=== PATIENT | male | born 1950 | race Caucasian/White ===

== ENCOUNTER 2022-03-25 09:24 | Outpatient (CLI) | payer BC, SELFPAY ==
[2022-03-25 09:56] LABS: Basophils Percent Auto 0.4 % (0.2-1.2); Eosinophils Absolute Auto 0.2 K/mm3 (0-0.3); Hematocrit 37.8 % (42.0-52.0); Hemoglobin 11.9 g/dL (14.0-18.0); Immature Granulocyte Absolute 0.03 K/mm3 (0.00-0.031); Immature Granulocyte Percent A 0.4 % (0-0.5); Lymphocytes Absolute Auto 0.86 K/mm3 (0.9-3.2); Lymphocytes Percent Auto 10.3 % (18.3-44.2); Mean Corpuscular HGB Conc 31.5 g/dl (32-36); Mean Corpuscular Hemoglobin 27.9 pg (26-34); Mean Corpuscular Volume 88.7 fl (80-100); Mean Platelet Volume 9.2 fl (7.4-10.4); Monocytes Percent Auto 11.4 % (2.6-8.5); Neutrophils Absolute Auto 6.3 K/mm3 (1.3-6.7); Neutrophils Percent Auto 75.5 % (45.5-73.1); Platelet Count Result 232 k/mm3 (150-375); Red Blood Count 4.26 M/mm3 (4.6-6.20); White Blood Count 8.3 K/mm3 (4.5-10.0)
[2022-03-25 10:11] LABS: Alanine Aminotransferase 17 U/L (6-50); Albumin Level 3.8 g/dL (3.5-5.1); Alkaline Phosphatase 94 U/L (38-126); Anion Gap 8 mmol/L (8-16); Aspartate Amino Transferase 25 U/L (17-59); Bilirubin,Total 0.2 mg/dL (0.2-1.3); Blood Urea Nitrogen 30 mg/dL (9-20); Calcium 8.9 mg/dL (8.4-10.2); Carbon Dioxide 29 mmol/L (22-30); Chloride 100 mmol/L (98-107); Cholesterol 134 mg/dL (0-200); Estimated Glomerular Filt Rate 40; Glucose 241 mg/dL (65-110); HDL Direct 36 mg/dL; Potassium 3.9 mmol/L (3.4-5.0); Sodium 137 mmol/L (137-145); Triglycerides 128 mg/dL (<150)
[2022-03-25 10:17] LABS: Creatinine Urine 84.3 mg/dL
[2022-03-25 10:21] LABS: LDL Cholesterol Direct 58 mg/dL
[2022-03-25 10:41] LABS: Cortisol Random 6.53 ug/dL
[2022-03-25 11:02] LABS: Free T4 Free Thyroxine 0.87 ng/mL (0.78-2.19)
[2022-03-25 11:16] LABS: Folic Acid 6.3 ng/mL (2.76->20); Hemoglobin A1C 7.9 % (<5.7)
[2022-03-25 11:25] LABS: MALB Creatinine Ratio 933.7 mg/g (0-30); Microalbumin Urine Random 787.1 mg/L (0-16.7)
[2022-03-27 22:21] LABS: C-Peptide 3.12 ng/mL (0.80-3.85)
[2022-03-29 06:11] LABS: Insulin Level Total 54.5 uIU/mL (<=19.6)
== END 2022-03-25 09:25 | disposition home or self-care (01) ==
LOC: ANHLAB 09:27
PROVIDERS: PCP Family Medicine; Visit Provider Nurse Practitioner
DX: E11.65 Type 2 diabetes mellitus with hyperglycemia (principal); E78.5 Hyperlipidemia, unspecified; R63.5 Abnormal weight gain
CPT/HCPCS: 36415; 80053; 80061; 82043; 82533; 82607; 82746; 83036; 83525; 84439; 84443; 84681; 85025

== ENCOUNTER 2022-04-29 13:54 | Outpatient (RCR) | payer BC, SELFPAY ==
[2022-04-29 14:00] VITALS: BP 170/68; PULSE 74; RESP 20; TEMP 36.8; O2SAT 98
[2022-04-29] MEDS: FAMOTIDINE 20 MG TABLET PO (14:05)
[2022-04-29] MEDS: diphenhydrAMINE HCl CAP 25 MG CAPSULE PO (14:06)
[2022-04-29] MEDS: ACETAMINOPHEN 325 MG TABLET 650 MG PO (14:06)
[2022-04-29] MEDS: BEBTELOVIMAB 175 MG/2 ML VIAL IV PUSH (14:25)
[2022-04-29 15:06] VITALS: BP 129/72; PULSE 68; O2SAT 97
== END 2022-04-29 16:29 ==
LOC: AMCINF 13:54
PROVIDERS: PCP Family Medicine; Referring Provider Family Medicine; Visit Provider Internal Medicine Hematology & Oncology
DX: U07.1 COVID-19 (principal); E11.22 Type 2 diabetes mellitus with diabetic chronic kidney disease; I12.9 Hypertensive chronic kidney disease with stage 1 through stage 4 chronic kidney disease, or unspecified chronic kidney disease; N18.9 Chronic kidney disease, unspecified
CPT/HCPCS: A9270; M0222; Q0222

== ENCOUNTER 2022-06-09 10:18 | Outpatient (CLI) | payer OTHER, SELFPAY ==
[2022-06-09 10:47] LABS: Basophils Percent Auto 0.5 % (0.2-1.2); Eosinophils Absolute Auto 0.2 K/mm3 (0-0.3); Eosinophils Percent Auto 3.5 % (0-4.4); Hematocrit 36.9 % (42.0-52.0); Hemoglobin 11.6 g/dL (14.0-18.0); Immature Granulocyte Absolute 0.03 K/mm3 (0.00-0.031); Immature Granulocyte Percent A 0.5 % (0-0.5); Lymphocytes Absolute Auto 1.25 K/mm3 (0.9-3.2); Lymphocytes Percent Auto 21.7 % (18.3-44.2); Mean Corpuscular HGB Conc 31.4 g/dl (32-36); Mean Corpuscular Hemoglobin 27.2 pg (26-34); Mean Corpuscular Volume 86.4 fl (80-100); Mean Platelet Volume 9.3 fl (7.4-10.4); Monocytes Absolute Auto 0.7 K/mm3 (0.1-0.6); Monocytes Percent Auto 12.3 % (2.6-8.5); Neutrophils Absolute Auto 3.6 K/mm3 (1.3-6.7); Neutrophils Percent Auto 61.5 % (45.5-73.1); Platelet Count Result 232 k/mm3 (150-375); Red Blood Count 4.27 M/mm3 (4.6-6.20); Red Cell Distribution Width 13.8 % (11.5-14.5); White Blood Count 5.8 K/mm3 (4.5-10.0)
[2022-06-09 10:55] LABS: Alanine Aminotransferase 12 U/L (6-50); Albumin Level 3.7 g/dL (3.5-5.1); Alkaline Phosphatase 81 U/L (38-126); Anion Gap 10 mmol/L (8-16); Aspartate Amino Transferase 19 U/L (17-59); Bilirubin,Total 0.4 mg/dL (0.2-1.3); Blood Urea Nitrogen 24 mg/dL (9-20); Calcium 8.7 mg/dL (8.4-10.2); Carbon Dioxide 27 mmol/L (22-30); Chloride 102 mmol/L (98-107); Cholesterol 124 mg/dL (0-200); Estimated Glomerular Filt Rate 40; Glucose 164 mg/dL (65-110); HDL Direct 33 mg/dL; Potassium 3.9 mmol/L (3.4-5.0); Sodium 139 mmol/L (137-145); Triglycerides 137 mg/dL (<150)
[2022-06-09 10:57] LABS: Iron 71 ug/dL (49-181)
[2022-06-09 11:06] LABS: LDL Cholesterol Direct 39 mg/dL
[2022-06-09 11:09] LABS: Creatinine Urine 59.7 mg/dL
[2022-06-09 11:09] LABS: Percent Iron Saturation 26 % (20-50)
[2022-06-09 11:14] LABS: Free T4 Free Thyroxine 0.89 ng/mL (0.78-2.19)
[2022-06-09 11:20] LABS: Hemoglobin A1C 8.2 % (<5.7)
[2022-06-09 11:27] LABS: MALB Creatinine Ratio 654.9 mg/g (0-30)
== END 2022-06-09 10:19 | disposition home or self-care (01) ==
LOC: ANHLAB 10:26
PROVIDERS: PCP Family Medicine; Visit Provider Nurse Practitioner
DX: D64.9 Anemia, unspecified (principal); E11.65 Type 2 diabetes mellitus with hyperglycemia; E78.5 Hyperlipidemia, unspecified
CPT/HCPCS: 36415; 80053; 80061; 82043; 82607; 82728; 82746; 83036; 83540; 83550; 84439; 84443; 85025

== ENCOUNTER 2022-07-07 09:58 | Outpatient (CLI) | payer OTHER, SELFPAY ==
[2022-07-07 11:33] LABS: Appearance Urine Clear (Clear); Bilirubin Urine Negative (Negative); Blood Urine 1+ (Negative); Color Urine Yellow (Yellow); Glucose Urine UA 2+ mg/dL (Negative); Ketones Urine Negative (Negative); Leukocyte Esterase Ur Negative LEU/UL (NEGATIVE); Nitrate Urine Negative (Negative); Protein Urine 1+ mg/dL (Negative); Specific Grav Ur 1.015 (1.001-1.035); Urobilinogen Urine 0.2 mg/dL (<2.0); pH Urine 5.5 (5.0-9.0)
[2022-07-07 11:42] LABS: Albumin Level 4.3 g/dL (3.5-5.1); Anion Gap 12 mmol/L (8-16); Blood Urea Nitrogen 36 mg/dL (9-20); Calcium 8.8 mg/dL (8.4-10.2); Carbon Dioxide 23 mmol/L (22-30); Chloride 101 mmol/L (98-107); Estimated Glomerular Filt Rate 37; Glucose 198 mg/dL (65-110); Phosphorus 4.4 mg/dL (2.5-4.5); Sodium 136 mmol/L (137-145)
[2022-07-07 11:43] LABS: RBC Urine 0-2 /hpf (0-2); Squamous Epithelial Cell Urine Rare /hpf (Few); WBC Urine 0-3 /hpf (0-3)
[2022-07-07 11:50] LABS: Add Urine Microscopic? YES
[2022-07-07 11:54] LABS: Parathyroid Intact 77.9 pg/mL (7.5-53.5)
[2022-07-07 12:03] LABS: Creatinine Urine 33.7 mg/dL
[2022-07-07 12:06] LABS: Vitamin D 25 Hydroxy 26.3 ng/mL
[2022-07-07 12:22] LABS: MALB Creatinine Ratio 685.8 mg/g (0-30); Microalbumin Urine Random 231.1 mg/L (0-16.7)
== END 2022-07-07 09:59 | disposition home or self-care (01) ==
PROVIDERS: PCP Family Medicine
DX: N18.30 Chronic kidney disease, stage 3 unspecified (principal)
CPT/HCPCS: 36415; 80069; 81001; 82043; 82306; 83970

== ENCOUNTER 2024-06-24 11:44 | Outpatient (CLI) | payer BC, SELFPAY ==
[2024-06-24 14:39] LABS: Alanine Aminotransferase 27 U/L (6-50); Albumin Level 4.2 g/dL (3.5-5.1); Alkaline Phosphatase 70 U/L (38-126); Anion Gap 10 mmol/L (4-12); Aspartate Amino Transferase 63 U/L (17-59); Bilirubin,Total 0.6 mg/dL (0.2-1.3); Blood Urea Nitrogen 55 mg/dL (9-20); Calcium 9.1 mg/dL (8.4-10.2); Carbon Dioxide 26 mmol/L (22-30); Chloride 100 mmol/L (98-107); Cholesterol 143 mg/dL (0-200); Estimated Glomerular Filt Rate 37; Glucose 140 mg/dL (65-110); HDL Direct 42 mg/dL; Potassium 4.9 mmol/L (3.4-5.0); Sodium 136 mmol/L (137-145); Triglycerides 126 mg/dL (<150)
[2024-06-24 14:50] LABS: LDL Cholesterol Direct 57 mg/dL
[2024-06-24 19:57] LABS: Hemoglobin A1C 8.5 % (<5.7)
== END 2024-06-24 11:45 | disposition home or self-care (01) ==
PROVIDERS: PCP Family Medicine; Visit Provider Family Medicine
DX: E11.9 Type 2 diabetes mellitus without complications (principal)
CPT/HCPCS: 36415; 80053; 80061; 83036

== ENCOUNTER 2024-07-04 15:03 | Outpatient (CLI) | payer BC, SELFPAY ==
[2024-07-04 18:27] LABS: Basophils Absolute Auto 0.1 K/mm3 (0.0-0.1); Basophils Percent Auto 0.7 % (0.2-1.2); Eosinophils Absolute Auto 0.4 K/mm3 (0-0.3); Eosinophils Percent Auto 5.1 % (0-4.4); Hemoglobin 12.9 g/dL (14.0-18.0); Immature Granulocyte Absolute 0.02 K/mm3 (0.00-0.031); Immature Granulocyte Percent A 0.3 % (0-0.5); Lymphocytes Percent Auto 19.8 % (18.3-44.2); Mean Corpuscular HGB Conc 33.1 g/dl (32-36); Mean Corpuscular Hemoglobin 29.6 pg (26-34); Mean Corpuscular Volume 89.4 fl (80-100); Mean Platelet Volume 9.6 fl (7.4-10.4); Monocytes Absolute Auto 0.9 K/mm3 (0.1-0.6); Monocytes Percent Auto 11.3 % (2.6-8.5); Neutrophils Absolute Auto 4.8 K/mm3 (1.3-6.7); Neutrophils Percent Auto 62.8 % (45.5-73.1); Platelet Count Result 185 k/mm3 (150-375); Red Blood Count 4.36 M/mm3 (4.6-6.20); White Blood Count 7.6 K/mm3 (4.5-10.0)
[2024-07-04 18:52] LABS: Alanine Aminotransferase 30 U/L (6-50); Alkaline Phosphatase 71 U/L (38-126); Anion Gap 11 mmol/L (4-12); Aspartate Amino Transferase 46 U/L (17-59); Bilirubin,Total 0.3 mg/dL (0.2-1.3); Blood Urea Nitrogen 57 mg/dL (9-20); Calcium 9.1 mg/dL (8.4-10.2); Carbon Dioxide 24 mmol/L (22-30); Chloride 99 mmol/L (98-107); Estimated Glomerular Filt Rate 33; Glucose 237 mg/dL (65-110); Potassium 4.7 mmol/L (3.4-5.0); Sodium 134 mmol/L (137-145)
[2024-07-04 19:01] LABS: Hemoglobin A1C 8.5 % (<5.7)
== END 2024-07-04 15:04 | disposition home or self-care (01) ==
PROVIDERS: PCP Family Medicine; Visit Provider Family Medicine
DX: D50.0 Iron deficiency anemia secondary to blood loss (chronic) (principal); E11.65 Type 2 diabetes mellitus with hyperglycemia; E78.5 Hyperlipidemia, unspecified; L97.512 Non-pressure chronic ulcer of other part of right foot with fat layer exposed
CPT/HCPCS: 36415; 80053; 83036; 85025

== ENCOUNTER 2024-10-05 11:01 | Outpatient (CLI) | payer BC, SELFPAY ==
[2024-10-05 14:38] LABS: Creatinine Urine 48.4 mg/dL
[2024-10-05 14:42] LABS: MALB Creatinine Ratio 168.2 mg/g (0-30); Microalbumin Urine Random 81.4 mg/L (0-16.7)
[2024-10-05 15:49] LABS: Alanine Aminotransferase 30 U/L (6-50); Alkaline Phosphatase 78 U/L (38-126); Anion Gap 4 mmol/L (4-12); Aspartate Amino Transferase 73 U/L (17-59); Bilirubin,Total 0.5 mg/dL (0.2-1.3); Blood Urea Nitrogen 55 mg/dL (9-20); Calcium 8.7 mg/dL (8.4-10.2); Carbon Dioxide 27 mmol/L (22-30); Chloride 107 mmol/L (98-107); Cholesterol 134 mg/dL (0-200); Estimated Glomerular Filt Rate 37; Glucose 148 mg/dL (65-110); HDL Direct 43 mg/dL; Sodium 138 mmol/L (137-145); Triglycerides 105 mg/dL (<150)
[2024-10-05 16:28] LABS: LDL Cholesterol Direct 48 mg/dL
[2024-10-05 21:05] LABS: Hemoglobin A1C 7.8 % (<5.7)
== END 2024-10-05 11:02 | disposition home or self-care (01) ==
LOC: ANHGOSHLAB 11:02
PROVIDERS: PCP Family Medicine; Visit Provider Family Medicine
DX: E11.9 Type 2 diabetes mellitus without complications (principal); I25.10 Atherosclerotic heart disease of native coronary artery without angina pectoris; N18.30 Chronic kidney disease, stage 3 unspecified
CPT/HCPCS: 36415; 80053; 80061; 82043; 83036

== ENCOUNTER 2024-12-20 07:48 | Outpatient (CLI) | payer BC, SELFPAY ==
--- OUTSIDE RECORDS SUMMARY | 2024-12-20 07:51 | XMS_ITS ---
Author Organization [facility] Address Unknown Problems Problem Status Start Date End Date MUSCLE WASTING AND ATROPHY, NOT ELSEWHERE CLASSIFIED, MULTIPLE SITES (Primary) (M62.59 - ICD-10-CM) ACTIVE 06/05/2023 OTHER INJURY OF UNSPECIFIED BODY REGION, SUBSEQUENT ENCOUNTER (T14.8XXD - ICD-10-CM) ACTIVE 06/05/2023 CHRONIC KIDNEY DISEASE, STAG E 3 UNSPECIFIED (N18.30 - ICD-10-CM) ACTIVE 06/05/2023 MUSCLE WEAKNESS (GENERALIZED) (M62.81 - ICD-10-CM) ACT JULIA 06/05/2023 UNSPECIFIED ABNORMALITIES OF GAIT AND MOBILITY (R26.9 - ICD-10-CM) ACTIVE 06/05/2023 COGNITIVE COMMUNICATION DEFICIT (R41.841 - ICD-10-CM) ACTIVE 06/05/2023 TYPE 2 DIABETES MELLITUS WIT HOUT COMPLICATIONS (E11.9 - ICD-10-CM) ACTIVE 06/05/2023 HYPERLIPIDEMIA, UNSPECIFIED (E78.5 - ICD-10-CM) ACTIVE 06/05/2023 HEART FAILURE, UNSPECIFIED (I50.9 - ICD-10-CM) ACTIVE 06/05/2023 OBSTRUCTIVE SLEEP APNEA (JUAN CARLOS LT) (PEDIATRIC) (G47.33 - ICD-10-CM) ACTIVE 06/05/2023 ATHEROSCLEROTIC HEART DISEAS E OF [place] 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) ACTIVE 06/05/2023 PRESENCE OF CARDIAC PACEMAKER (Z95.0 - ICD-10-CM) ACTI VE 06/05/2023 VENOUS INSUFFICIENCY (CHRONI C) (PERIPHERAL) (I87.2 - ICD-10-CM) ACTIVE 06/05/2023 HYPOVOLEMIA (E86.1 - ICD-10-CM) ACTIVE ACUTE POSTHEMORRHAGIC ANEMIA (D62 - ICD-10-CM) ACTIVE 06/05/2023 DIFFICULTY IN WALKING, NOT E LSEWHERE CLASSIFIED (R26.2 - ICD-10-CM) ACTIVE 06/05/2023 UNSPECIFIED FALL, SUBSEQUENT ENCOUNTER (W19.XXXD - ICD-10-CM) ACTIVE 06/05/2023 Results * CBC (INCLUDES DIFF/PLT) Performed by: [employer], [facility] Joint [facility] [address] [phone] Fede Hill MD Component Value Range Date PLATELET COUNT 358 Thousand/uL 140-400 06/13/2023 01:34 am EDT * Individual Tests: CBC (INCLUDES DIFF/PLT) / Enhanced PDF Report [id number] Performed by: [employer] [employer] [address] [address] Fede Hill MD Component Value Range Date Enhanced PDF Report [id number] See Attachment 06/13/2023 01:34 am EDT * CBC (INCLUDES DIFF/PLT) Performed by: [employer], [facility] [employer] [address] [address] Fede Hill MD Component Value Range Date HEMATOCRIT 29.9 % 38.5-50.0 06/13/2023 01:3 4 am EDT MCH 25.3 pg 27.0-33.0 06/13/2023 01:3 4 am EDT WHITE BLOOD CELL COUNT 7.0 Thousand/uL 3.8-10.8 01:34 am EDT RED BLOOD CELL COUNT 3.67 Million/uL 4.20-5.80 05/17 01:34 am EDT HEMOGLOBIN 9.3 g/dL 13.2-17.1 06/13/2023 01:3 4 am EDT MCHC 31.1 g/dL 32.0-36.0 06/13/2023 01:3 4 am EDT ABSOLUTE NEUTROPHILS 5159 cells/uL 1968-8656 2022 01:34 am EDT ABSOLUTE LYMPHOCYTES 980 cells/uL 850-3900 023 01:34 am EDT ABSOLUTE MONOCYTES 630 cells/uL 200-950 01:34 am EDT ABSOLUTE EOSINOPHILS 189 cells/uL 15-500 023 01:34 am EDT ABSOLUTE BASOPHILS 42 cells/uL 0-200 01:34 am EDT MPV 9.2 fL 7.5-12.5 06/13/2023 01:3 4 am EDT MCV 81.5 fL 80.0-100.0 06/13/2023 01:3 4 am EDT RDW 16.2 % 11.0-15.0 06/13/2023 01:3 4 am EDT NEUTROPHILS 73.7 % 06/13/2023 01:3 4 am EDT LYMPHOCYTES 14.0 % 06/13/2023 01:3 4 am EDT MONOCYTES 9.0 % 06/13/2023 01:3 4 am EDT EOSINOPHILS 2.7 % 06/13/2023 01:3 4 am EDT BASOPHILS 0.6 % 06/13/2023 01:3 4 am EDT * CBC (INCLUDES DIFF/PLT) [facility]formed [facility]: [facility] [address] [address] Fede Hill MD Component Value Range Date NEUTROPHILS 63.3 % 06/08/2023 03:3 6 pm EDT LYMPHOCYTES 16.9 % 06/08/2023 03:3 6 pm EDT MONOCYTES 14.8 % 06/08/2023 03:3 6 pm EDT EOSINOPHILS 4.7 % 06/08/2023 03:3 6 pm EDT BASOPHILS 0.3 % 06/08/2023 03:3 6 pm EDT HEMATOCRIT 27.5 % 38.5-50.0 06/08/2023 03:3 6 pm EDT RDW 16.5 % 11.0-15.0 06/08/2023 03:3 6 pm EDT * BASIC METABOLIC PANEL [facility]: [facility] [address] [place] [address] Fede Hill MD Component Value Range Date BUN/CREATININE RATIO 22 (calc) 6-22 023 03:36 pm EDT * CBC (INCLUDES DIFF/PLT) [facility]: [facility] [address] [phone] Fede Hill MD Component Value Range Date ABSOLUTE NEUTROPHILS 3988 cells/uL 1170-4831 2022 03:36 pm EDT ABSOLUTE LYMPHOCYTES 1065 cells/uL 850-3900 2022 03:36 pm EDT ABSOLUTE MONOCYTES 932 cells/uL 200-950 03:36 pm EDT ABSOLUTE EOSINOPHILS 296 cells/uL 15-500 023 03:36 pm EDT ABSOLUTE BASOPHILS 19 cells/uL 0-200 3 03:36 pm EDT MPV 9.3 fL 7.5-12.5 06/08/2023 03:3 6 pm EDT MCV 80.6 fL 80.0-100.0 06/08/2023 03:3 6 pm EDT HEMOGLOBIN 8.7 g/dL 13.2-17.1 06/08/2023 03:3 6 pm EDT MCHC 31.6 g/dL 32.0-36.0 06/08/2023 03:3 6 pm EDT * BASIC METABOLIC PANEL Performed by: [facility] [address] [address] Fede Hill MD Component Value Range Date CALCIUM 8.3 mg/dL 8.6-10.3 06/08/2023 03:3 6 pm EDT GLUCOSE 157 mg/dL 65-99 06/08/2023 03:3 6 pm EDT UREA NITROGEN (BUN) 35 mg/dL 7-25 06/08/20 03:36 pm EDT CREATININE 1.60 mg/dL 0.70-1.28 06/08/2023 03:3 6 pm EDT * CBC (INCLUDES DIFF/PLT) [facility]: [facility] [address] [address] Fede Hill MD Component Value Range Date RED BLOOD CELL COUNT 3.41 Million/uL 4.20-5.80 05/17 03:36 pm EDT * BASIC METABOLIC PANEL Performed by: [facility] [address] [phone] Fede Hill MD Component Value Range Date EGFR 45 mL/min/1.73m2 > OR = 60 06/08/2023 03:36 pm EDT SODIUM 138 mmol/L 135-146 06/08/2023 03:3 6 pm EDT POTASSIUM 4.4 mmol/L 3.5-5.3 06/08/2023 03:3 6 pm EDT CHLORIDE 103 mmol/L 98-110 06/08/2023 03:3 6 pm EDT CARBON DIOXIDE 27 mmol/L 20-32 06/08/2023 03 :36 pm EDT * CBC (INCLUDES DIFF/PLT) Performed by: [employer], [facility] [employer] [address] [address] Fede Hill MD Component Value Range Date MCH 25.5 pg 27.0-33.0 06/08/2023 03:3 6 pm EDT * Individual Tests: BASIC METABOLIC PANEL / CBC (INCLUDES DIFF/PLT) / Enhanced PDF Report [id number] Performed by: [employer], [facility] [employer] [address] [facility] [address] Fede Hill MD Component Value Range Date Enhanced PDF Report [id number] See Attachment 06/08/2023 03:36 pm EDT * CBC (INCLUDES DIFF/PLT) Performed by: [employer], [facility] [employer] [address] [address] Fede Hill MD Component Value Range Date PLATELET COUNT 281 Thousand/uL 140-400 06/08/2023 03:36 pm EDT WHITE BLOOD CELL COUNT 6.3 Thousand/uL 3.8-10.8 03:36 pm EDT Encounters Encounter Performer Performer Role Encounter Diagnoses Location Date Discharge - Discharged to home or self care - Home - Private home/apt. with no home health services [facility] 06/05/2023 02:30 pm EDT - 06/15/2023 03:41 pm EDT Immunizations Vaccine Date SARS-COV-2 (COVID-19) 01/10/2021 12:00 a m EST SARS-COV-2 (COVID-19) 12/10/2020 12:00 a m EST Social History
--- OUTSIDE RECORDS SUMMARY | 2024-12-20 07:51 | XMS_ITS | Encounter Summary ---
Author Organization [facility] Address [address] [place] [address] Phone Care Team Providers Care Political Advisor Name Role Phone María Ochoa APRN, AMA Unavailable [phone] Nicho Posada MD Primary Care Provider [phone] Gregorio Garza DPM Unavailable Unavailable Encounter Details Date Type Department Care Team (Late st Contact Info) Description 10/30/2022 Lab Requisition [facility] Laboratory Services [address] [place] [address] Raghavendra Kimble MD [address] [place] [address] Syncope and collapse Social History Tobacco Use Types Packs/Day Years Used Date Smoking Tobacco: Never Smokeless Tobacco: Never Alcohol Use Standard Drinks/Week Comments Yes 1 (1 standard drink = 0.6 oz pure alcohol) 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 No / Unsure 10/29/2022 10:33 AM INSURANCE COMPLIANCE ANALYST documented as of this encounter Plan of Treatment Not on file documented as of this encounter Procedures Procedure Name Priority Date/Time Associated Diagnosis Comments CBC WITH AUTO DIFFERENTIAL Routine 10/30/2022 8:15 AM INSURANCE COMPLIANCE ANALYST Syncope and collapse COMPLETE BLOOD COUNT (CBC) WITH DIFF Routine 10/30/2022 8:15 AM INSURANCE COMPLIANCE ANALYST Syncope and collapse BASIC METABOLIC PANEL W/ CALCIUM TOTAL Routine 10/30/2022 8:15 AM INSURANCE COMPLIANCE ANALYST Syncope and collapse ALBUMIN Routine 10/30/2022 8:15 AM INSURANCE COMPLIANCE ANALYST Syncope and collapse ADJUSTED CALCIUM*[facility] Routine 10/30/2022 8:15 AM INSURANCE COMPLIANCE ANALYST Syncope and collapse documented in this encounter Results * (ABNORMAL) ALBUMIN (10/30/2022 8:15 AM INSURANCE COMPLIANCE ANALYST) ALBUMIN 2.5(L) 3.4 - 4.8 g/dL 10/30/2022 12:02 PM INSURANCE COMPLIANCE ANALYST [facility] Blood Venipuncture / Unknown 10/30/2022 8:15 AM INSURANCE COMPLIANCE ANALYST 10/30/2022 10:36 AM INSURANCE COMPLIANCE ANALYST us Raghavendra Kimble MD CHEMISTRY ORDERABLES Final Resul t Performing Organization Address City/State/[facility] Co de Phone Number [facility] [address] [place] [address] * ADJUSTED CALCIUM*[facility] (10/30/2022 8:15 AM INSURANCE COMPLIANCE ANALYST) ADJUSTED CALCIUM 9.9 8.8 - 10.0 mg/dL 10/30/2022 12:03 PM INSURANCE COMPLIANCE ANALYST [facility] Blood Venipuncture / Unknown 10/30/2022 8:15 AM INSURANCE COMPLIANCE ANALYST 10/30/2022 10:36 AM INSURANCE COMPLIANCE ANALYST us Raghavendra Kibmle MD CHEMISTRY ORDERABLES Final Resul t [facility] [address] [place] [address] * (ABNORMAL) CBC WITH AUTO DIFFERENTIAL (10/30/2022 8:15 AM [facility]) WBC 9.16 3.90 - 11.00 10(3)/mcL 10/30/2022 11:41 AM [facility] RBC 4.06(L) 4.20 - 5.80 10(6)/mcL 10/30/2022 11:41 AM [facility] HEMOGLOBIN (HGB) 11.3(L) 12.6 - 17.4 g/dL 10/30/2022 11:41 AM [facility] HEMATOCRIT (HCT) 35.3(L) 39.8 - 52.2 % 10/30/2022 11:41 AM [facility] MCV 86.9 80.0 - 100.0 fL 10/30/2022 11:41 AM [facility] MCH 27.8 26.5 - 33.9 pg 10/30/2022 11:41 AM [facility] MCHC 32.0 31.5 - 36.0 g/dL 10/30/2022 11:41 AM [facility] PLATELET COUNT 345 140 - 445 10(3)/mcL 10/30/2022 11:41 AM [facility] MPV 9.2 >=0.0 fL 10/30/2022 11:41 AM [facility] RDW 14.0 12.0 - 15.0 % 10/30/2022 11:41 AM [facility] NEUTROPHILS 72.2 % 10/30/2022 11:41 AM [facility] LYMPHOCYTES 11.7 % 10/30/2022 11:41 AM [facility] MONOCYTES 11.1 % 10/30/2022 11:41 AM [facility] EOSINOPHILS 3.7 % 10/30/2022 11:41 AM [facility] IMMATURE GRANULOCYTE % 0.9 % 10/30/2022 11:41 AM [facility] BASOPHILS 0.4 % 10/30/2022 11:41 AM [facility] ABSOLUTE NEUTROPHILS 6.61 1.40 - 7.30 10(3)/[facility] 10/30/2022 11:41 AM [facility] ABSOLUTE LYMPHOCYTES 1.07(L) 1.30 - 2.90 10(3)/mcL 10/30/2022 11:41 AM [facility] ABSOLUTE MONOCYTES 1.02(H) 0.10 - 0.80 10(3)/mcL 10/30/2022 11:41 AM [facility] ABSOLUTE EOSINOPHIL 0.34(H) 0.00 - 0.30 10(3)/[facility] 10/30/2022 11:41 AM [facility] ABSOLUTE BASOPHILS 0.04 0.00 - 0.10 10(3)/[facility] 10/30/2022 11:41 AM [facility] ABSOLUTE IMMATURE GRANULOCYTE 0.08 0.00 - 0.10 10 (3) mcL. 10/30/2022 11:41 AM [facility] NRBC PER 100 WBC 0.0 0.0 - 0.0 % 10/30/2022 11:41 AM [facility] ABSOLUTE NRBC 0.00 10 (3) mcL. 10/30/2022 11:41 AM [facility] Blood Venipuncture / Unknown 10/30/2022 8:15 AM [facility] 10/30/2022 10:36 AM [facility] us Raghavendra Shyanne VILLARREAL HEMATOLOGY ORDERABLES Final Resu lt [facility] [address] [place] [address] * (ABNORMAL) BASIC METABOLIC PANEL W/ CALCIUM TOTAL (10/30/2022 8:15 AM [facility]) SODIUM 138 133 - 145 mmol/L 10/30/2022 11:55 AM [facility] POTASSIUM 4.3 3.5 - 5.1 mmol/L 10/30/2022 11:55 AM [facility] CHLORIDE 108 96 - 108 mmol/L 10/30/2022 11:55 AM [facility] CO2, VENOUS 24 21 - 32 mmol/L 10/30/2022 11:55 AM [facility] ANION GAP 10.3 10.0 - 20.0 mmol/L 10/30/2022 11:55 AM [facility] GLUCOSE 243(H) 83 - 110 mg/dL 10/30/2022 11:55 AM [facility] BUN 23(H) 6 - 19 mg/dL 10/30/2022 11:55 AM [facility] CREATININE, BLOOD 1.40(H) 0.50 - 1.30 mg/dL 10/30/2022 11:55 AM [facility] BUN/CREATININE RATIO 16 12 - 20 ratio 10/30/2022 11:55 AM [facility] CALCIUM 8.7(L) 8.8 - 10.0 mg/dL 10/30/2022 11:55 AM [facility] Comment:Calcium low. Correct ed calcium to follow. GFR, ESTIMATED 53 10/30/2022 11:55 AM [facility] Comment: This eGFR is calculated using 2020 CKD-EPI Creatinine equation without race modifier based on the NKF-ASN task force recommendations. -In most healthy people, the normal GFR is 90 mL/min/1.73 m2 or higher. -A result of 60-89 mL/min/1.73 m2 without kidney damage may be normal in some people (such as the elderly, infants) -A result of 60-89 mL/min/1.73 m2 for three months or more, along with kidney damage (such as persistent protein in the urine), means the person has early kidney disease. -When GFR is <60 for three months or more, chronic kidney disease (CKD) is present Blood Venipuncture / Unknown 10/30/2022 8:15 AM INSURANCE COMPLIANCE ANALYST 10/30/2022 10:36 AM [facility] us Raghavendra Kimble MD CHEMISTRY ORDERABLES Final Resul t [facility] [address] [place] [address] documented in this encounter Visit Diagnoses Diagnosis Syncope and collapse documented in this encounter Additional Health Concerns Assessment Noted Time PHQ-9 Depression Total Score: 0 08/05/20 3:00 PM CDT documented as of this encounter Care Teams Political Advisor Relationship Specialty Start Date End Date Nicho Posada MD [facility] [employer] [address] [place] [address] PCP - General Family Medicine 01/08/22 María Ochoa APRN, SLEEP TECH [address] [place] [address] Referring Provider Advanced Practice Nurse 05/01/21 Gregorio Garza DPM [address] [employer] [address] [place] [address] Consulting Physician Podiatry 07/03/22 documented as of this encounter
--- OUTSIDE RECORDS SUMMARY | 2024-12-20 07:52 | XMS_ITS | Encounter Summary ---
Author Organization [facility] Address [address] [place] [address] Phone Care Team Providers Care Ammonia Worker Name Role Phone María Ochoa APRN, PERLITE GRINDER Unavailable [phone] Nicho Posada MD Primary Care Provider [phone] Gregorio Garza DPM Unavailable Unavailable Encounter Details Date Type Department Care Team (Latest Contact Info) Description 10/31/[address] 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 No / Unsure 10/29/2022 10:33 AM MANAGER OF QUALITY documented as of this encounter Plan of Treatment Scheduled Orders Name Type Priority Associated Diagnoses Orde r Schedule BASIC METABOLIC PANEL W/ CALCIUM TOTAL Lab Routine Hypertension, unspecified type Expected: 10/31/2022 (Approximate), Expires: 10/31/2023 documented as of this encounter Visit Diagnoses Diagnosis Hypertension, unspecified type- Primary documented in this encounter Additional Health Concerns Assessment Noted Time PHQ-9 Depression Total Score: 0 08/05/20 21 3:00 PM CDT documented as of this encounter Care Teams Ammonia Worker Relationship Specialty Start Date End Date Nicho Posada MD [address] [place] [address] PCP - General Family Medicine 01/08/22 María Ochoa APRN, PERLITE GRINDER [address] [place] [address] Referring Provider Advanced Practice Nurse 05/01/21 Gregorio Garza DPM [address] [place] [address] Consulting Physician Podiatry 07/03/22 documented as of this encounter
--- OUTSIDE RECORDS SUMMARY | 2024-12-20 07:52 | XMS_ITS | Encounter Summary ---
Author Organization [facility] Address [address] [place] [address] Phone Care Team Providers Care Division Director Name Role Phone María Ochoa APRN, WOOD ROUTER Unavailable [phone] Nicho Posada MD Primary Care Provider [phone]- [phone] Gregorio Garza DPM Unavailable Unavailable Encounter Details Date Type Department Care Team (Late st Contact Info) Description 12/01/2022 Lab Requisition [facility] Laboratory Services [address] [place] [address] Brian Madsen MD [address] [place] [address] Chronic kidney disease, unspecified Social History Tobacco Use Types Packs/Day Years Used Date Smoking Tobacco: Never Smokeless Tobacco: Never Alcohol Use Standard Drinks/Week Comments Yes 1 (1 standard drink = 0.6 oz pure alcohol) 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 No / Unsure 11/20/2022 2:29 PM STONE DRILLER HELPER documented as of this encounter Plan of Treatment Not on file documented as of this encounter Procedures Procedure Name Priority Date/Time Associated Diagnosis Comments RENAL FUNCTION PANEL (RFP) Routine 12/01/2022 9:25 AM STONE DRILLER HELPER Chronic kidney disease, unspecified ADJUSTED CALCIUM*[facility] Routine 12/01/2022 9:25 AM STONE DRILLER HELPER Chronic kidney disease, unspecified documented in this encounter Results * ADJUSTED CALCIUM*[facility] (12/01/2022 9:25 AM STONE DRILLER HELPER) ADJUSTED CALCIUM 9.6 8.8 - 10.0 mg/dL 12/01/2022 1:00 PM [facility] Blood Venipuncture / Unknown 12/01/2022 9:25 AM STONE DRILLER HELPER 12/01/2022 10:22 AM STONE DRILLER HELPER us Brian Madsen MD CHEMISTRY ORDERABLES Final Result [address] [address] * (ABNORMAL) RENAL FUNCTION PANEL (RFP) (12/01/2022 9:25 AM STONE DRILLER HELPER) SODIUM 140 133 - 145 mmol/L 12/01/2022 12:34 PM [facility] POTASSIUM 4.3 3.5 - 5.1 mmol/L 12/01/2022 12:34 PM [facility] CHLORIDE 107 96 - 108 mmol/L 12/01/2022 12:34 PM [facility] CO2, VENOUS 29 21 - 32 mmol/L 12/01/2022 12:34 PM [facility] ANION GAP 8.3(L) 10.0 - 20.0 mmol/L 12/01/2022 12:34 PM [facility] GLUCOSE 226(H) 83 - 110 mg/dL 12/01/2022 12:34 PM [facility] Comment: Venipuncture should occur prior to administration of sulfasalazine and/or sulfapyridine. Glucose can be falsely depressed after administration of sulfasalazine, and falsely elevated with administration of sulfapyridine. BUN 21(H) 6 - 19 mg/dL 12/01/2022 12:34 PM [facility] CREATININE, BLOOD 1.20 0.50 - 1.30 mg/dL 12/01/2022 12:34 PM [facility] BUN/CREATININE RATIO 18 12 - 20 ratio 12/01/2022 12:34 PM [facility] ALBUMIN 2.9(L) 3.4 - 4.8 g/dL 12/01/2022 12:34 PM [facility] CALCIUM 8.7(L) 8.8 - 10.0 mg/dL 12/01/2022 12:34 PM [facility] Comment:Calcium low. Correct ed calcium to follow. PHOSPHORUS 3.7 2.6 - 4.5 mg/dL 12/01/2022 12:34 PM [facility] GFR, ESTIMATED 64 12/01/2022 12:34 PM [facility] Comment: This eGFR is calculated using [...] (CKD) is present Blood Venipuncture / Unknown 12/01/2022 9:25 AM STONE DRILLER HELPER 12/01/2022 10:22 AM STONE DRILLER HELPER us Brian Madsen MD CHEMISTRY ORDERABLES Final Result [facility] [address] [place] [address] documented in this encounter Visit Diagnoses Diagnosis Chronic kidney disease, unspecified documented in this encounter Additional Health Concerns Assessment Noted Time PHQ-9 Depression Total Score: 0 08/05/20 21 3:00 PM CDT documented as of this encounter Care Teams Division Director Relationship Specialty Start Date End Date Nicho Posada MD [address] [employer] [address] [place] [address] PCP - General Family Medicine 01/08/22 María Ochoa APRN, WOOD ROUTER [address] [place] [address] Referring Provider Advanced Practice Nurse 05/01/21 Gregorio Garza DPM [address] [place] [address] Consulting Physician Podiatry 07/03/22 documented as of this encounter
--- OUTSIDE RECORDS SUMMARY | 2024-12-20 07:52 | XMS_ITS | Encounter Summary ---
Author Organization [facility] Address [facility] [place] [address] [place] [address] Care Team Providers Care Chain Forming Machine Operator Name Role Phone Puma Coronado MD Unavailable Edu Savaedra MD Unavailable Unavailab Alexis Deras MD Unavailable [phone] Familia Ford APRN Unavailable [phone] Nicho Posada MD Primary Care Provider [phone]- [phone] Dhaval Dyer MD Unavailable Encounter Details Date Type Department Care Team (Late st Contact Info) Description 05/04/2023 Hospital Orders Only [place] [address] [place] [address] Dhaval Dyer MD [address] [place] [address] Social History Tobacco Use Types Packs/Day Years Used Date Smoking Tobacco: Never Smokeless Tobacco: Never Alcohol Use Standard Drinks/Week Comments No 0 (1 standard drink = 0.6 oz pur e alcohol) Sex and Gender Information Value Date Recorded Sex Assigned at Male 12/16/2024 1:31 PM PRACTICE PERFORMANCE MANAGER Legal Sex Male 9:51 PM CDT Gender Identity Male 02/24/2022 7:56 AM CDT Sexual Orientation Not on file COVID-19 Exposure Response Date Recorded In the last 10 days, have yo u been in contact with someone who was confirmed or suspected to have Coronavirus/COVID-19? No / Unsure 04/24/2023 10:21 AM CDT documented as of this encounter Functional Status * RETIRED Are you deaf or do you have serious difficulty hearing Answer Date of Assessment Author Status No 10/17/2022 12:00 AM PRACTICE PERFORMANCE MANAGER Acti ve * RETIRED Are you blind or do you have serious difficulty seeing, even when wearing glasses? Answer Date of Assessment Author Status No 10/17/2022 12:00 AM PRACTICE PERFORMANCE MANAGER Acti ve * Do you have serious difficulty walking or climbing stairs? Answer Date of Assessment Author Status Yes 10/17/2022 12:00 AM Mariaa Beaver RN Active * Do you have difficulty dressing or bathing? Answer Date of Assessment Author Status No 10/17/2022 12:00 AM Mariaa Beaver RN Active * Because of a physical, mental, or emotional condition, do you have difficulty doing errands alone such as visiting a doctor's office or shopping? Answer Date of Assessment Author Status No 10/17/2022 12:00 AM Mariaa Beaver RN Active documented as of this encounter Mental Status * Because of a physical, mental, or emotional condition, do you have serious difficulty concentrating, remembering, or making decisions? Answer Entry Date Author Status No 10/17/2022 12:00 AM Mariaa Beaver RN Active documented in this encounter Plan of Treatment Upcoming Encounters Date Type Department Care Team (Late st Contact Info) Description 02/02/2025 3:30 AM CDT Allied Health/Nurse Visit [facility] [address] [place] [address] Dhaval Dyer MD [address] [place] [address] 02/10/2025 11:15 AM CDT Office Visit [facility] [address] [place] [address] Servando Kumar, DPJohn [address] [place] [phone] documented as of this encounter Visit Diagnoses Not on filedocumented in this encounter Care Teams Chain Forming Machine Operator Relationship Specialty Start Date End Date Nicho Posada MD [address] [address] PCP - General FAMILY PRACTICE 02/21/22 Puma Coronado MD [address] [facility] [place] [place] [address] Mikael Production Support Consultant CARDIOVASCULAR DISEASE 01/28/18 Edu Saavedra MD [address] [facility] [place] [place] [address] Consulting Physician SURGERY 01/28/18 Alexis Bush MD [address] [place] [address] Consulting Physician INTERVENTIONAL CARDIOLOGY 01/09/21 Familia Ford APRN [address] [place] [address] Nurse Practitioner NURSE PRACTITIONER 01/09/21 Dhaval Dyer MD [address] [place] [phone] Consulting Physician CLINICAL CARDIAC ELECTROPHYSIOLOGY 05/08/23 documented as of this encounter
--- OUTSIDE RECORDS SUMMARY | 2024-12-20 07:52 | XMS_ITS | Encounter Summary ---
Author Organization [facility] Address [address] [place] [address] Phone Care Team Providers Care Advanced Practice Nurse Psychotherapist Name Role Phone María Ochoa APRN, CORE ASSEMBLY SUPERVISOR Unavailable [phone] Nicho Posada MD Primary Care Provider [phone] Gregorio Garza DPM Unavailable Unavailable Reason for Visit * Reason Comments Medication Refill Encounter Details Date Type Department Care Team (Late st Contact Info) Description 08/18/2022 Refill [facility] [address] [place] [address] Brian Madsen MD [address] [place] [address] Medication Refill Social History Tobacco Use Types Packs/Day Years Used Date Smoking Tobacco: Never Smokeless Tobacco: Never Alcohol Use Standard Drinks/Week Comments Yes 1 (1 standard drink = 0.6 oz pur e alcohol) Metal Trimmer PHQ-2 Answer Date Recorded Total Score - [...] suspected to have Coronavirus/COVID-19? No / Unsure 07/31/2022 4:15 PM CDT documented as of this encounter Miscellaneous Notes * Telephone Encounter - Kaylah Phillips RN - 08/18/2022 1:42 PM CDT Requested Prescriptions Pending Prescriptions Disp Refills ??? amLODIPine (NORVASC) 5 MG Tablet [Pharmacy Med Name: AMLODIPINE BESYLATE 5MG TABLETS] 90 Tablet0 Sig: TAKE 1 TABLET BY MOUTH DAILY documented in this encounter Plan of Treatment Not on file documented as of this encounter Visit Diagnoses Not on filedocumented in this encounter Additional Health Concerns Assessment Noted Time PHQ-9 Depression Total Score: 0 08/05/20 3:00 PM CDT documented as of this encounter Care Teams Advanced Practice Nurse Psychotherapist Relationship Specialty Start Date End Date Nicho Posada MD [address] [place] [address] [employer] [address] [place] [address] PCP - General Family Medicine 01/08/22 María Ochoa APRN, CORE ASSEMBLY SUPERVISOR [address] [place] [address] Referring Provider Advanced Practice Nurse 05/01/21 Gregorio Garza DPM [address] [place] [address] [email or web address] [address] [place] [address] Consulting Physician Podiatry 07/03/22 documented as of this encounter
--- OUTSIDE RECORDS SUMMARY | 2024-12-20 07:52 | XMS_ITS | Encounter Summary ---
Author Organization [facility] Address [address] [place] [address] Phone Care Team Providers Care Salesperson Men'S Hats Name Role Phone María Ochoa APRN, SUPERVISOR DUMPING Unavailable [phone] Nicho Posada MD Primary Care Provider [phone] Gregorio Garza DPM Unavailable Unavailable Encounter Details Date Type Department Care Team (Late st Contact Info) Description 10/31/2022 Lab Requisition [facility] Laboratory Services [address] [place] [address] Brian Madsen MD [address] [place] [address] Chronic kidney disease, stage 3 unspecified (HCC) Social History Tobacco Use Types Packs/Day Years Used Date Smoking Tobacco: Never Smokeless Tobacco: Never Alcohol Use Standard Drinks/Week Comments Yes 1 (1 standard drink = 0.6 oz pure alcohol) 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 No / Unsure 10/29/2022 10:33 AM CLINICAL PROGRAM MANAGER documented as of this encounter Plan of Treatment Not on file documented as of this encounter Procedures Procedure Name Priority Date/Time Associated Diagnosis Comments RENAL FUNCTION PANEL (RFP) Routine 10/31/2022 8:25 AM CLINICAL PROGRAM MANAGER Chronic kidney disease, stage 3 unspecified (HCC) [facility] Routine 10/31/2022 8:25 AM CLINICAL PROGRAM MANAGER Chronic kidney disease, stage 3 unspecified (HCC) documented in this encounter Results * ADJUSTED CALCIUM*[facility] (10/31/2022 8:25 AM CLINICAL PROGRAM MANAGER) ADJUSTED CALCIUM 10.0 8.8 - 10.0 mg/dL 10/31/2022 11:32 AM [facility] Blood Venipuncture / Unknown 10/31/2022 8:25 AM CLINICAL PROGRAM MANAGER 10/31/2022 9:54 AM CLINICAL PROGRAM MANAGER us Brian Madsen MD CHEMISTRY ORDERABLES Final Result [place] [id number] [place] [address] * (ABNORMAL) RENAL FUNCTION PANEL (RFP) (10/31/2022 8:25 AM CLINICAL PROGRAM MANAGER) SODIUM 136 133 - 145 mmol/L 10/31/2022 11:31 AM [facility] POTASSIUM 4.7 3.5 - 5.1 mmol/L 10/31/2022 11:31 AM [facility] CHLORIDE 106 96 - 108 mmol/L 10/31/2022 11:31 AM [facility] CO2, VENOUS 24 21 - 32 mmol/L 10/31/2022 11:31 AM [facility] ANION GAP 10.7 10.0 - 20.0 mmol/L 10/31/2022 11:31 AM [facility] GLUCOSE 275(H) 83 - 110 mg/dL 10/31/2022 11:31 AM [facility] Comment: Venipuncture should occur prior to administration of sulfasalazine and/or sulfapyridine. Glucose can be falsely depressed after administration of sulfasalazine, and falsely elevated with administration of sulfapyridine. BUN 23(H) 6 - 19 mg/dL 10/31/2022 11:31 AM [facility] CREATININE, BLOOD 1.40(H) 0.50 - 1.30 mg/dL 10/31/2022 11:31 AM [facility] BUN/CREATININE RATIO 16 12 - 20 ratio 10/31/2022 11:31 AM [facility] ALBUMIN 2.4(L) 3.4 - 4.8 g/dL 10/31/2022 11:31 AM [facility] CALCIUM 8.7(L) 8.8 - 10.0 mg/dL 10/31/2022 11:31 AM [facility] Comment:Calcium low. Correct ed calcium to follow. PHOSPHORUS 3.5 2.6 - 4.5 mg/dL 10/31/2022 11:31 AM [facility] GFR, ESTIMATED 53 10/31/2022 11:31 AM [facility] Comment: This eGFR is calculated using [...] (CKD) is present Blood Venipuncture / Unknown 10/31/2022 8:25 AM CLINICAL PROGRAM MANAGER 10/31/2022 9:54 AM CLINICAL PROGRAM MANAGER us Brian Madsen MD CHEMISTRY ORDERABLES Final Result [facility] [address] [place] [address] documented in this encounter Visit Diagnoses Diagnosis Chronic kidney disease, stage 3 unspecified (HCC) documented in this encounter Additional Health Concerns Assessment Noted Time PHQ-9 Depression Total Score: 0 08/05/20 21 3:00 PM CDT documented as of this encounter Care Teams Salesperson Men'S Hats Relationship Specialty Start Date End Date Nicho Posada MD [facility] [employer] [address] [place] [address] PCP - General Family Medicine 01/08/22 María Ochoa APRN, SUPERVISOR DUMPING [address] [place] [address] Referring Provider Advanced Practice Nurse 05/01/21 Gregorio Garza DPM [address] [facility] [employer] [address] [place] [address] Consulting Physician Podiatry 07/03/22 documented as of this encounter
--- OUTSIDE RECORDS SUMMARY | 2024-12-20 07:52 | XMS_ITS | Encounter Summary ---
Author Organization [facility] Address [address] [place] [address] Phone Care Team Providers Care Tech Intern Name Role Phone Mraía Ochoa APRN, CHILDCARE ATTENDANT Unavailable [phone] Nicho Posada MD Primary Care Provider [phone] Gregorio Garza DPM Unavailable Unavailable Reason for Visit * Reason Comments Medication Refill Encounter Details Date Type Department Care Team (Late st Contact Info) Description 11/07/2022 Refill [facility] [address] [place] [address] Brian Madsen MD [address] [place] [address] Medication Refill Social History Tobacco Use Types Packs/Day Years Used Date Smoking Tobacco: Never Smokeless Tobacco: Never Alcohol Use Standard Drinks/Week Comments Yes 1 (1 standard drink = 0.6 oz pure alcohol) 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 No / Unsure 10/29/2022 10:33 AM PHOTO FINISH PHOTOGRAPHER documented as of this encounter Miscellaneous Notes * Telephone Encounter - Suly Leong RN - 11/11/2022 4:03 PM CST PT CUR[place]HAS APPT 11/13 O FINISH PHOTOGRAPHER documented in this encounter Plan of Treatment Not on file documented as of this encounter Visit Diagnoses Not on filedocumented in this encounter Additional Health Concerns Assessment Noted Time PHQ-9 Depression Total Score: 0 08/05/20 21 3:00 PM CDT documented as of this encounter Care Teams Tech Intern Relationship Specialty Start Date End Date Nicho Posada MD [address] [place] [address] [employer] [address] [place] [address] PCP - General Family Medicine 01/08/22 María Ochoa, SPECIAL DELIVERY WORKER, CHILDCARE ATTENDANT [address] [place] [address] Referring Provider Advanced Practice Nurse 05/01/21 Gregorio Garza DPM [address] [place] [address] [employer] [address] [place] [address] Consulting Physician Podiatry 07/03/22 documented as of this encounter
--- OUTSIDE RECORDS SUMMARY | 2024-12-20 07:52 | XMS_ITS | Encounter Summary ---
Author Organization [facility] Address [address] [place] [address] Phone Care Team Providers Care Tube Draw Helper Name Role Phone María Ochoa APRN, EDUCATIONAL INTERPRETER Unavailable [phone] Nicho Posada MD Primary Care Provider [phone] Gregorio Garza DPM Unavailable Unavailable Encounter Details Date Type Department Care Team (Late st Contact Info) Description 10/31/2022 Lab Requisition [facility] Laboratory Services [address] [place] [address] Brian Madsen MD [address] [place] [address] Chronic kidney disease, stage 3 unspecified (HCC) Social History Tobacco Use Types Packs/Day Years Used Date Smoking Tobacco: Never Smokeless Tobacco: Never Alcohol Use Standard Drinks/Week Comments Yes 1 (1 standard drink = 0.6 oz pure alcohol) 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 No / Unsure 10/29/2022 10:33 AM DRY HEAT ROOM ATTENDANT documented as of this encounter Plan of Treatment Scheduled Orders Name Type Priority Associated Diagnoses Orde r Schedule URINALYSIS MICROSCOPIC IF INDICATED Lab Routine Chronic kidney disease, stage 3 unspecified (HCC) Ordered: 10/31/2022 UR CREATININE RANDOM Lab Routine Chronic kidney disease, stage 3 unspecified (HCC) Ordered: 10/31/2022 documented as of this encounter Visit Diagnoses Diagnosis Chronic kidney disease, stage 3 unspecified (HCC) documented in this encounter Additional Health Concerns Assessment Noted Time PHQ-9 Depression Total Score: 0 08/05/20 21 3:00 PM CDT documented as of this encounter Care Teams Tube Draw Helper Relationship Specialty Start Date End Date Nicho Posada MD [facility] [employer] [address] [place] [address] PCP - General Family Medicine 01/08/22 María Ochoa APRN, EDUCATIONAL INTERPRETER [address] [place] [address] Referring Provider Advanced Practice Nurse 05/01/21 Gregorio Garza DPM [facility] [employer] [address] [place] [address] Consulting Physician Podiatry 07/03/22 documented as of this encounter
--- OUTSIDE RECORDS SUMMARY | 2024-12-20 07:52 | XMS_ITS | Encounter Summary ---
Author Organization [facility] Address [address] [place] [address] Phone Care Team Providers Care Care Analyst Name Role Phone María Ochoa APRN, ADMEASURER Unavailable [phone] Nicho Posada MD Primary Care Provider [phone] Gregorio Garza DPM Unavailable Unavailable Encounter Details Date Type Department Care Team (Late st Contact Info) Description 10/31/2022 Lab Requisition [facility] Laboratory Services [address] [place] [address] Brian Madsen MD [address] [place] [address] Chronic kidney disease, stage 3 unspecified (HCC) Social History Tobacco Use Types Packs/Day Years Used Date Smoking Tobacco: Never Smokeless Tobacco: Never Alcohol Use Standard Drinks/Week Comments Yes 1 (1 standard drink = 0.6 oz pure alcohol) 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 No / Unsure 10/29/2022 10:33 AM DRAW FURNACE TENDER documented as of this encounter Plan of Treatment Not on file documented as of this encounter Procedures Procedure Name Priority Date/Time Associated Diagnosis Comments URINALYSIS MICROSCOPIC IF INDICATED Routine 10/31/2022 9:00 PM DRAW FURNACE TENDER UR PROTEIN/CREATININE RATIO Routine 10/31/2022 9:00 PM DRAW FURNACE TENDER UR MICROALBUMIN/CREATIN INE RATIO RANDOM Routine 10/31/2022 9:00 PM DRAW FURNACE TENDER documented in this encounter Results * (ABNORMAL) URINALYSIS MICROSCOPIC IF INDICATED (10/31/2022 9:00 PM DRAW FURNACE TENDER) SPECIFIC GRAVITY 1.016 1.003 - 1.035 11/01/2022 7:47 AM [facility] URINE PH 5.5 5.0 - 8.0 11/01/2022 7:47 AM [facility] WBC ESTERASE Negative Negative 11/01/2022 7:47 AM [facility] NITRITE Negative Negative 11/01/2022 7:47 AM [facility] PROTEIN, RANDOM URINE 1+(A) Negative 11/01/2022 7:47 AM [facility] URINE GLUCOSE, QUAL 3+(A) Negative 11/01/2022 7:47 AM [facility] URINE KETONES Negative Negative 11/01/2022 7:47 AM [facility] UROBILINOGEN <2.0 <2.0 mg/dL 11/01/2022 7:47 AM [facility] URINE BILIRUBIN Negative Negative 7:47 AM [facility] URINE BLOOD Negative Negative jamie/ul 11/01/2022 7:47 AM [facility] URINALYSIS COLOR Yellow Yellow 11/01/20 7:47 AM [facility] URINALYSIS CLARITY Clear Clear 11/01/2022 7:47 AM [facility] WBC (Urine) 0-5 0-5, Negative /hpf 11/01/2022 7:47 AM [facility] URINE RBC'S 0-5 0-5, Negative, None /hpf 11/01/2022 7:47 AM [facility] URINE MUCOUS Rare None, Rare, Few 11/01/2022 7:47 AM [facility] DMH RENAL EPI CELLS 11/01/2022 7:47 AM [facility] URINE SPERM 11/01/2022 7:47 AM [facility] URINE TRICHOMONAS 11/01/2022 7:47 AM [facility] URINE YEAST 11/01/2022 7:47 AM [facility] Urine Non-Phlebotomy Collection / Unknown 10/31/2022 9:00 PM DRAW FURNACE TENDER 10/31/2022 11:40 PM DRAW FURNACE TENDER us Brian Madsen MD URINE ORDERABLES Edited Re sult - Final [facility] [address] [place] [address] * (ABNORMAL) UR MICROALBUMIN/CREATININE RATIO RANDOM (10/31/2022 9:00 PM DRAW FURNACE TENDER) CREATININE URINE 119.0 >=0.0 mg/dL 11/01/2022 12:15 AM [facility] ALB/CREAT RATIO 256(H) 0 - 29 mg/g CRE 11/01/2022 12:15 AM [facility] Comment: Per ADA recommendations: Microalbumin/Creatinine Ratio <30 = normal, 30-300 = microalbuminuria, ? >300 = clinical albuminuria. ? Classification is based ??on at least 2 of 3 abnormal results within 3-6 months. [facility] MALB RANDOM UR 305.0 mg/L 11/01/2022 12:15 AM [facility] Urine Non-Phlebotomy Collection / Unknown 10/31/2022 9:00 PM DRAW FURNACE TENDER 10/31/2022 11:39 PM DRAW FURNACE TENDER us Brian Madsen MD URINE ORDERABLES Final Res ult Performing Organization Address City/[facility]/ZIP Co de Phone Number [address] [address] * (ABNORMAL) UR PROTEIN/CREATININE RATIO (10/31/2022 9:00 PM DRAW FURNACE TENDER) UR PROTEIN RAND, QT 88.1(H) 0.0 - 14.0 mg/dL 11/01/2022 12:51 AM DRAW FURNACE TENDER [facility] URINE CREATININE 119.0 mg/dL 11/01/2022 12:51 AM [facility] URINE PROTEIN/CREATIN INE RATIO 0.74 11/01/2022 12:51 AM [facility] Comment: Ratio calculation: Protein(mg/dl)/Creatinine(mg/dl). No reference range available. Urine Non-Phlebotomy Collection / Unknown 10/31/2022 9:00 PM DRAW FURNACE TENDER 10/31/2022 11:39 PM DRAW FURNACE TENDER us Brian Madsen MD URINE ORDERABLES Final Res ult Performing Organization Address [facility]/ZIP Co de Phone Number [address] [address] documented in this encounter Visit Diagnoses Diagnosis Chronic kidney disease, stage 3 unspecified (HCC) documented in this encounter Additional Health Concerns Assessment Noted Time PHQ-9 Depression Total Score: 0 08/05/20 21 3:00 PM CDT documented as of this encounter Care Teams Care Analyst Relationship Specialty Start Date End Date Nicho Posada MD [address] [place] [address] [address] [place] [address] PCP - General Family Medicine 01/08/22 María Ochoa APRN, ADMEASURER [address] [place] [address] Referring Provider Advanced Practice Nurse 05/01/21 Gregorio Garza DPM [address] [place] [address] [address] [place] [address] Consulting Physician Podiatry 07/03/22 documented as of this encounter
--- OUTSIDE RECORDS SUMMARY | 2024-12-20 07:52 | XMS_ITS | Encounter Summary ---
Author Organization [facility] Address [address] [place] [address] Phone Care Team Providers Care Conche Loader And Unloader Name Role Phone María Ochoa APRN, DISPLAY DEPARTMENT MANAGER Unavailable [phone] Nicho Posada MD Primary Care Provider [phone] Gregorio Garza DPM Unavailable Unavailable Reason for Visit * Reason Comments Medication Refill Encounter Details Date Type Department Care Team (Late st Contact Info) Description 10/17/2022 Refill [facility] [address] [place] [address] Brian Madsen MD [address] [place] [address] Medication Refill Social History Tobacco Use Types Packs/Day Years Used Date Smoking Tobacco: Never Smokeless Tobacco: Never Alcohol Use Standard Drinks/Week Comments Yes 1 (1 standard drink = 0.6 oz pure alcohol) 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 No / Unsure 10/13/2022 1:07 PM X RAY OPERATOR documented as of this encounter Plan of Treatment Not on file documented as of this encounter Visit Diagnoses Not on filedocumented in this encounter Additional Health Concerns Assessment Noted Time PHQ-9 Depression Total Score: 0 08/05/20 21 3:00 PM CDT documented as of this encounter Care Teams Conche Loader And Unloader Relationship Specialty Start Date End Date Nicho Posada MD [facility] [employer] [address] [place] [address] PCP - General Family Medicine 01/08/22 María Ochoa APRN, DISPLAY DEPARTMENT MANAGER [address] [place] [address] Referring Provider Advanced Practice Nurse 05/01/21 Gregorio Garza DPM [facility]7 [employer] [address] [place] [address] Consulting Physician Podiatry 07/03/22 documented as of this encounter
--- OUTSIDE RECORDS SUMMARY | 2024-12-20 07:52 | XMS_ITS | Encounter Summary ---
Author Organization [facility] Address [address] [place] [address] Phone Care Team Providers Care Safety Aide Name Role Phone María Ochoa APRN, REGIONAL SALES LEADER Unavailable [phone] Nicho Posada MD Primary Care Provider [phone] Gregorio Garza DPM Unavailable Unavailable Reason for Visit * Reason Comments Medication Refill Encounter Details Date Type Department Care Team (Late st Contact Info) Description 11/16/2022 Refill [facility] [address] [place] [address] Brian Madsen MD [address] [place] [address] Medication Refill Social History Tobacco Use Types Packs/Day Years Used Date Smoking Tobacco: Never Smokeless Tobacco: Never Alcohol Use Standard Drinks/Week Comments Yes 1 (1 standard drink = 0.6 oz pure alcohol) 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 No / Unsure 11/19/2022 9:28 AM HEAD OF OPERATION AND LOGISTICS documented as of this encounter Functional Status * Question Answer Date of Assessment Author Little interest or pleasure in doing things Not at all 11/19/2022 10:00 AM HEAD OF OPERATION AND LOGISTICS Suly Leong RN Feeling down, depressed, or hopeless Not at all 11/19/2022 10:00 AM HEAD OF OPERATION AND LOGISTICS Suly Leong RN * Over the past 2 weeks, how often have you been bothered by any of the following problems? 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 documented in this encounter Plan of Treatment Not on file documented as of this encounter Visit Diagnoses Not on filedocumented in this encounter Additional Health Concerns Assessment Noted Time PHQ-9 Depression Total Score: 0 08/05/20 21 3:00 PM CDT documented as of this encounter Care Teams Safety Aide Relationship Specialty Start Date End Date Nicho Posada MD [address] [place] [address] [employer] [address] [place] [address] PCP - General Family Medicine 01/08/22 María Ochoa APRN, REGIONAL SALES LEADER [address] [place] [address] Referring Provider Advanced Practice Nurse 05/01/21 Gregorio Garza DPM [address] [place] [address] [employer] [address] [place] [address] Consulting Physician Podiatry 07/03/22 documented as of this encounter
--- OUTSIDE RECORDS SUMMARY | 2024-12-20 07:53 | XMS_ITS | Encounter Summary ---
Author Organization [facility] Address [address] [place] [address] Phone Care Team Providers Care Anode Machine Operator Name Role Phone Vladimir Luis MD Primary Care Provider [phone] Mark Mai DPM Unavailable Unavailab María Haile CLINICAL DOCUMENTATION SPEC, ALTERATIONS EXPERT Unavailable [phone] Nicho Posada MD Primary Care Provider [phone] Gregorio Garza DPM Unavailable Unavailable Reason for Visit * Reason Comments Medication Refill Encounter Details Date Type Department Care Team (Late st Contact Info) Description 12/23/2021 Refill [facility] [address] [place] [address] Brian Madsen MD [facility] [place] [address] Medication Refill Social History Tobacco Use Types Packs/Day Years Used Date Smoking Tobacco: Never Smokeless Tobacco: Never Alcohol Use Standard Drinks/Week Comments Yes 1 (1 standard drink = 0.6 oz pur e alcohol) Residential Plumber PHQ-2 Answer Date Recorded Total Score - Questions 1-9 0 11/16 Sexually Active Control Partners Comments Never Sex and Gender Information Value Date Recorded Sex Assigned at Not on file Legal Sex Male 10:55 AM CDT Gender Identity Not on file Sexual Orientation Not on file COVID-19 Exposure Response Date Recorded In the last month, have you been in contact with someone who was confirmed or suspected to have Coronavirus / COVID-19? No / Unsure 12/02/2021 4:[address] documented as of this encounter Plan of Treatment Not on file documented as of this encounter Visit Diagnoses Not on filedocumented in this encounter Additional Health Concerns Assessment Noted Time PHQ-9 Depression Total Score: 0 08/05/20 21 3:00 PM CDT documented as of this encounter Care Teams Anode Machine Operator Relationship Specialty Start Date End Date Vladimir Luis MD [address] [place] [address] PCP - General Family Medicine 07/25/16 01/07/22 Nicho Posada MD [address] [place] [address] [address] [place] [address] PCP - General Family Medicine 01/08/22 Mark Mai DPM [address] [place] [address] Consulting Physician Podiatry 07/25/16 07/31/22 María Ochoa APRN, ALTERATIONS EXPERT [address] [place] [address] Referring Provider Advanced Practice Nurse 05/01/21 Gregorio Garza DPM [address] [place] [address] [email or web address] [address] [place] [address] Consulting Physician Podiatry 07/03/22 documented as of this encounter
--- OUTSIDE RECORDS SUMMARY | 2024-12-20 07:53 | XMS_ITS | Encounter Summary ---
Author Organization [facility] Address [address] [place] [address] Phone Care Team Providers Care Software Quality Test Engineer Name Role Phone María Ochoa APRN, VEST TAILOR Unavailable [phone] Nicho Posada MD Primary Care Provider [phone] Gregorio Garza DPM Unavailable Unavailable Encounter Details Date Type Department Care Team (Late st Contact Info) Description 11/05/2022 Lab Requisition [facility] Laboratory Services [address] [place] [address] Brian Madsen MD [address] [place] [address] Chronic kidney disease, stage 3 unspecified (HCC) Social History Tobacco Use Types Packs/Day Years Used Date Smoking Tobacco: Never Smokeless Tobacco: Never Alcohol Use Standard Drinks/Week Comments Yes 1 (1 standard drink = 0.6 oz pure alcohol) wine , 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 No / Unsure 10/29/2022 10:33 AM ARCH PAD CEMENTER documented as of this encounter Plan of Treatment Not on file documented as of this encounter Procedures Procedure Name Priority Date/Time Associated Diagnosis Comments BASIC METABOLIC PANEL W/ CALCIUM TOTAL Routine 11/05/2022 7:45 AM ARCH PAD CEMENTER Chronic kidney disease, stage 3 unspecified (HCC) documented in this encounter Results * (ABNORMAL) BASIC METABOLIC PANEL W/ CALCIUM TOTAL (11/05/2022 7:45 AM ARCH PAD CEMENTER) SODIUM 136 133 - 145 mmol/L 11/05/2022 10:40 AM [facility] POTASSIUM 4.7 3.5 - 5.1 mmol/L 11/05/2022 10:40 AM [facility] CHLORIDE 103 96 - 108 mmol/L 11/05/2022 10:40 AM [facility] CO2, VENOUS 27 21 - 32 mmol/L 11/05/2022 10:40 AM [facility] ANION GAP 10.7 10.0 - 20.0 mmol/L 11/05/2022 10:40 AM [facility] GLUCOSE 225(H) 83 - 110 mg/dL 11/05/2022 10:40 AM [facility] BUN 31(H) 6 - 19 mg/dL 11/05/2022 10:40 AM [facility] CREATININE, BLOOD 1.40(H) 0.50 - 1.30 mg/dL 11/05/2022 10:40 AM [facility] BUN/CREATININE RATIO 22(H) 12 - 20 ratio 11/05/2022 10:40 AM [facility] CALCIUM 8.9 8.8 - 10.0 mg/dL 11/05/2022 10:40 AM [facility] GFR, ESTIMATED 53 11/05/2022 10:40 AM [facility] Comment: This eGFR is calculated using [...] (CKD) is present Blood Venipuncture / Unknown 11/05/2022 7:45 AM ARCH PAD CEMENTER 11/05/2022 9:34 AM ARCH PAD CEMENTER us Brian Madsen MD CHEMISTRY ORDERABLES Final Result Performing Organization Address City/State/[facility] Co de Phone Number [facility] [address] [place] [address] documented in this encounter Visit Diagnoses Diagnosis Chronic kidney disease, stage 3 unspecified (HCC) documented in this encounter Additional Health Concerns Assessment Noted Time PHQ-9 Depression Total Score: 0 08/05/20 21 3:00 PM CDT documented as of this encounter Care Teams Software Quality Test Engineer Relationship Specialty Start Date End Date Nicho Posada MD [facility] [address] [address] [place] [address] PCP - General Family Medicine 01/08/22 María Ochoa APRN, VEST TAILOR [address] [place] [address] Referring Provider Advanced Practice Nurse 05/01/21 Gregorio Garza DPM [address] [place] [address] Consulting Physician Podiatry 07/03/22 documented as of this encounter
--- OUTSIDE RECORDS SUMMARY | 2024-12-20 07:53 | XMS_ITS | Clinical Summary ---
Author Organization [facility] Address [address] [facility] [address] [place] [address] Phone Care Team Providers Care Laboratory Technical Specialist Name Role Phone María Ochoa APRN, AMA Unavailable [phone] Nicho Posada MD Primary Care Provider [phone] Gregorio Garza DPM Unavailable Unavailable Allergies No known active allergies Medications Aspirin 81 MG Tablet Take 81 mg by mouth daily. Active atorvastatin (LIPITOR) 20 MG Tablet Take 1 Tab by mouth daily. 8 Active nitroGLYCERIN (NITROSTAT) 0.4 MG SL Tablet Use as directed 2 Active acetaminophen (TYLENOL) 325 MG Tablet Take 650 mg by mouth every 6 hours as needed. Active ascorbic acid 500 MG Tablet Take 500 mg by mouth daily. Active insulin lispro (HumaLOG) 100 UNIT/ML Solution by Subcutaneous route 3 times daily (after meals). SLIDING SCALE Use as directed Active insulin glargine (LANTUS) 100 UNIT/ML Solution 15 Units by Subcutaneous route every evening. Active Multiple Vitamin (MULTIVITAMINS PO) Take 1 Tablet by mouth daily. Active losartan (COZAAR) 25 MG Tablet Take 1 Tablet by mouth daily. 3 Active metoprolol Succinate (TOPROL-XL) 50 MG TABLET SR 24 HR Take 1 Tablet by mouth daily. 3 Active omeprazole (PriLOSEC) 40 MG CAPSULE DELAYED RELEASE Take 40 mg by mouth daily. Active Semaglutide,0.2 5 or 0.5MG/DOS, (Ozempic, 0.25 or 0.5 MG/DOSE,) 2 MG/1.5ML Solution Pen-injector Use as directed 1 Active furosemide (LASIX) 40 MG Tablet Take 1 Tablet by mouth daily. 3 Active Farxiga 10 MG Tablet Take 1 Tablet by mouth daily. 3 Active Continuous Blood Gluc Transmit (Dexcom G6 Transmitter) Misc Use as directed 3 Active Eliquis 5 MG Tablet Take 1 Tablet by mouth 2 times daily. 3 Active amLODIPine (NORVASC) 10 MG Tablet Take 1 Tablet by mouth daily. 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 05/28/2021 Bilateral leg edema 05/28/2021 Toenail avulsion, subsequent encounter 1 Onychocryptosis 08/16/2020 manager long term care (current) use of insulin 07/11/2019 Chest pain 07/11/2019 CKD (chronic kidney disease) stage 3, GFR 30-59 ml/min 07/11/2019 Nuclear sclerotic cataract of left eye 8 Overview (07/27/2018): RIGHT CATARACT SURGERY [facility] DIABETIC Diabetic polyneuropathy asso ciated with type 2 diabetes mellitus 02/25/2018 Paronychia of great toe, right 10/15/2017 Skin ulceration 04/30/2017 Onychogryposis 08/21/2016 Type II diabetes mellitus with peripheral angiop athy [place] or callus Family History Medical History Relation Name Comments Heart Disease Father Ovarian Cancer Mother Relation Name Status Comments Father Mother Social History Tobacco Use Types Packs/Day Years Used Date Smoking Tobacco: Never Smokeless Tobacco: Never Tobacco Cessation:Counseling Given: Not Answered Alcohol Use Standard Drinks/Week Comments Yes 1 (1 standard drink = 0.6 oz pure alcohol) 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 , 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 PHQ-2 Answer Date Recorded Total Score - Questions 1-9 0 09/1 03/2022 Sexually Active Control Partners Comments Never Sex and Gender Information Value Date Recorded Sex Assigned at Not on file Legal Sex Male 10:55 AM CDT Gender Identity Not on file Sexual Orientation Not on file Last Filed Vital Signs Vital Sign Reading Time Taken Comments Blood Pressure 142/84 01/01/2023 10:58 AM SPIRAL SPRING WINDER Pulse 85 01/01/2023 10:58 AM SPIRAL SPRING WINDER Temperature 37 ??C (98.6 ??F) 10/13/2022 1:21 PM SPIRAL SPRING WINDER Respiratory Rate 16 10/01/2022 9:32 AM SPIRAL SPRING WINDER Oxygen Saturation 96% 10/01/2022 9:32 AM SPIRAL SPRING WINDER Inhaled Oxygen Concentration - - Weight 122.5 kg (270 lb) 01/01/2023 10:58 AM SPIRAL SPRING W[facility]ER Height 182.9 cm (6') 01/01/2023 10:58 AM SPIRAL SPRING WINDER Body Mass Index 36.62 01/01/2023 10:58 AM SPIRAL SPRING W[facility]ER Plan of Treatment Health Maintenance Due Date Last Done Comments Diabetes: Eye Exam 1950 Diabetes: Foot Exam 1950 Hepatitis C Virus (HCV) Screening 1950 Colonoscopy 1995 Colorectal Cancer Screening 1995 Cologuard 2000 Immunochemical Fecal Occult Blood 2000 Zoster Immunization (1 of 2) 2000 Respiratory Syncytial Virus (RSV) Immunization (Adult) (1 - Risk 60-74 years 1-dose series) 2010 Diabetes: Hemoglobin A1c 04/08/2022 10/09/2021 Diabetes: Nephropathy Screening 10/31/2023 10/31/2022, 07/23/2022, 10/09/2021, Additional history exists Influenza Immunization (#1) 07/17/202408/16, 08/30/2021, 08/09/2020, Additional history exists SARS-COV-2 Immunization ( season) 2024 09/03/2022, 10/22/2021, 01/10/2021, Additional history exists Pneumococcal Immunization (50+ years) Completed 09/18/2017, 05/07/2015 Pneumococcal Immunization Combined Discontinued 09/18/2017, 05/07/2015 DTaP/Tdap/Td Immunization Discontinued 02/04/2019 TdaP Immunization Completed 02/04/2019 Hepatitis B Immunization Aged Out No longer eligible based on patient's age to complete this topic Meningococcal Immunization (ACWY) Aged Out No longer eligible based on patient's age to complete this topic Rotavirus Immunization Aged Out No lo nger eligible based on patient's age to complete this topic Medical Devices Implanted Type Area Farm Equipment Mechanic Device Identifier Shelf Expiration Date Model / Serial / Lot Iol Toric Sn6at - [id number] Implanted:Qty: 1 on 08/16/2018 by Gregory Jordan MD at [facility] IMPLANT Right: Eye [employer] 01/14/2019 [id number] / [id number] / UNKNOWN Procedures Procedure Name Priority Date/Time Associated Diagnosis Comments UR MICROALBUMIN/CREATI NINE RATIO RANDOM Routine 10/31/2022 9:00 PM SPIRAL [employer]ING W[facility]ER HEMOGLOBIN A1C W/ ESTIMATED GLUCOSE Routine 10/09/2021 11:03 AM SPIRAL [employer]ING W[employer]ER Type 2 diabetes with nephropathy (HCC) from Last 3 Months or Most Recently Relevant to Health Maintenance Results * (ABNORMAL) UR MICROALBUMIN/CREATININE RATIO RANDOM (10/31/2022 9:00 PM SPIRAL SPRING WINDER) CREATININE URINE 119.0 >=0.0 mg/dL 11/01/2022 12:15 AM [facility] ALB/CREAT RATIO 256(H) 0 - 29 mg/g CRE 11/01/2022 12:15 AM [facility] Comment: Per ADA recommendations: Microalbumin/Creatinine Ratio <30 = normal, 30-300 = microalbuminuria, ? >300 = clinical albuminuria. ? Classification is based ??on at least 2 of 3 abnormal results within 3-6 months. DMH MALB RANDOM UR 305.0 mg/L 11/01/2022 12:15 AM [facility] Urine Non-Phlebotomy Collection / Unknown 10/31/2022 9:00 PM SPIRAL SPRING W[facility]ER 10/31/2022 11:39 PM SPIRAL [employer]ING [facility]ER us Brian Madsen MD URINE ORDERABLES Final Res ult [facility] [address] [place] [address] * (ABNORMAL) HEMOGLOBIN A1C W/ ESTIMATED GLUCOSE (10/09/2021 11:03 AM SPIRAL SPRING WINDER) HGB-A1C 8.0(H) 4.0 - 6.0 % 10/09/2021 2:06 PM SP[facility] [employer] Est Average Glucose 182.9 mg/dL 10/09/2021 2:06 PM SPIRAL [employer] Blood Venipuncture / Unknown 10/09/2021 11:03 AM SPIRAL [facility]ING [facility]ER 10/09/2021 1:52 PM SPIRAL [employer]ING [facility]ER Narrative [facility] - 10/09/2021 2:06 PM SPIRAL [employer] HEMOGLOBIN A1C: DIABETIC PATIENTS: WELL-CONTROLLED: ?? 6.2 - 7.0 INTERMEDIATE WELL-CONTROLLED: ??7.0 - 9.0 POORLY-CONTROLLED: ??>9.0 Vladimir Luis MD CHEMISTRY ORDERABLES Catia l Result Performing Organization Address City/[facility] Co de Phone Number [facility] [place] [address] from Last 3 Months or Most Recently Relevant to Health Maintenance Insurance [employer] MEDICARE [employer] Advance Directives * Full Code (Latest Code Status on File) Date Activated Date Inactivated Comments 07/11/2019 6:52 PM 07/13/2019 6:23 PM CPR-Full Jacek atment: FULL ARREST: Attempt Resuscitation/CPR wit intubation and mechanical ventilation. PRE-ARREST: Use entire range of life support measures to stabilize the patient. Care Teams Laboratory Technical Specialist Relationship Specialty Start Date End Date Nicho Posada MD [address] [place] [address] [address] [place] [address] PCP - General Family Medicine 01/08/22 María Ochoa APRN, PLASTICATOR [address] [place] [address] Referring Provider Advanced Practice Nurse 05/01/21 Gregorio Garza DPM [address] [place] [address] [address] [place] [address] Consulting Physician Podiatry 07/03/22
--- OUTSIDE RECORDS SUMMARY | 2024-12-20 07:53 | XMS_ITS | Encounter Summary ---
Author Organization [facility] Address [address] [place] [address]. [place] [address] [place] [address] Care Team Providers Care Casing Sewer Name Role Phone Puma Coronado MD Unavailable Edu Saavedra MD Unavailable Unavailab Alexis Deras MD Unavailable [phone] Familia Ford APRN Unavailable [phone] Nicho Posada MD Primary Care Provider + [phone] Raghavendra Kimble MD Unavailable [phone] Dhaval Dyer MD Unavailable Encounter Details Date Type Department Care Team (Late Contact Info) Description 01/30/2018 Abstract [facility] CONVERSION [address] [place], [place] [address] , Generic Conversion, Social History Tobacco Use Types Packs/Day Years Used Date Smoking Tobacco: Never Alcohol Use Standard Drinks/Week Comments No 0 (1 standard drink = 0.6 oz pur e alcohol) Sex and Gender Information Value Date Recorded Sex Assigned at Male 12/16/2024 1:31 PM NETWORK PROGRAMMER Legal Sex Male 9:51 PM CDT Gender Identity Male 02/24/2022 7:56 AM CDT Sexual Orientation Not on file documented as of this encounter Plan of Treatment Upcoming Encounters Date Type Department Care Team (Late Contact Info) Description 02/02/2025 3:30 AM CDT Allied Health/Nurse Visit [facility] [address] [place] [address] Dhaval Dyer MD [address] [place] [address] 02/10/2025 11:15 AM CDT Office Visit [facility] [address] [place] [address] Servando Kumar, DPM [address] [place] [address] documented as of this encounter Visit Diagnoses Not on filedocumented in this encounter Additional Health Concerns Infection Onset Date Last Indicated Resolved Time COVID-19 Rule Out 10/23/2022 10/23/2022 10/23/2022 1:33 PM NETWORK PROGRAMMER documented as of this encounter Care Teams Casing Sewer Relationship Specialty Start Date End Date Nicho Posada MD [address] [place] [address] PCP - General FAMILY PRACTICE 02/21/22 Puma Coronado MD [address] [facility] [place] [place] [address] Mikael Trip Follower CARDIOVASCULAR DISEASE 01/28/18 Edu Saavedra MD [address] [facility] [place] [address] Consulting Physician SURGERY 01/28/18 Alexis Bush MD [address] [place] [address] Consulting Physician INTERVENTIONAL CARDIOLOGY 01/09/21 Familia Ford APRN [address] [address] Nurse Practitioner NURSE PRACTITIONER 01/09/21 Raghavendra Kimble MD [address] [place] [address] HOSPITALIST 10/24/22 01/13/23 Dhaval Dyer MD [address] [place] [address] Consulting Physician CLINICAL CARDIAC ELECTROPHYSIOLOGY 05/08/23 documented as of this encounter
--- OUTSIDE RECORDS SUMMARY | 2024-12-20 07:53 | XMS_ITS | Encounter Summary ---
Author Organization [facility] Address [address] [place] [address] Phone Care Team Providers Care Deputy Controller Name Role Phone Vladimir Luis MD Primary Care Provider [phone] Mark Mai DPM Unavailable Unavailab María Haile TERMINAL BLOCK ASSEMBLER, PHOTOGRAPH TINTER Unavailable [phone] Nicho Posada MD Primary Care Provider [phone] Gregorio Garza DPM Unavailable Unavailable Reason for Visit * Reason Comments Medication Refill Encounter Details Date Type Department Care Team (Late st Contact Info) Description 11/11/2021 Refill [facility] [address] [place] [address] Brian Madsen MD [facility] [place] [address] Medication Refill Social History Tobacco Use Types Packs/Day Years Used Date Smoking Tobacco: Never Smokeless Tobacco: Never Alcohol Use Standard Drinks/Week Comments Yes 1 (1 standard drink = 0.6 oz pur e alcohol) Teacher Early Childhood Development PHQ-2 Answer Date Recorded Total Score - Questions 1-9 0 10/16 Sexually Active Control Partners Comments Never Sex [...] have Coronavirus / COVID-19? No / Unsure 10/31/2021 2:34 PM SEED PELLETER documented as of this encounter Plan of Treatment Not on file documented as of this encounter Visit Diagnoses Not on filedocumented in this encounter Additional Health Concerns Assessment Noted Time PHQ-9 Depression Total Score: 0 08/05/20 21 3:00 PM CDT documented as of this encounter Care Teams Deputy Controller Relationship Specialty Start Date End Date Vladimir Luis MD [address] [place] [address] PCP - General Family Medicine 07/25/16 01/07/22 Nicho Posada MD [address] [place] [address] [address] [place] [address] PCP - General Family Medicine 01/08/22 Mark Mai DPM [address] [place] [address] Consulting Physician Podiatry 07/25/16 07/31/22 María Ochoa APRN, PHOTOGRAPH TINTER [address] [place] [address] Referring Provider Advanced Practice Nurse 05/01/21 Gregorio Garza DPM [address] [place] [address] [employer] [address] [place] [address] Consulting Physician Podiatry 07/03/22 documented as of this encounter
--- OUTSIDE RECORDS SUMMARY | 2024-12-20 07:53 | XMS_ITS | Encounter Summary ---
Author Organization [facility] Address [address] [place] [address] Phone Care Team Providers Care Playground Official Name Role Phone María Ochoa APRN, RECYCLING SORTER Unavailable [phone] Nicho Posada MD Primary Care Provider [phone] Gregorio Garza DPM Unavailable Unavailable Encounter Details Date Type Department Care Team (Late st Contact Info) Description 12/15/2022 Lab Requisition [facility] Laboratory Services [address] [place] [address] Raghavendra Kimble MD [address] [place] [address] Chronic kidney disease, unspecified Social History Tobacco Use Types Packs/Day Years Used Date Smoking Tobacco: Never Smokeless Tobacco: Never Alcohol Use Standard Drinks/Week Comments Yes 1 (1 standard drink = 0.6 oz pure alcohol) 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 No / Unsure 12/11/2022 11:16 AM PROSTHETIC DENTIST documented as of this encounter Plan of Treatment Not on file documented as of this encounter Procedures Procedure Name Priority Date/Time Associated Diagnosis Comments BASIC METABOLIC PANEL W/ CALCIUM TOTAL Routine 12/15/2022 10:35 AM PROSTHETIC DENTIST Chronic kidney disease, unspecified ALBUMIN Routine 12/15/2022 10:35 AM PROSTHETIC DENTIST Chronic kidney disease, unspecified ADJUSTED CALCIUM*[facility]C Routine 12/15/2022 10:35 AM PROSTHETIC DENTIST Chronic kidney disease, unspecified documented in this encounter Results * (ABNORMAL) ALBUMIN (12/15/2022 10:35 AM PROSTHETIC DENTIST) ALBUMIN 2.6(L) 3.4 - 4.8 g/dL 12/15/2022 1:58 PM PROSTHETIC DENTIST [facility] Blood Venipuncture / Unknown 12/15/2022 10:35 AM PROSTHETIC DENTIST 12/15/2022 12:10 PM PROSTHETIC DENTIST us Raghavendra Kimble MD CHEMISTRY ORDERABLES Final Resul t Performing Organization Address [facility] Co de Phone Number [address] [address] * ADJUSTED CALCIUM*[facility] (12/15/2022 10:35 AM PROSTHETIC DENTIST) ADJUSTED CALCIUM 9.5 8.8 - 10.0 mg/dL 12/15/2022 2:07 PM PROSTHETIC DENTIST [facility] Blood Venipuncture / Unknown 12/15/2022 10:35 AM PROSTHETIC DENTIST 12/15/2022 12:10 PM PROSTHETIC DENTIST us Raghavendra Kimble MD CHEMISTRY ORDERABLES Final Resul t Performing Organization Address City/[facility] Co de Phone Number [address] [address] * (ABNORMAL) BASIC METABOLIC PANEL W/ CALCIUM TOTAL (12/15/2022 10:35 AM PROSTHETIC DENTIST) SODIUM 136 133 - 145 mmol/L 12/15/2022 1:51 PM [facility] POTASSIUM 3.9 3.5 - 5.1 mmol/L 12/15/2022 1:51 PM [facility] CHLORIDE 104 96 - 108 mmol/L 12/15/2022 1:51 PM [facility] CO2, VENOUS 26 21 - 32 mmol/L 12/15/2022 1:51 PM [facility] ANION GAP 9.9(L) 10.0 - 20.0 mmol/L 12/15/2022 1:51 PM [facility] GLUCOSE 307(H) 83 - 110 mg/dL 12/15/2022 1:51 PM [facility] BUN 23(H) 6 - 19 mg/dL 12/15/2022 1:51 PM [facility] CREATININE, BLOOD 1.50(H) 0.50 - 1.30 mg/dL 12/15/2022 1:51 PM [facility] BUN/CREATININE RATIO 15 12 - 20 ratio 12/15/2022 1:51 PM [facility] CALCIUM 8.4(L) 8.8 - 10.0 mg/dL 12/15/2022 1:51 PM [facility] Comment:Calcium low. Correct ed calcium to follow. GFR, ESTIMATED 49 12/15/2022 1:51 PM [facility] Comment: This eGFR is calculated using [...] (CKD) is present Blood Venipuncture / Unknown 12/15/2022 10:35 AM PROSTHETIC DENTIST 12/15/2022 12:10 PM PROSTHETIC DENTIST us Raghavendra Kimble MD CHEMISTRY ORDERABLES Final Resul t [facility] [address] [place] [address] documented in this encounter Visit Diagnoses Diagnosis Chronic kidney disease, unspecified documented in this encounter Additional Health Concerns Assessment Noted Time PHQ-9 Depression Total Score: 0 08/05/20 21 3:00 PM CDT documented as of this encounter Care Teams Playground Official Relationship Specialty Start Date End Date Nicho Posada MD [id number] [place] [address] PCP - General Family Medicine 01/08/22 María Ochoa APRN, RECYCLING SORTER [address] [place] [address] Referring Provider Advanced Practice Nurse 05/01/21 Gregorio Garza DPM [id number] [place] [address] Consulting Physician Podiatry 07/03/22 documented as of this encounter
--- OUTSIDE RECORDS SUMMARY | 2024-12-20 07:53 | XMS_ITS | Encounter Summary ---
Author Organization [facility] Address [address] [place] [address] Phone Care Team Providers Care Resource Efficiency Manager Name Role Phone Mark Mai DPM Unavailable Unavailab María Haile RN ED, PLATFORM STAPLER Unavailable [phone] Nicho Posada MD Primary Care Provider [phone] Gregorio Garza DPM Unavailable Unavailable Reason for Visit * Reason Comments Medication Refill Encounter Details Date Type Department Care Team (Late st Contact Info) Description 02/21/2022 Refill [facility] [address] [place] [address] Brian Madsen MD [facility] [place] [address] Medication Refill Social History Tobacco Use Types Packs/Day Years Used Date Smoking Tobacco: Never Smokeless Tobacco: Never Alcohol Use Standard Drinks/Week Comments Yes 1 (1 standard drink = 0.6 oz pur e alcohol) Senior Information Security Consultant PHQ-2 Answer Date Recorded Total Score - Questions 1-9 0 01/14 Sexually Active Control Partners Comments Never Sex [...] suspected to have Coronavirus/COVID-19? No / Unsure 01/30/2022 4:06 PM CDT documented as of this encounter Plan of Treatment Not on file documented as of this encounter Visit Diagnoses Not on filedocumented in this encounter Additional Health Concerns Assessment Noted Time PHQ-9 Depression Total Score: 0 08/05/20 3:00 PM CDT documented as of this encounter Care Teams Resource Efficiency Manager Relationship Specialty Start Date End Date Nicho Posada MD [facility] [place] [address] PCP - General Family Medicine 01/08/22 Mark Mai DPM Consulting Physician Podiatry 07/25/16 07/31/22 María Ochoa, TYRA, PLATFORM STAPLER [address] [place] [address] Referring Provider Advanced Practice Nurse 05/01/21 Gregorio Garza DPM [facility] [place] [address] Consulting Physician Podiatry 07/03/22 documented as of this encounter
--- OUTSIDE RECORDS SUMMARY | 2024-12-20 07:53 | XMS_ITS | Encounter Summary ---
Author Organization [facility] Address [address] [place] [address] Phone Care Team Providers Care Bunch Trimmer Mold Name Role Phone María Ochoa APRN, CHAIRPERSON ANESTHESIOLOGY Unavailable [phone] Nicho Posada MD Primary Care Provider [phone] Gregorio Garza DPM Unavailable Unavailable Encounter Details Date Type Department Care Team (Late st Contact Info) Description 12/23/2022 Lab Requisition [facility] Laboratory Services [address] [place] [address] Raghavendra Kimble MD [address] [place] [address] Chronic kidney disease, unspecified Social History Tobacco Use Types Packs/Day Years Used Date Smoking Tobacco: Never Smokeless Tobacco: Never Alcohol Use Standard Drinks/Week Comments Yes 1 (1 standard drink = 0.6 oz pure alcohol) wine , 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 No / Unsure 12/11/2022 11:16 AM ARTIFICIAL BREEDING DISTRIBUTOR documented as of this encounter Plan of Treatment Not on file documented as of this encounter Procedures Procedure Name Priority Date/Time Associated Diagnosis Comments BASIC METABOLIC PANEL W/ CALCIUM TOTAL Routine 12/23/2022 7:25 AM ARTIFICIAL BREEDING DISTRIBUTOR Chronic kidney disease, unspecified documented in this encounter Results * (ABNORMAL) BASIC METABOLIC PANEL W/ CALCIUM TOTAL (12/23/2022 7:25 AM ARTIFICIAL BREEDING DISTRIBUTOR) SODIUM 139 133 - 145 mmol/L 12/23/2022 11:03 AM [facility] POTASSIUM 3.9 3.5 - 5.1 mmol/L 12/23/2022 11:03 AM [facility] CHLORIDE 103 96 - 108 mmol/L 12/23/2022 11:03 AM [facility] CO2, VENOUS 28 21 - 32 mmol/L 12/23/2022 11:03 AM [facility] ANION GAP 11.9 10.0 - 20.0 mmol/L 12/23/2022 11:03 AM [facility] GLUCOSE 188(H) 83 - 110 mg/dL 12/23/2022 11:03 AM [facility] BUN 23(H) 6 - 19 mg/dL 12/23/2022 11:03 AM [facility] CREATININE, BLOOD 1.50(H) 0.50 - 1.30 mg/dL 12/23/2022 11:03 AM [facility] BUN/CREATININE RATIO 15 12 - 20 ratio 12/23/2022 11:03 AM [facility] CALCIUM 8.8 8.8 - 10.0 mg/dL 12/23/2022 11:03 AM [facility] GFR, ESTIMATED 49 12/23/2022 11:03 AM [facility] Comment: This eGFR is calculated using 2020 [...] (CKD) is present Blood Venipuncture / Unknown 12/23/2022 7:25 AM ARTIFICIAL BREEDING DISTRIBUTOR 12/23/2022 8:21 AM ARTIFICIAL BREEDING DISTRIBUTOR us Raghavendra Kimble MD CHEMISTRY ORDERABLES Final Resul t [facility] [address] [place] [address] documented in this encounter Visit Diagnoses Diagnosis Chronic kidney disease, unspecified documented in this encounter Additional Health Concerns Assessment Noted Time PHQ-9 Depression Total Score: 0 08/05/20 3:00 PM CDT documented as of this encounter Care Teams Bunch Trimmer Mold Relationship Specialty Start Date End Date Nicho Posada MD [address] [place] [address] [address] [place] [address] PCP - General Family Medicine 01/08/22 María Ochoa APRN, CHAIRPERSON ANESTHESIOLOGY [address] [place] [address] Referring Provider Advanced Practice Nurse 05/01/21 Gregorio Garza DPM [address] [place] [address] [address] [place] [address] Consulting Physician Podiatry 07/03/22 documented as of this encounter
--- OUTSIDE RECORDS SUMMARY | 2024-12-20 07:53 | XMS_ITS | Clinical Summary ---
Author Organization [facility] Address [facility] [facility] [place] [address] [place] [address] Care Team Providers Care Corporate Associate Attorney Name Role Phone Puma Coronado MD Unavailable Edu Saavedra MD Unavailable Unavailab Alexis Deras MD Unavailable [phone] Familia Ford APRN Unavailable [phone] Nicho Posada MD Primary Care Provider [phone] Dhaval Dyer MD Unavailable Allergies No known active allergies Medications aspirin EC 81 MG EC tablet Take 1 tablet (81 mg total) by mouth daily. Active atorvastatin 20 MG tablet Take 1 tablet (20 mg total) by mouth daily. 1 12/14/19 18 Active nitroglycerin (NITROSTAT) 0.[address] 1 tablet (0.4 mg total) under the tongue every 5 (five) minutes as needed for Chest Pain. Active omeprazole (PRILOSEC) 40 MG capsule Take 1 capsule (40 mg total) by mouth daily. Active acetaminophen (TYLENOL) 325 MG tablet Take 2 tablets (650 mg total) by mouth every 6 (six) hours as needed for Pain. 60 tablet 10/23/20 22 Active Multiple Vitamins-Mine rals (MULTIVITAMIN ADULT EXTRA C OR) Take 1 tablet by mouth daily. Active dapagliflozin (FARXIGA) 10 MG Tab Take 10 mg by mouth daily. 30 tablet 11 11/24/19 23 Active amLODIPine (NORVASC) 5 MG tablet Take 1 tablet (5 mg total) by mouth daily. Active Continuous Blood Gluc Sensor (DEXCOM G6 SENSOR) Misc CHANGE SENSOR EVERY 10 DAYS 04/12/20 Active Continuous Blood Gluc Transmit (DEXCOM G6 TRANSMITTER) Misc CHANGE TRANSMITTER EVERY 3 MONTHS 03/02/20 Active B-D UF III MINI PEN NEEDLES 31G X 5 MM Misc 06/21/20 Active insulin degludec (TRESIBA FLEXTOUCH) 200 UNIT/ML injection (PEN) Inject 18 Units into the skin daily. 04/04/20 Active losartan (COZAAR) 100 MG tablet Take 1 tablet (100 mg total) by mouth daily. 08/27/20 Active LORazepam (ATIVAN) 2 MG tabletIndicat ions:Anxiety due to invasive procedure Take 1 tablet (2 mg total) by mouth once as needed for Other (take 15 minutes before MRI). 1 tablet 06/13/20 24 Active furosemide (LASIX) 40 MG tablet Take 0.5 tablets (20 mg total) by mouth daily. 12/16/19 25 Active vitamin C (ASCORBIC ACID) 500 MG Chew Tab chewable tablet Chew 1 tablet (500 mg total) by mouth daily. 025 Discontinued(Th erapy completed) FIASP FLEXTOUCH 100 UNIT/ML injection (PEN) ADMINISTER 40 UNITS UNDER THE SKIN TWICE DAILY 01/27/20 025 Discontinued( erapy completed) BD INSULIN SYRINGE U/F 31G X 5/16 1 ML Misc 2 (two) times daily. 01/29/20 025 Discontinued(Th erapy completed) furosemide (LASIX) 40 MG tablet Take 1 tablet by mouth daily. 12/08/19 23 025 Discontinued Insulin Aspart, w/Niacinamide , (FIASP FLEXTOUCH SC) Inject 15 Units into the skin 3 (three) times daily. 025 Discontinued( erapy completed) Active Problems Problem Noted Date Diagnosed Date AV block 12/07/2023 Pacemaker 10/27/2023 Sinus node dysfunction (CMS/HCC HHS/HCC) 023 Ankle fracture, right, closed, initial encounter 12/26/2022 Muscle weakness (generalized) 12/26/2022 Unsteadiness on feet 12/26/2022 Other fracture of right lowe r leg, subsequent encounter for closed fracture with routine healing 10/29/2022 Occlusion and stenosis of unspecified carotid ar lisa 10/29/2022 Hypertensive heart and chron ic kidney disease with heart failure and stage 1 through stage 4 chronic kidney disease, or chronic kidney disease ([facility]) 10/29/2022 Chronic diastolic congestive heart failure ([facility]) 10/29/2022 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 10/29/2022 Chronic venous hypertension (idiopathic) with ulcer of right lower extremity ([facility]) 10/29/2022 Syncope 10/16/2022 Carotid stenosis 04/24/2022 Vitamin D deficiency 07/16/2021 Microalbuminuria 07/16/2021 Diabetic nephropathy associa vinay with type 2 diabetes mellitus ([facility]) 05/28/2021 Bilateral leg edema 05/28/2021 PVC (premature ventricular contraction) 02/28/20 21 Syncope, unspecified syncope type 02/27/2021 Systolic murmur 01/17/2021 PVC (pulmonary venous congestion) 01/17/2021 Onychocryptosis 08/16/2020 Chest pain 07/11/2019 CKD (chronic kidney disease) stage 3, GFR 30-59 ml/min ([facility]) 07/11/2019 [place] or callus 10/14/2018 Type 2 diabetes mellitus wit h peripheral angiopathy ([facility]) 10/14/2018 Nuclear sclerotic cataract of left eye 8 Overview (10/25/2018): Overview: RIGHT CATARACT SURGERY NKDA DIABETIC Everett's esophagus without dysplasia 03/01/2018 Overview (10/14/2018): Description: 02/19/2018, Dr. Saavedra. Diabetic polyneuropathy asso ciated with type 2 diabetes mellitus ([facility]) 02/25/2018 Occult blood in stools 02/19/2018 Unintentional weight loss 02/19/2018 Family history of esophageal cancer 02/19/2018 Paronychia of great toe, right 10/15/2017 Skin ulceration ([facility]) 04/30/2017 Onychogryposis 08/21/2016 Stroke (CMS/HCC HHS/HCC) Pneumonia Obesity Iron deficiency anemia Hypertension Dyslipidemia Diabetes ([facility]/HCC HHS/HCC) Coronary artery disease Resolved Problems Problem Noted Date Diagnosed Date Resolved Date Hospital discharge follow-up 11/24/2022 12/01/2022 Encounter for screening colonoscopy 02/19/2018 07/27/2020 Encounter for preventive health examination 12/30/2017 07/27/2020 Right carotid bruit 10/27/20 23 Encounters Date Type Department Care Team Description 12/16/2024 2:00 PM MINE CAR DISPATCHER Office Visit [facility] [address] [place] [phone] Familia Ford, [employer] Follow Up (CAD, CS, SND (PPM), HTN, DLD) 12/16/2024 12:57 PM MINE CAR DISPATCHER - 12/16/2024 11:59 PM MINE CAR DISPATCHER Hospital Encounter [facility] [address] [place] [address] Familia Ford, [employer] Discharge Disposition: Home or Self Care (Routine Discharge) 12/16/2024 Travel 11/25/2024 1:30 PM MINE CAR DISPATCHER [facility] [address] [place] [address] Servando Kumar, DPM [place]/ Callous Removal; Hammer Toe 10/21/2024 10:45 AM MINE CAR DISPATCHER [facility] [address] [place] [address] Servando Kumar, DPM Hammer Toe; Foot Ulcer 10/19/2024 8:00 AM MINE CAR DISPATCHER Allied Health/Nurse Visit [facility] [address] [place] [phone] Dhaval Dyer MD 09/30/2024 1:30 PM MINE CAR DISPATCHER [facility] [address] [place] [address] Servando Kumar, DPM Foot Ulcer 09/30/2024 Telephone [facility] [address] [place] [phone] Familia Ford, [employer] Reschedule from Last 3 Months Immunizations Name Administration Dates Next Due Fluarix 09/11/2016 Influenza Adult (Generic) 08/09/2020,08/19/2019 MODERNA COVID-19 (12+) MRNA, LNP-S, PF, 100 MCG/ 0.5 ML DOSE 01/10/2021,12/10/2020 Pneumococcal (Pneumovax 23) 09/18/2017 Pneumococcal (Prevnar 13) 05/07/2015 Tdap (Adacel) 02/04/2019 Family History Medical History Relation Comments Cancer Brother Early Father Heart Attack Father Heart Disease Father Hypertension Father Cancer Mother ovarian Hypertension Mother Diabetes Paternal Grandmother Relation Status Comments Brother Father (Age 45) Mother (Age 92) Paternal Grandmother Social History Tobacco Use Types Packs/Day Years Used Date Smoking Tobacco: Never Smokeless Tobacco: Never Tobacco Cessation:Counseling Given: Not Answered Alcohol Use Standard Drinks/Week Comments No 0 (1 standard drink = 0.6 oz pur e alcohol) Sex and Gender Information Value Date Recorded Sex Assigned at Male 12/16/2024 1:31 PM MINE CAR DISPATCHER Legal Sex Male 9:51 PM CDT Gender Identity Male 02/24/2022 7:56 AM CDT Sexual Orientation Not on file Last Filed Vital Signs Vital Sign Reading Time Taken Comments Blood Pressure 132/84 12/16/2024 1:39 PM MINE CAR DISPATCHER Pulse 97 12/16/2024 1:39 PM MINE CAR DISPATCHER Temperature 36.4 ??C (97.5 ??F) 05/08/2023 6:12 AM CD T Respiratory Rate 16 12/16/2024 1:39 PM MINE CAR DISPATCHER Oxygen Saturation 95% 12/16/2024 1:39 PM MINE CAR DISPATCHER Inhaled Oxygen Concentration - - Weight 105.9 kg (233 lb 6.4 oz) 12/16/2024 1:39 PM MINE CAR DISPATCHER Height 181.6 cm (5' 11.5 ) 12/16/2024 1:39 PM CS T Body Mass Index 32.1 12/16/2024 1:39 PM MINE CAR DISPATCHER Plan of Treatment Upcoming Encounters Date Type Department Care Team (Late st Contact Info) Description 02/02/2025 3:30 AM CDT Allied Health/Nurse Visit [facility] [address] [place] [address] Dhaval Dyer MD [address] [place] [phone] 02/10/2025 11:15 AM CDT Office Visit [facility] [address] [place], [place] [address] Servando Kumar, DPM [address] [place] [address] Health Maintenance Due Date Last Done Comments ASCVD LDL 1950 ASCVD Statin 1950 EGD-Everett's Surveillance 1950 Kidney Health Evaluation 1950 Lipid Panel 1950 Diabetes: Retinopathy Eye Exam 1968 Hepatitis C 1968 Zoster Vaccines (1 of 2) 2000 RSV Immunization or 60+ Years (1 - Risk 60-74 years 1-dose series) 2010 Hemoglobin A1C 04/08/2022 10/09/2021 COVID-19 Vaccine ( season) 2024 09/03/2022, 10/22/2021, 01/10/2021, Additional history exists Influenza Adult (#1) 2024 08/09/2020, 08/19/2019, 09/11/2016 PHQ-2 (Physician Umbarger) 11/16/2024 Colorectal Cancer Screening Colonoscopy (10 Years) 02/20/2028 02/19/2018 DTaP, Tdap and Td Vaccines (2 - Td or Tdap) 02/04/2029 02/04/2019 Pneumococcal Vaccine: 65+ Years Completed 09/18/2017, 05/07/2015 Meningococcal B Vaccine Aged Out No l onger eligible based on patient's age to complete this topic Meningococcal Vaccine Aged Out No gisele kinza eligible based on patient's age to complete this topic RSV Immunizations Under 20 Months Aged Out No longer eligible based on patient's age to complete this topic Medical Devices Implanted Type Area Insurance Agent Device Identifier Shelf Expiration Date Model / Serial / Lot Medtronic His/Lbb- 023 Implanted:04/17 by Dhaval Dyer MD (Quantity not on file) Lead Implant [employer] 03/05/2025 [id number] / [id number] / Medtronic Ra-05/08/2023 Implanted:04/17 by Dhaval Dyer MD (Quantity not on file) Lead Implant [employer] 02/03/2025 [id number] / [id number] / Medtronic [address]-05/08/2023 Implanted:04/17 by Dhaval Dyer MD (Quantity not on file) Pacemaker [employer] 10/13/2024 [id number] / [id number] / Description:DX:SND Procedures Procedure Name Priority Date/Time Associated Diagnosis Comments USV CAROTID DUPLEX VEE Routine 12/16/2024 1:27 PM MINE CAR DISPATCHER Bilateral carotid artery stenosis COLONOSCOPY Routine 02/19/2018 12:00 AM CDT from Last 3 Months or Most Recently Relevant to Health Maintenance Results * USV CAROTID DUPLEX VEE (12/16/2024 1:27 PM MINE CAR DISPATCHER) Anatomical Region Laterality Modality Neck Ultrasound 12/16/2024 1:01 PM MINE CAR DISPATCHER Narrative 12/16/2024 2:29 PM MINE CAR DISPATCHER ?SJS ?Vascular Report Pat.Name: ??ANCA HUGHES ? Pat.ID: ?[id number] ? St.Date: ?? 12/16/2024 ? Refer.: ??FAMILIA FORD ? Exam Time: 1:01:00 PM ? Study Type:PVI CAROTID SCAN - BILATERAL Height: ?72 in ?Age: ??1950,74Y ? Sex: ? M ? Sonogrphr: Tanvir Krishnan, RVS ? Pat. Stat.:Outpatient ? ICD - 9: ?? I65.23 Carotid occlusion/Stenosis bilateral CPT - 4: ?30801 Carotid Duplex ?? Reason for Study:Carotid Stenosis ?? Race: ?W ? ++++++++++++++++++++++++++++++++++++ FINDINGS: ++++++++++++++++++++++++++++++++++++ Rt Innom: The innominate artery is patent. Rt Subcl: The proximal subclavian artery is patent. Rt ICA: ?? 40-59% stenosis noted in the internal carotid artery. ?Mild/moderate heterogeneous plaque noted. Rt ECA: ?? Patent with antegrade flow noted in the external carotid ?artery. Rt Vert: ??Normal antegrade vertebral flow. Lt Subcl: The proximal subclavian artery is patent. Lt ICA: ?? 0-39% stenosis with plaque noted in the internal carotid ?artery. Mild heterogeneous plaque noted. Lt ECA: ?? Patent with antegrade flow noted in the external carotid ?artery. Lt Vert: ??Normal antegrade vertebral flow. Carotid Findings: ?Right ?Left ? Verteb.Flw ? Antegrade ?Antegrade ? ++++++++++++++++++++++++++++++++++++ MEASUREMENTS: ++++++++++++++++++++++++++++++++++++ ?DOPPLER Right CCA Prox ?? Prox CCA PSV ?79.4 cm/s ?Prox CCA EDV ?29.4 cm/s Right Innominate ?? Innominate PSV ?? 151 cm/s ?Innominate EDV ??25.2 cm/s Right CCA Mid ?? Mid CCA PSV ? 71.5 cm/s ?Mid CCA EDV ? 22.5 cm/s Right CCA Dist ?? Dist CCA PSV ?65.6 cm/s ?Dist CCA EDV ?24.5 cm/s Right ICA Prox ?? Prox ICA PSV ? 110 cm/s ?Prox ICA EDV ?48.2 cm/s Right ICA Mid ?? Mid ICA PSV ? 95.5 cm/s ?Mid ICA EDV ? 38.9 cm/s Right ICA Dist ?? Dist ICA PSV ?75.3 cm/s ?Dist ICA EDV ?30.2 cm/s Right ECA Prox ?? Prox ECA PSV ?98.2 cm/s ?Prox ECA EDV ?22.5 cm/s Right Vertebral ?? Vertebral PSV ?? 45.7 cm/s ?Vertebral EDV ? 19 cm/s Right Prox SCA ?? Prox SCA PSV ? 210 cm/s ?Prox SCA PSV ? 210 cm/s Prox SCA EDV ?33.2 cm/s ?Prox SCA EDV ?33.2 cm/s Right ICA/CCA RATIO ?? ICA/CCA RATIO P ??1.68 ? Left CCA Prox ?? Prox CCA PSV ?98.9 cm/s ?Prox CCA EDV ?21.1 cm/s Left CCA Mid ?? Mid CCA PSV ? 74.7 cm/s ?Mid CCA EDV ? 15.4 cm/s Left CCA Dist ?? Dist CCA PSV ?55.2 cm/s ?Dist CCA EDV ?13.6 cm/s Left ICA Prox ?? Prox ICA PSV ?33.4 cm/s ?Prox ICA EDV ?14.4 cm/s Left ICA Mid ?? Mid ICA PSV ? 34.7 cm/s ?Mid ICA EDV ? 14.8 cm/s Left ICA Dist ?? Dist ICA PSV ?34.7 cm/s ?Dist ICA EDV ?14.8 cm/s Left ECA Prox ?? Prox ECA PSV ? 129 cm/s ?Prox ECA EDV ?22.7 cm/s Left Vertebral ?? Vertebral PSV ?? 57.5 cm/s ?Vertebral EDV ?? 23.7 cm/s Left Prox SCA ?? Prox SCA PSV ? 124 cm/s ?Prox SCA PSV ? 124 cm/s Left ICA/CCA RATIO ?? ICA/CCA RATIO P 0.629 ? <Electronic Signature> 12/16/2024 02:29 PM Maxwell Lezama M.D. Procedure Note Maxwell Lezama MD - 12/16/2024 S Vascular Report Pat.Name: ANCA HUGHES Pat.ID: [id number] .Date: 12/16/2024 Refer.MD: FAMILIA FORD Exam Time: 1:01:00 PM Study Type:PVI CAROTID SCAN - BILATERAL Height: 72 in Age: 4 1950,74Y Sex: M Sonogrphr: SUKHWINDER Wade Pat. Stat.:Outpatient ICD - 9: I65.23 Carotid occlusion/Stenosis bilateral CPT - 4: 03016 Carotid Duplex Reason for Study:Carotid Stenosis Race: W ++++++++++++++++++++++++++++++++++++ FINDINGS: ++++++++++++++++++++++++++++++++++++ Rt Innom: The innominate artery is patent. Rt Subcl: The proximal subclavian artery is patent. Rt ICA: 40-59% stenosis noted in the internal carotid artery. Mild/moderate heterogeneous plaque noted. Rt ECA: Patent with antegrade flow noted in the external carotid artery. Rt Vert: Normal antegrade vertebral flow. Lt Subcl: The proximal subclavian artery is patent. Lt ICA: 0-39% stenosis with plaque noted in the internal carotid artery. Mild heterogeneous plaque noted. Lt ECA: Patent with antegrade flow noted in the external carotid artery. Lt Vert: Normal antegrade vertebral flow. Carotid Findings: Right Left Verteb.Flw Antegrade Antegrade ++++++++++++++++++++++++++++++++++++ MEASUREMENTS: ++++++++++++++++++++++++++++++++++++ DOPPLER Right CCA Prox Prox CCA PSV 79.4 cm/s Prox CCA EDV 29.4 cm/s Right Innominate Innominate PSV 151 cm/s Innominate EDV 25.2 cm/s Right CCA Mid Mid CCA PSV 71.5 cm/s Mid CCA EDV 22.5 cm/s Right CCA Dist Dist CCA PSV 65.6 cm/s Dist CCA EDV 24.5 cm/s Right ICA Prox Prox ICA PSV 110 cm/s Prox ICA EDV 48.2 cm/s Right ICA Mid Mid ICA PSV 95.5 cm/s Mid ICA EDV 38.9 cm/s Right ICA Dist Dist ICA PSV 75.3 cm/s Dist ICA EDV 30.2 cm/s Right ECA Prox Prox ECA PSV 98.2 cm/s Prox ECA EDV 22.5 cm/s Right Vertebral Vertebral PSV 45.7 cm/s Vertebral EDV 19 cm/s Right Prox SCA Prox SCA PSV 210 cm/s Prox SCA PSV 210 cm/s Prox SCA EDV 33.2 cm/s Prox SCA EDV 33.2 cm/s Right ICA/CCA RATIO ICA/CCA RATIO P 1.68 Left CCA Prox Prox CCA PSV 98.9 cm/s Prox CCA EDV 21.1 cm/s Left CCA Mid Mid CCA PSV 74.7 cm/s Mid CCA EDV 15.4 cm/s Left CCA Dist Dist CCA PSV 55.2 cm/s Dist CCA EDV 13.6 cm/s Left ICA Prox Prox ICA PSV 33.4 cm/s Prox ICA EDV 14.4 cm/s Left ICA Mid Mid ICA PSV 34.7 cm/s Mid ICA EDV 14.8 cm/s Left ICA Dist Dist ICA PSV 34.7 cm/s Dist ICA EDV 14.8 cm/s Left ECA Prox Prox ECA PSV 129 cm/s Prox ECA EDV 22.7 cm/s Left Vertebral Vertebral PSV 57.5 cm/s Vertebral EDV 23.7 cm/s Left Prox SCA Prox SCA PSV 124 cm/s Prox SCA PSV 124 cm/s Left ICA/CCA RATIO ICA/CCA RATIO P 0.629 <Electronic Signature> 12/16/2024 02:29 PM Maxwell Lezama M.D. us Familia N Liliana [employer] US VASC Final R esult * Colonoscopy (02/19/2018 12:00 AM CDT) 02/19/2018 02/19/2018 Narrative [facility] TO EPIC CONVERSION - 02/19/2018 12:00 AM CDT Documented hx of procedure Procedure Note , Generic Conversion, - 09/19/2018 Documented hx of procedure us Generic Conversion Md [facility] GI PROCEDURE ORDERABLES Final Result [facility] TO EPIC CONVERSION from Last 3 Months or Most Recently Relevant to Health Maintenance Insurance Advance Directives Documents on File Type Date Recorded Patient Staff Physical Therapist Expl anation Advance Directive (Activated) 12/09/2022 3:17 PM POLST Advance Directives and Livin g Will 11/13/2022 12:18 PM POLST Advance Directive (Activated) 10/28/2022 9:57 AM POLST * Full Code (Latest Code Status on File) Date Activated Date Inactivated Comments 10/29/2022 10:23 AM 05/08/2023 5:34 AM * Full Code Date Activated Date Inactivated Comments 10/16/2022 4:00 PM 10/24/2022 12:19 AM Care Teams Corporate Associate Attorney Relationship Specialty Start Date End Date Nicho Posada MD [address] [place] [address] PCP - General FAMILY PRACTICE 02/21/22 Puma Coronado MD [address] [place] [address] Mikael Accounting Professional CARDIOVASCULAR DISEASE 01/28/18 Edu Saavedra MD [address] [place] [address] Consulting Physician SURGERY 01/28/18 Alexis Bush MD [address] [place] [id number] Consulting Physician INTERVENTIONAL CARDIOLOGY 01/09/21 Familia Ford APRN [address] [facility] [address] [place] [phone] Nurse Practitioner NURSE PRACTITIONER 01/09/21 Dhaval Dyer MD [address] [place] [phone] Consulting Physician CLINICAL CARDIAC ELECTROPHYSIOLOGY 05/08/23
--- NOTE | 2025-01-16 09:01 | WPDSLEEPSTUD ---
Sleep Study Date of Study: 12/20/24 Ordering Provider: Nicho Posada MD Interpreting Physician: Yun Brito DO Sleep Study Type: Split Polysomnogram Height: 1.83 m Weight: 102.058 kg Body Mass Index: 30.5 Neck Circumference (inches): 17 [place]: 3 Reason for Sleep Study Current CPAP machine needs to be replaced due to age. Needs a new study to qualify for new equipment. Sleep History The patient is a 74-year-old male that had a sleep study ordered by his primary care physician to requalify for new equipment. The patient rarely awakens from sleep short of breath. He denies awakening at night with heartburn, belching or cough. He occasionally snores and is frequently loud enough that others complain. He occasionally has trouble sleeping when he has a cold. He frequently wakes up gasping for air throughout the night. He frequently has breathing problems at night observed by himself or others. He occasionally sweats excessively at night. He occasionally has heart palpitations or irregular heartbeats during the night. He frequently falls asleep during the day and occasionally falls asleep while driving. He denies cataplexy. He occasionally has trouble at school or work due to sleepiness. He rarely feels unable to move while waking up or falling asleep. He occasionally experiences vivid dreamlike scenes upon awakening or falling asleep. He denies feeling afraid of going to sleep. He denies having nightmares. He rarely remembers his dreams. He occasionally has thoughts racing through his mind. He denies feeling sad or depressed. He rarely has anxiety. He rarely has muscular tension. He rarely notices parts of his body jerk. He rarely kicks during the night. He rarely has crawling and aching feelings in his legs but occasionally has leg pain during the night. He occasionally grinds his teeth during sleep but never awakens with morning jaw pain. He is rarely bothered by pain during the day and rarely awakened by pain during the night. He rarely wakes up feeling stiff in the morning. He rarely wakes up with sore or achy muscles. He rarely wakes up with pain in the neck, spine or other joints. He goes to bed at 11:00 p.m. on weekdays and at 10:00 p.m. on the weekends. It takes him 1 hour to fall asleep. He wakes up twice throughout the night to urinate is able to fall back asleep within 20-30 minutes. He wakes up at 7:00 a.m. on weekdays and at 6:00 a.m. on the weekends. He typically gets 7 8 hours of sleep per night. He will stay in bed for 20 minutes after waking up in the morning. He currently lives alone. He denies consuming any caffeinated beverages within 2 hours of bedtime. He denies engaging in physical exercise before bedtime. He denies reading and watching television before falling asleep. He denies taking naps in the afternoon or the evening. He will occasionally have a caffeinated iced tea during the day. He will occasionally have an alcoholic beverage but not on a daily basis. He denies tobacco and recreational drug use. FORMERLY [facility], [facility] Past Medical History Medical History Atrial fibrillation Fracture, ankle Syncope and collapse Diabetes mellitus type 2, uncontrolled Diabetic neuropathy Hx of essential hypertension Hx of gastroesophageal reflux (GERD) Hx of diabetes mellitus History of anemia Family History Family History Father Heart problem Grandparent Diabetes mellitus Grandparent Diabetes mellitus Social History Social History Social History: Caffeine-occasionally Smoking status: Never smoker Alcohol intake: current Alcohol use details: SIP OF WINE AT MASS DAILY Substance use: never Lack of Transportation: No Lack of Food: Never True Current Housing: I Have Housing Concerned About Future Housing: No Difficulty Paying Gas/Electric Bills: No Difficulty Paying for Meds: No Currently Unemployed: No Education: Master's Degree or Higher Difficulty w/ Childcare or Family Care: No Living arrangements: alone Occupation/Education: occupation Additional occupation/education comments: [employer] Gender identity (if verbalized by the patient): Male Medications Home Medications ?Medication ?Instructions ?Recorded ?Confirmed ?Type aspirin 81 mg tablet,delayed 81 mg PO DAILY 12/26/21 10/10/24 History release blood-glucose meter,continuous 12/26/21 10/10/24 History (Dexcom G6 [employer] Brm Developer) insulin syringe-needle U-100 1 mL 12/26/21 10/10/24 History 29 gauge x 1/2 (BD Insulin Syringe) insulin syringe-needle U-100 1 mL #500 ea 05/08/23 10/10/24 Rx 31 gauge x 5/16 (BD Insulin Syringe Ultra-Fine) semaglutide 2 mg/dose (8 mg/3 mL) See Rx Instructions .Route 08/11/23 10/10/24 Rx subcutaneous pen injector (Ozempic) .COMPLEX #3 mL semaglutide 1 mg/dose (4 mg/3 mL) 2 mg (1.5 mL) subcut WEEKLY #18 mL 11/13/23 10/10/24 Rx subcutaneous pen injector (Ozempic) blood-glucose transmitter (Dexcom #1 ea 01/22/24 10/10/24 Rx G6 Transmitter device) pen needle, diabetic 31 gauge x #1,600 ea 02/11/24 10/10/24 Rx 5/16 (BD Ultra-Fine Short Pen Needle) nitroglycerin 0.4 mg sublingual 0.4 mg sublingual Q5M PRN chest 07/04/24 10/10/24 Rx tablet pain #25 tabs insulin lispro 200 unit/mL (3 mL) 40 unit (0.2 mL) subcut BID #18 mL 10/06/24 10/10/24 Rx subcutaneous pen (Humalog KwikPen U-200 Insulin) furosemide 20 mg tablet mg PO 10/10/24 10/10/24 History insulin degludec 200 unit/mL (3 30 unit (0.15 mL) subcut QHS #27 mL 10/10/24 10/10/24 Rx mL) subcutaneous pen (Tresiba FlexTouch U-200 insulin) losartan 100 mg tablet mg PO 10/10/24 10/10/24 History atorvastatin 20 mg tablet See Rx Instructions .Route 12/26/24 Rx .COMPLEX #90 tabs blood-glucose sensor (Dexcom G6 #9 ea 12/26/24 Rx Sensor device) dapagliflozin propanediol 10 mg See Rx Instructions .Route 12/26/24 Rx tablet (Farxiga) .COMPLEX #90 tabs omeprazole 40 mg capsule,delayed See Rx Instructions .Route 12/26/24 Rx release .COMPLEX #90 caps Sleep Procedure A full night split study using the Comeet SleepSoftLayer multi-channel system recorded the standard physiologic parameters including EEG, EOG, submentalis EMG, anterior tibialis EMG, EKG, body position, nasal and oral airflow using nasal pressure sensor and thermistor.? Respiratory parameters of chest and abdominal movements were recorded with Respiratory Inductance Plethysmography belts. Oxygen saturation was recorded by pulse oximetry. Video monitoring was also performed. Sleep stages, periodic limb movements, and EEG arousals were scored in 30 second epochs according to the criteria of the AASM Scoring Manual. The Apnea-Hypopnea Index was calculated using [facility] guidelines for definition of hypopnea with 4% O2 desaturations while scoring respiratory events. Sleep Architecture During the diagnostic portion of the study, the total recording time was 195.8 minutes. The total sleep time was 131.0 minutes. Sleep latency was 19.3 minutes.? REM latency was 84.5 minutes. Sleep Efficiency was 66.9%. The patient had 26 awakenings for an awakening index of 11.9. Wake after sleep onset time was 45.5 minutes. The patient spent 13.5 minutes, 10.3% of total sleep time in Stage N1. The patient spent 59.5 minutes, 45.4% in Stage N2. The patient spent 48.5 minutes, 37.0% in Stage N3. The patient spent 9.5 minutes, 7.3% in Stage REM sleep. At 01:25:37 AM the patient was placed on PAP treatment and was titrated at pressures ranging from 5 cm H20 up to 14 cm H20. During the treatment portion of the study, the total recording time was 341.7 minutes.? The total sleep time was 210.0 minutes. Sleep latency was 50.0 minutes. REM latency was 52.0 minutes. Sleep Efficiency was 61.5%. Wake after Sleep Onset time was 82.0 minutes. The patient spent 25.5 minutes, 12.1% of total sleep time in Stage N1. The patient spent 96.0 minutes, 45.7% in Stage N2. The patient spent 13.5 minutes, 6.4% in Stage N3. The patient spent 75.0 minutes, 35.7% in Stage REM. Respiratory Analysis During the diagnostic portion of the study, the patient had 49 hypopneas, 13 obstructive apneas and 1 central apnea for an overall Apnea Hypopnea Index of 28.9 events per hour. The REM Apnea Hypopnea Index was 82.1. The NREM Apnea Hypopnea Index was 25.2. The patient had a Central Apnea Hypopnea Index of 0.5. There was no evidence of Hernandez-Stevenson Respirations. During the treatment portion of the study, the patient had 12 hypopneas, 25 obstructive apneas and 2 mixed apneas for an overall Apnea Hypopnea Index of 11.1 events per hour. The REM Apnea Hypopnea Index was 15.2. The NREM Apnea Hypopnea Index was 8.9. The patient had a Central Apnea Hypopnea Index of 0. There was no evidence of Hernandez-Stevenson Respirations. The patient was started on CPAP 5 cm H2O and titrated to CPAP 14 cm H2O due to obstructive apneas and hypopneas. The patient was able to fall asleep starting on CPAP 7 cm H2O. The patient was able to achieve REM sleep starting on CPAP 8 cm H2O. The lowest residual AHI the patient was able to achieve was 7.3 on the final pressure setting. On CPAP 14 cm H2O, the patient spent 39.5 minutes in NREM and 18 minutes in REM with 7 hypopneas, resulting in an AHI of 7.3. The patient had a sleep efficiency of 72.8% on this pressure setting. The hypopneas that were scored while the patient was on CPAP 14 cm H2O were not associated with an oxygen desaturation. Arousals During the diagnostic portion of the study, there were a total of 79 arousals for an arousal index of 36.2.? There were 72 respiratory arousals for an index of 33.0. There were 0 periodic limb movement arousals for an index of 0.? There were 4 isolated limb movement arousals for an index of 1.8. There were 5 spontaneous arousals for an index of 2.3. During the treatment portion of the study, there were a total of 96 arousals for an index of 27.4.? There were 56 respiratory arousals for an index of 16.0. There were 16 periodic limb movement arousals for an index of 4.6.? There were 14 isolated limb movement arousals for an index of 4.0. There were 10 spontaneous arousals for an index of 2.9. Periodic Limb Movements During the diagnostic portion of the study, the patient had 31 isolated limb movements with an index of 14.2. The patient had 29 periodic limb movements with an index of 13.3. The patient had a total of 60 limb movements with a total limb movement index of 27.5. During the treatment portion of the study, the patient had 39 isolated limb movements with an index of 11.1. The patient had 129 periodic limb movements with an index of 36.9, which is elevated (normal < 15). The patient had a total of 168 limb movements with a total limb movement index of 48.0. Oximetry Data During the diagnostic portion of the study, the patient had an average oxygen saturation of 93.2% in wake with a minimum oxygen saturation of 81% and a maximum oxygen saturation of 98%. The patient had an average oxygen saturation of 91.6% in sleep with a minimum oxygen saturation of 78.0% and a maximum oxygen saturation of 97.0%. The patient had 73 oxygen desaturations resulting in an Oxygen Desaturation Index of 33.4. The patient spent 14.1 minutes, 7.5% of total sleep time with an oxygen saturation less than 88%. During the treatment portion of the study, the patient had an average oxygen saturation of 94.5% in wake with a minimum oxygen saturation of 87.0% and a maximum oxygen saturation of 98.0%. The patient had an average oxygen saturation of 94.4% in sleep with a minimum oxygen saturation of 77.0% and a maximum oxygen saturation of 98.0%. The patient had 39 oxygen desaturations resulting in an Oxygen Desaturation Index of 11.1. The patient spent 3 minutes, 0.9% of total sleep time with an oxygen saturation less than 88%. Snoring Profile Mild snoring was present during the baseline portion of the study. The snoring resolved once the patient was titrated to CPAP 8 cm H2O. Cardiac Profile The EKG lead showed a paced rhythm with occasional PVCs. During the diagnostic portion of the study, the average pulse rate was 61.6 bpm.? The minimum pulse rate was 56.0 bpm. The maximum pulse rate was 86.0 bpm. During the treatment portion of the study, the average pulse rate was 62.5 bpm.? The minimum pulse rate was 57.0 bpm. The maximum pulse rate was 90.0 bpm. EEG Profile No signs of seizure activity seen. Assessment and Plan Assessment and Plan (1) Obstructive sleep apnea: Code(s): G47.33 - Obstructive sleep apnea (adult) (pediatric) Status: Acute Assessment and Plan: During the baseline portion of the study, the patient had an overall AHI of 28.9 with desaturation down to 78%. This is consistent with moderate sleep apnea. The patient was started on 5 cm H20 and titrated up to 14 cm H20 due to obstructive apneas and hypopneas. I recommend that the patient be prescribed Resmed CPAP 14 cm H2O, size medium F&P Simplus FFM, CPAP filters/tubing and heated humidity. This should be used with all episodes of sleep.? Compliance should be reviewed within 31-90 days of starting therapy for usage greater than 4 hours per night greater than 70% of the nights. The patient should be asked about symptoms such as?excessive daytime sleepiness, quality of sleep, decreased nocturia, increased?mental functioning such as memory, mood, and concentration. Data The data obtained during this sleep study is adequate for interpretation. Certification This sleep study has been reviewed by a board certified sleep medicine physician.
[2025-01-16 10:58] VITALS: BMI 30.5
== END 2024-12-21 07:43 | disposition home or self-care (01) ==
LOC: ANHCSM 07:49
PROVIDERS: PCP Family Medicine; Visit Provider Family Medicine
DX: G47.33 Obstructive sleep apnea (adult) (pediatric) (principal)
CPT/HCPCS: 95811

== ENCOUNTER 2025-01-04 14:07 | Outpatient (CLI) | payer BC, SELFPAY ==
--- OUTSIDE RECORDS SUMMARY | 2025-01-04 14:10 | XMS_ITS | Encounter Summary ---
Author Organization [facility] Address [address] [place] [address] Phone Care Team Providers Care Statistical Reporting Analyst Name Role Phone María Ochoa APRN, PROPERTY ANALYST Unavailable [phone] Nicho Posada MD Primary Care Provider [phone] Gregorio Garza DPM Unavailable Unavailable Encounter Details Date Type Department Care Team (Late st Contact Info) Description 10/31/2022 Lab Requisition [facility] Laboratory Services [address] [place] [address] Brian Madsen MD [address] [place] [address] Chronic kidney disease, stage 3 unspecified (HCC) Social History Tobacco Use Types Packs/Day Years Used Date Smoking Tobacco: Never Smokeless Tobacco: Never Alcohol Use Standard Drinks/Week Comments Yes 1 (1 standard drink = 0.6 oz pure alcohol) 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 No / Unsure 10/29/2022 10:33 AM NURSE WOUND CARE documented as of this encounter Plan of Treatment Not on file documented as of this encounter Procedures Procedure Name Priority Date/Time Associated Diagnosis Comments URINALYSIS MICROSCOPIC IF INDICATED Routine 10/31/2022 9:00 PM NURSE WOUND CARE UR PROTEIN/CREATININE RATIO Routine 10/31/2022 9:00 PM NURSE WOUND CARE UR MICROALBUMIN/CREATIN INE RATIO RANDOM Routine 10/31/2022 9:00 PM NURSE WOUND CARE documented in this encounter Results * (ABNORMAL) URINALYSIS MICROSCOPIC IF INDICATED (10/31/2022 9:00 PM NURSE WOUND CARE) SPECIFIC GRAVITY 1.016 1.003 - 1.035 11/01/2022 7:47 AM [facility] URINE PH 5.5 5.0 - 8.0 11/01/2022 7:47 AM [facility] WBC ESTERASE Negative Negative 11/01/2022 7:47 AM [facility] NITRITE Negative Negative 11/01/2022 7:47 AM [facility] PROTEIN, RANDOM URINE 1+(A) Negative 11/01/2022 7:47 AM [facility] URINE GLUCOSE, QUAL 3+(A) Negative 11/01/2022 7:47 AM [facility] URINE KETONES Negative Negative 11/01/2022 7:47 AM [facility] UROBILINOGEN <2.0 <2.0 mg/dL 11/01/2022 7:47 AM [facility] URINE BILIRUBIN Negative Negative 7:47 AM [facility] URINE BLOOD Negative Negative jamie/ul 11/01/2022 7:47 AM [facility] URINALYSIS COLOR Yellow Yellow 11/01/20 7:47 AM [facility] URINALYSIS CLARITY Clear Clear 11/01/2022 7:47 AM [facility] WBC (Urine) 0-5 0-5, Negative /hpf 11/01/2022 7:47 AM [facility] URINE RBC'S 0-5 0-5, Negative, None /hpf 11/01/2022 7:47 AM [facility] URINE MUCOUS Rare None, Rare, Few 11/01/2022 7:47 AM [facility] DMH RENAL EPI CELLS 11/01/2022 7:47 AM [facility] URINE SPERM 11/01/2022 7:47 AM [facility] URINE TRICHOMONAS 11/01/2022 7:47 AM [facility] URINE YEAST 11/01/2022 7:47 AM [facility] Urine Non-Phlebotomy Collection / Unknown 10/31/2022 9:00 PM NURSE WOUND CARE 10/31/2022 11:40 PM NURSE WOUND CARE us Brian Madsen MD URINE ORDERABLES Edited Re sult - Final Performing Organization Address City/[facility]/ZIP Co de Phone Number [place] [phone] * (ABNORMAL) UR MICROALBUMIN/CREATININE RATIO RANDOM (10/31/2022 9:00 PM NURSE WOUND CARE) CREATININE URINE 119.0 >=0.0 mg/dL 11/01/2022 12:15 AM [facility] ALB/CREAT RATIO 256(H) 0 - 29 mg/g CRE 11/01/2022 12:15 AM [facility] Comment: Per ADA recommendations: Microalbumin/Creatinine Ratio <30 = normal, 30-300 = microalbuminuria, >300 = clinical albuminuria. Classification is based on at least 2 of 3 abnormal results within 3-6 months. [facility] MALB RANDOM UR 305.0 mg/L 11/01/2022 12:15 AM [facility] Urine Non-Phlebotomy Collection / Unknown 10/31/2022 9:00 PM NURSE WOUND CARE 10/31/2022 11:39 PM NURSE WOUND CARE us Brian Madsen MD URINE ORDERABLES Final Res ult Performing Organization Address City/[facility]/ZIP Co de Phone Number [facility] [address] [place] [address] * (ABNORMAL) UR PROTEIN/CREATININE RATIO (10/31/2022 9:00 PM NURSE WOUND CARE) UR PROTEIN RAND, QT 88.1(H) 0.0 - 14.0 mg/dL 11/01/2022 12:51 AM NURSE WOUND CARE [facility] URINE CREATININE 119.0 mg/dL 11/01/2022 12:51 AM NURSE WOUND CARE [facility] URINE PROTEIN/CREATIN INE RATIO 0.74 11/01/2022 12:51 AM NURSE WOUND CARE [facility] Comment: Ratio calculation: Protein(mg/dl)/Creatinine(mg/dl). No reference range available. Urine Non-Phlebotomy Collection / Unknown 10/31/2022 9:00 PM NURSE WOUND CARE 10/31/2022 11:39 PM NURSE WOUND CARE us Brian Madsen MD URINE ORDERABLES Final Res ult [facility] [address] [place], [place] [id number] documented in this encounter Visit Diagnoses Diagnosis Chronic kidney disease, stage 3 unspecified (HCC) documented in this encounter Additional Health Concerns Assessment Noted Time PHQ-9 Depression Total Score: 0 08/05/20 21 3:00 PM CDT documented as of this encounter Care Teams Statistical Reporting Analyst Relationship Specialty Start Date End Date Nicho Posada MD [address] [place] [address] [address] [place] [address] PCP - General Family Medicine 01/08/22 María Ochoa APRN, PROPERTY ANALYST [address] [place] [address] Referring Provider Advanced Practice Nurse 05/01/21 Gregorio Garza DPM [address] [place] [address] [address] [place] [address] Consulting Physician Podiatry 07/03/22 documented as of this encounter
--- OUTSIDE RECORDS SUMMARY | 2025-01-04 14:10 | XMS_ITS | Encounter Summary ---
Author Organization [facility] Address [facility] [place] [address] Care Team Providers Care Pit Recorder Name Role Phone Puma Coronado MD Unavailable Edu Saavedra MD Unavailable Unavailab Alexis Deras MD Unavailable [phone] Familia Ford APRN Unavailable [phone] Nicho Posada MD Primary Care Provider + [phone] Dhaval Dyer MD Unavailable Encounter Details Date Type Department Care Team (Late st Contact Info) Description 05/04/2023 Hospital Orders Only Heather's Producer Arborist Manager Pre/Post [address] [place] [address] Dhaval Dyer MD [address] [place] [address] Social History Tobacco Use Types Packs/Day Years Used Date Smoking Tobacco: Never Smokeless Tobacco: Never Alcohol Use Standard Drinks/Week Comments No 0 (1 standard drink = 0.6 oz pur e alcohol) Sex and Gender Information Value Date Recorded Sex Assigned at Male 12/16/2024 1:31 PM RV DETAILER Legal Sex Male 9:51 PM CDT Gender [...] Assessment Author Status No 10/17/2022 12:00 AM RV DETAILER Acti ve * RETIRED Are you blind or do you have serious difficulty seeing, even when wearing glasses? Answer Date of Assessment Author Status No 10/17/2022 12:00 AM RV DETAILER Acti ve * Do you have serious [...] 02/02/2025 3:30 AM CDT [facility] [address] [place] [address] Dhaval Dyer MD [address] [place] [address] 02/10/2025 11:15 AM CDT Office Visit [facility] [address] [place] [address] Servando Kumar, DPJohn [address] [place] [id number] documented as of this encounter Visit Diagnoses Not on filedocumented in this encounter Care Teams Pit Recorder Relationship Specialty Start Date End Date Nicho Posada MD [address] [id number] PCP - General FAMILY PRACTICE 02/21/22 Puma Coronado MD [address] [place] [address] Mikael Cash Register Servicer CARDIOVASCULAR DISEASE 01/28/18 Edu Saavedra MD [address] [place] [address] Consulting Physician SURGERY 01/28/18 Alexis Bush MD [address] [place] [address] Consulting Physician INTERVENTIONAL CARDIOLOGY 01/09/21 Familia Ford APRN [address] [address] Nurse Practitioner NURSE PRACTITIONER 01/09/21 Dhaval Dyer MD [address] [place] [address] Consulting Physician CLINICAL CARDIAC ELECTROPHYSIOLOGY 05/08/23 documented as of this encounter
--- OUTSIDE RECORDS SUMMARY | 2025-01-04 14:10 | XMS_ITS | Encounter Summary ---
Author Organization [facility] Address [address] [place] [address] Phone Care Team Providers Care Dermatologist Managing Partner Name Role Phone Vladimir Luis MD Primary Care Provider [phone] Mark Mai DPM Unavailable Unavailab María Haile EYELET PUNCH OPERATOR, HEAD OF INTEGRATED MEDIA Unavailable [phone] Nicho Posada MD Primary Care Provider [phone] Gregorio Garza DPM Unavailable Unavailable Reason for Visit * Reason Comments Medication Refill Encounter Details Date Type Department Care Team (Late st Contact Info) Description 11/11/2021 Refill [facility] [address] [place] [address] Brian Madsen MD [facility] [place] [address] Medication Refill Social History Tobacco Use Types Packs/Day Years Used Date Smoking Tobacco: Never Smokeless Tobacco: Never Alcohol Use Standard Drinks/Week Comments Yes 1 (1 standard drink = 0.6 oz pur e alcohol) Caustic Room Attendant PHQ-2 Answer Date Recorded Total Score - [...] COVID-19? No / Unsure 10/31/2021 2:34 PM REGIONAL OPERATIONS DIRECTOR documented as of this encounter Plan of Treatment Not on file documented as of this encounter Visit Diagnoses Not on filedocumented in this encounter Additional Health Concerns Assessment Noted Time PHQ-9 Depression Total Score: 0 08/05/20 21 3:00 PM CDT documented as of this encounter Care Teams Dermatologist Managing Partner Relationship Specialty Start Date End Date Vladimir Luis MD [address] [place] [address] PCP - General Family Medicine 07/25/16 01/07/22 Nicho Posada MD [address] [place] [address] [address] [place] [address] PCP - General Family Medicine 01/08/22 Mark Mai DPM [address] [place] [address] Consulting Physician Podiatry 07/25/16 07/31/22 María Ochoa APRN, HEAD OF INTEGRATED MEDIA [address] [place] [address] Referring Provider Advanced Practice Nurse 05/01/21 Grgeorio Garza DPM [address] [place] [address] [employer] [address] [place] [address] Consulting Physician Podiatry 07/03/22 documented as of this encounter
--- OUTSIDE RECORDS SUMMARY | 2025-01-04 14:10 | XMS_ITS | Encounter Summary ---
Author Organization [facility] Address [address] [place] [address] Phone Care Team Providers Care Quilting Machine Operator Name Role Phone María Ochoa APRN, PORTABLE TRACK LINE MARKER Unavailable [phone] Nicho Posada MD Primary Care Provider [phone] Gregorio Garza DPM Unavailable Unavailable Encounter Details Date Type Department Care Team (Late st Contact Info) Description 12/15/2022 Lab Requisition [facility] Laboratory Services [address] [place] [address] Raghavendra Kimble MD [address] [place] [address] Chronic kidney disease, unspecified Social History Tobacco Use Types Packs/Day Years Used Date Smoking Tobacco: Never Smokeless Tobacco: Never Alcohol Use Standard Drinks/Week Comments Yes 1 (1 standard drink = 0.6 oz pure alcohol) 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 No / Unsure 12/11/2022 11:16 AM GROCERY STORE BAGGER documented as of this encounter Plan of Treatment Not on file documented as of this encounter Procedures Procedure Name Priority Date/Time Associated Diagnosis Comments BASIC METABOLIC PANEL W/ CALCIUM TOTAL Routine 12/15/2022 10:35 AM GROCERY STORE BAGGER Chronic kidney disease, unspecified ALBUMIN Routine 12/15/2022 10:35 AM GROCERY STORE BAGGER Chronic kidney disease, unspecified ADJUSTED CALCIUM*SAMC Routine 12/15/2022 10:35 AM GROCERY STORE BAGGER Chronic kidney disease, unspecified documented in this encounter Results * (ABNORMAL) ALBUMIN (12/15/2022 10:35 AM GROCERY STORE BAGGER) ALBUMIN 2.6(L) 3.4 - 4.8 g/dL 12/15/2022 1:58 PM GROCERY STORE BAGGER [facility] Blood Venipuncture / Unknown 12/15/2022 10:35 AM GROCERY STORE BAGGER 12/15/2022 12:10 PM GROCERY STORE BAGGER us Raghavendra Kimble MD CHEMISTRY ORDERABLES Final Resul t Performing Organization Address [facility] Co de Phone Number [address] [address] * ADJUSTED CALCIUM*SAMC (12/15/2022 10:35 AM GROCERY STORE BAGGER) ADJUSTED CALCIUM 9.5 8.8 - 10.0 mg/dL 12/15/2022 2:07 PM GROCERY STORE BAGGER [facility] Blood Venipuncture / Unknown 12/15/2022 10:35 AM GROCERY STORE BAGGER 12/15/2022 12:10 PM GROCERY STORE BAGGER us Raghavendra Kimble MD CHEMISTRY ORDERABLES Final Resul t Performing Organization Address City/[facility] Co de Phone Number [address] [address] * (ABNORMAL) BASIC METABOLIC PANEL W/ CALCIUM TOTAL (12/15/2022 10:35 AM GROCERY STORE BAGGER) SODIUM 136 133 - 145 mmol/L 12/15/2022 1:51 PM [facility] POTASSIUM 3.9 3.5 - 5.1 mmol/L 12/15/2022 1:51 PM [facility] CHLORIDE 104 96 - 108 mmol/L 12/15/2022 1:51 PM [facility] CO2, VENOUS 26 21 - 32 mmol/L 12/15/2022 1:51 PM [facility] ANION GAP 9.9(L) 10.0 - 20.0 mmol/L 12/15/2022 1:51 PM [facility] GLUCOSE 307(H) 83 - 110 mg/dL 12/15/2022 1:51 PM [facility] BUN 23(H) 6 - 19 mg/dL 12/15/2022 1:51 PM [facility] CREATININE, BLOOD 1.50(H) 0.50 - 1.30 mg/dL 12/15/2022 1:51 PM [facility] BUN/CREATININE RATIO 15 12 - 20 ratio 12/15/2022 1:51 PM [facility] CALCIUM 8.4(L) 8.8 - 10.0 mg/dL 12/15/2022 1:51 PM [facility] Comment:Calcium low. Correct ed calcium to follow. GFR, ESTIMATED 49 12/15/2022 1:51 PM [facility] Comment: This eGFR is calculated using [...] Blood Venipuncture / Unknown 12/15/2022 10:35 AM GROCERY STORE BAGGER 12/15/2022 12:10 PM GROCERY STORE BAGGER us Raghavendra Kimble MD CHEMISTRY ORDERABLES Final Resul t [facility] [address] [place] [address] documented in this encounter Visit Diagnoses Diagnosis Chronic kidney disease, unspecified documented in this encounter Additional Health Concerns Assessment Noted Time PHQ-9 Depression Total Score: 0 08/05/20 21 3:00 PM CDT documented as of this encounter Care Teams Quilting Machine Operator Relationship Specialty Start Date End Date Nicho Posada MD [address] [place] [address] PCP - General Family Medicine 01/08/22 María Ochoa APRN, PORTABLE TRACK LINE MARKER [address] [place] [address] Referring Provider Advanced Practice Nurse 05/01/21 Gregoiro Garza DPM [address] [place] [address] Consulting Physician Podiatry 07/03/22 documented as of this encounter
--- OUTSIDE RECORDS SUMMARY | 2025-01-04 14:10 | XMS_ITS | Encounter Summary ---
Author Organization [facility] Address [address] [place] [address] Phone Care Team Providers Care Commission Specialist Name Role Phone María Ochoa APRN, WOOD CALKER Unavailable [phone] Nicho Posada MD Primary Care Provider [phone] Gregorio Garza DPM Unavailable Unavailable Reason for Visit * Reason Comments Medication Refill Encounter Details Date Type Department Care Team (Late st Contact Info) Description 08/18/2022 Refill [facility] [address] [place] [address] Brian Madsen MD [address] [place] [address] Medication Refill Social History Tobacco Use Types Packs/Day Years Used Date Smoking Tobacco: Never Smokeless Tobacco: Never Alcohol Use Standard Drinks/Week Comments Yes 1 (1 standard drink = 0.6 oz pur e alcohol) Hoop Punch And Coiler Operator Helper PHQ-2 Answer Date Recorded Total Score - [...] documented as of this encounter Care Teams Commission Specialist Relationship Specialty Start Date End Date Nicho Posada MD [address] [place] [address] [employer] [address] [place] [address] PCP - General Family Medicine 01/08/22 María Ochoa APRN, WOOD CALKER [address] [place] [address] Referring Provider Advanced Practice Nurse 05/01/21 Gregorio Garza DPM [address] [place] [address] [employer] [address] [place] [address] Consulting Physician Podiatry 07/03/22 documented as of this encounter
--- OUTSIDE RECORDS SUMMARY | 2025-01-04 14:10 | XMS_ITS | Encounter Summary ---
Author Organization [facility] Address [address] [place] [address] Phone Care Team Providers Care Environmental Health Sanitarian Name Role Phone María Ochoa APRN, AMA Unavailable [phone] Nicho Posada MD Primary Care Provider [phone] Gregorio Garza DPM Unavailable Unavailable Encounter Details Date Type Department Care Team (Late st Contact Info) Description 10/30/2022 Lab Requisition [facility] Laboratory Services [address] [place] [address] Raghavendra Kimble MD [address] [place] [address] Syncope and collapse Social History Tobacco Use Types Packs/Day Years Used Date Smoking Tobacco: Never Smokeless Tobacco: Never Alcohol Use Standard Drinks/Week Comments Yes 1 (1 standard drink = 0.6 oz pure alcohol) 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 , 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 PHQ-2 Answer Date Recorded Total Score - [...] No / Unsure 10/29/2022 10:33 AM MANAGER FOOD SAFETY documented as of this encounter Plan of Treatment Not on file documented as of this encounter Procedures Procedure Name Priority Date/Time Associated Diagnosis Comments CBC WITH AUTO DIFFERENTIAL Routine 10/30/2022 8:15 AM MANAGER FOOD SAFETY Syncope and collapse COMPLETE BLOOD COUNT (CBC) WITH DIFF Routine 10/30/2022 8:15 AM MANAGER FOOD SAFETY Syncope and collapse BASIC METABOLIC PANEL W/ CALCIUM TOTAL Routine 10/30/2022 8:15 AM MANAGER FOOD SAFETY Syncope and collapse ALBUMIN Routine 10/30/2022 8:15 AM MANAGER FOOD SAFETY Syncope and collapse ADJUSTED CALCIUM*SAMC Routine 10/30/2022 8:15 AM MANAGER FOOD SAFETY Syncope and collapse documented in this encounter Results * (ABNORMAL) ALBUMIN (10/30/2022 8:15 AM MANAGER FOOD SAFETY) ALBUMIN 2.5(L) 3.4 - 4.8 g/dL 10/30/2022 12:02 PM MANAGER FOOD SAFETY [facility] Blood Venipuncture / Unknown 10/30/2022 8:15 AM MANAGER FOOD SAFETY 10/30/2022 10:36 AM MANAGER FOOD SAFETY us Raghavendra Kimble MD CHEMISTRY ORDERABLES Final Resul t Performing Organization Address City/State/[facility] Co de Phone Number [facility] [address] [place] [address] * ADJUSTED CALCIUM*SAMC (10/30/2022 8:15 AM MANAGER FOOD SAFETY) ADJUSTED CALCIUM 9.9 8.8 - 10.0 mg/dL 10/30/2022 12:03 PM MANAGER FOOD SAFETY [facility] Blood Venipuncture / Unknown 10/30/2022 8:15 AM MANAGER FOOD SAFETY 10/30/2022 10:36 AM MANAGER FOOD SAFETY us Raghavendra Kimble MD CHEMISTRY ORDERABLES Final Resul t [facility] [address] [place] [address] * (ABNORMAL) CBC WITH AUTO DIFFERENTIAL (10/30/2022 8:15 AM [facility]) WBC 9.16 3.90 - 11.00 10(3)/mcL 10/30/2022 11:41 AM [facility] RBC 4.06(L) 4.20 - 5.80 10(6)/mcL 10/30/2022 11:41 AM [facility] HEMOGLOBIN (HGB) 11.3(L) 12.6 - 17.4 g/dL 10/30/2022 11:41 AM [facility] HEMATOCRIT (HCT) 35.3(L) 39.8 - 52.2 % 10/30/2022 11:41 AM [facility] MCV 86.9 80.0 - 100.0 fL 10/30/2022 11:41 AM [facility] MCH 27.8 26.5 - 33.9 pg 10/30/2022 11:41 AM [facility] MCHC 32.0 31.5 - 36.0 g/dL 10/30/2022 11:41 AM [facility] PLATELET COUNT 345 140 - 445 10(3)/mcL 10/30/2022 11:41 AM [facility] MPV 9.2 >=0.0 fL 10/30/2022 11:41 AM [facility] RDW 14.0 12.0 - 15.0 % 10/30/2022 11:41 AM [facility] NEUTROPHILS 72.2 % 10/30/2022 11:41 AM [facility] LYMPHOCYTES 11.7 % 10/30/2022 11:41 AM [facility] MONOCYTES 11.1 % 10/30/2022 11:41 AM [facility] EOSINOPHILS 3.7 % 10/30/2022 11:41 AM [facility] IMMATURE GRANULOCYTE % 0.9 % 10/30/2022 11:41 AM [facility] BASOPHILS 0.4 % 10/30/2022 11:41 AM [facility] ABSOLUTE NEUTROPHILS 6.61 1.40 - 7.30 10(3)/[facility] 10/30/2022 11:41 AM [facility] ABSOLUTE LYMPHOCYTES 1.07(L) 1.30 - 2.90 10(3)/mcL 10/30/2022 11:41 AM [facility] ABSOLUTE MONOCYTES 1.02(H) 0.10 - 0.80 10(3)/mcL 10/30/2022 11:41 AM [facility] ABSOLUTE EOSINOPHIL 0.34(H) 0.00 - 0.30 10(3)/[facility] 10/30/2022 11:41 AM [facility] ABSOLUTE BASOPHILS 0.04 0.00 - 0.10 10(3)/[facility] 10/30/2022 11:41 AM [facility] ABSOLUTE IMMATURE GRANULOCYTE 0.08 0.00 - 0.10 10 (3) mcL. 10/30/2022 11:41 AM [facility] NRBC PER 100 WBC 0.0 0.0 - 0.0 % 10/30/2022 11:41 AM [facility] ABSOLUTE NRBC 0.00 10 (3) mcL. 10/30/2022 11:41 AM [facility] Blood Venipuncture / Unknown 10/30/2022 8:15 AM [facility] 10/30/2022 10:36 AM [facility] us Raghavendra Shyanne VILLARREAL HEMATOLOGY ORDERABLES Final Resu lt [facility] [address] [place] [address] * (ABNORMAL) BASIC METABOLIC PANEL W/ CALCIUM TOTAL (10/30/2022 8:15 AM [facility]) SODIUM 138 133 - 145 mmol/L 10/30/2022 11:55 AM [facility] POTASSIUM 4.3 3.5 - 5.1 mmol/L 10/30/2022 11:55 AM [facility] CHLORIDE 108 96 - 108 mmol/L 10/30/2022 11:55 AM [facility] CO2, VENOUS 24 21 - 32 mmol/L 10/30/2022 11:55 AM [facility] ANION GAP 10.3 10.0 - 20.0 mmol/L 10/30/2022 11:55 AM [facility] GLUCOSE 243(H) 83 - 110 mg/dL 10/30/2022 11:55 AM [facility] BUN 23(H) 6 - 19 mg/dL 10/30/2022 11:55 AM [facility] CREATININE, BLOOD 1.40(H) 0.50 - 1.30 mg/dL 10/30/2022 11:55 AM [facility] BUN/CREATININE RATIO 16 12 - 20 ratio 10/30/2022 11:55 AM [facility] CALCIUM 8.7(L) 8.8 - 10.0 mg/dL 10/30/2022 11:55 AM [facility] Comment:Calcium low. Correct ed calcium to follow. GFR, ESTIMATED 53 10/30/2022 11:55 AM [facility] Comment: This eGFR is calculated using 2020 [...] Blood Venipuncture / Unknown 10/30/2022 8:15 AM MANAGER FOOD SAFETY 10/30/2022 10:36 AM [facility] us Raghavendra Kimble MD CHEMISTRY ORDERABLES Final Resul t [facility] [address] [place] [address] documented in this encounter Visit Diagnoses Diagnosis Syncope and collapse documented in this encounter Additional Health Concerns Assessment Noted Time PHQ-9 Depression Total Score: 0 08/05/20 3:00 PM CDT documented as of this encounter Care Teams Environmental Health Sanitarian Relationship Specialty Start Date End Date Nicho Posada MD [facility] [employer] [address] [place] [address] PCP - General Family Medicine 01/08/22 María Ochoa APRN, EBAY RESELLER [address] [place] [address] Referring Provider Advanced Practice Nurse 05/01/21 Gregorio Garza DPM [address] [employer] [address] [place] [address] Consulting Physician Podiatry 07/03/22 documented as of this encounter
--- OUTSIDE RECORDS SUMMARY | 2025-01-04 14:10 | XMS_ITS | Encounter Summary ---
Author Organization [facility] Address [address] [place] [address] Phone Care Team Providers Care Commercial Mortgage Broker Name Role Phone María Ochoa APRN, CHROME WORKER Unavailable [phone] Nicho Posada MD Primary Care Provider [phone]- [phone] Gregorio Garza DPM Unavailable Unavailable Reason for Visit * Reason Comments Medication Refill Encounter Details Date Type Department Care Team (Late st Contact Info) Description 11/07/2022 Refill [facility] [address] [place] [address] Brian Madsen MD [address] [place] [address] Medication Refill Social History Tobacco Use Types Packs/Day Years Used Date Smoking Tobacco: Never Smokeless Tobacco: Never Alcohol Use Standard Drinks/Week Comments Yes 1 (1 standard drink = 0.6 oz pure alcohol) 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 No / Unsure 10/29/2022 10:33 AM RAIL FLAW DETECTOR OPERATOR documented as of this encounter Miscellaneous Notes * Telephone Encounter - Suly Leong RN - 11/11/2022 4:03 PM CST PT CURRENT [place]HAS APPT 11/13 FLAW DETECTOR OPERATOR documented in this encounter Plan of Treatment Not on file documented as of this encounter Visit Diagnoses Not on filedocumented in this encounter Additional Health Concerns Assessment Noted Time PHQ-9 Depression Total Score: 0 08/05/20 21 3:00 PM CDT documented as of this encounter Care Teams Commercial Mortgage Broker Relationship Specialty Start Date End Date Nicho Posada MD [address] [place] [address] [employer] [address] [place] [address] PCP - General Family Medicine 01/08/22 María Ochoa, CARBON COATER MACHINE OPERATOR, CHROME WORKER [address] [place] [address] Referring Provider Advanced Practice Nurse 05/01/21 Gregorio Garza DPM [address] [place] [address] [employer] [address] [place] [address] Consulting Physician Podiatry 07/03/22 documented as of this encounter
--- OUTSIDE RECORDS SUMMARY | 2025-01-04 14:10 | XMS_ITS | Encounter Summary ---
Author Organization [facility] Address [address] [place] [address] Care Team Providers Care Terrazzo Layer Helper Name Role Phone Puma Coronado MD Unavailable Edu Saavedra MD Unavailable Unavailab Alexis Deras MD Unavailable [phone] Familia Ford APRN Unavailable [phone] Nicho Posada MD Primary Care Provider + [phone] Raghavendra Kimble MD Unavailable [phone] Dhaval Dyer MD Unavailable Encounter Details Date Type Department Care Team (Late st Contact Info) Description 01/30/2018 Abstract [facility] CONVERSION [address] [place] [address] , Generic Conversion, Social History Tobacco Use Types Packs/Day Years Used Date Smoking Tobacco: Never Alcohol Use Standard Drinks/Week Comments No 0 (1 standard drink = 0.6 oz pur e alcohol) Sex and Gender Information Value Date Recorded Sex Assigned at Male 12/16/2024 1:31 PM WHARF HELPER Legal Sex Male 9:51 PM CDT Gender Identity Male 02/24/2022 7:56 AM CDT Sexual Orientation Not on file documented as of this encounter Plan of Treatment Upcoming Encounters Date Type Department Care Team (Late Contact Info) Description 02/02/2025 3:30 AM CDT Allied Health/Nurse Visit [facility] [address] [place] [phone] Dhaval Dyer MD [address] [place] [address] 02/10/2025 11:15 AM CDT Office Visit [facility] [address] [place] [address] Servando Kumar, DPM [address] [place] [phone] documented as of this encounter Visit Diagnoses Not on filedocumented in this encounter Additional Health Concerns Infection Onset Date Last Indicated Resolved Time COVID-19 Rule Out 10/23/2022 10/23/2022 10/23/2022 1:33 PM WHARF HELPER documented as of this encounter Care Teams Terrazzo Layer Helper Relationship Specialty Start Date End Date Nicho Posada MD [address] [place] [id number] PCP - General FAMILY PRACTICE 02/21/22 Puma Coronado MD [address] [place] [address] [facility] Office Representative CARDIOVASCULAR DISEASE 01/28/18 Edu Saavedra MD [address] [place] [address] Consulting Physician SURGERY 01/28/18 Alexis Bush MD [address] [place] [address] Consulting Physician INTERVENTIONAL CARDIOLOGY 01/09/21 Familia Ford APRN [address] [place] [address] Nurse Practitioner NURSE PRACTITIONER 01/09/21 Raghavendra Kimble MD [address] [place] [address] HOSPITALIST 10/24/22 01/13/23 Dhaval Dyer MD [address] [place] [address] Consulting Physician CLINICAL CARDIAC ELECTROPHYSIOLOGY 05/08/23 documented as of this encounter
--- OUTSIDE RECORDS SUMMARY | 2025-01-04 14:10 | XMS_ITS | Encounter Summary ---
Author Organization [facility] Address [address] [place] [address] Phone Care Team Providers Care Soccer Coach Name Role Phone María Ochoa APRN, IRONER SOCK Unavailable [phone] Nicho Posada MD Primary Care Provider [phone] Gregorio Garza DPM Unavailable Unavailable Encounter Details Date Type Department Care Team (Late st Contact Info) Description 10/31/2022 Lab Requisition [facility] Laboratory Services [address] [place] [address] Brian Madsen MD [address] [place] [address] Chronic kidney disease, stage 3 unspecified (HCC) Social History Tobacco Use Types Packs/Day Years Used Date Smoking Tobacco: Never Smokeless Tobacco: Never Alcohol Use Standard Drinks/Week Comments Yes 1 (1 standard drink = 0.6 oz pure alcohol) 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 No / Unsure 10/29/2022 10:33 AM ELECTRONIC LAB TECHNICIAN documented as of this encounter Plan of [...] documented as of this encounter Care Teams Soccer Coach Relationship Specialty Start Date End Date Nicho Posada MD [facility] [employer] [address] [place] [address] PCP - General Family Medicine 01/08/22 María Ochoa APRN, IRONER SOCK [address] [place] [address] Referring Provider Advanced Practice Nurse 05/01/21 Gregorio Garza DPM [facility] [employer] [address] [place] [address] Consulting Physician Podiatry 07/03/22 documented as of this encounter
--- OUTSIDE RECORDS SUMMARY | 2025-01-04 14:10 | XMS_ITS | Clinical Summary ---
Author Organization [facility] Address [address] [facility] [address] LE[address], [address] [place] [address] Phone Care Team Providers Care Hyperbaric Nurse Name Role Phone María Ochoa APRN, AMA Unavailable [phone] Nicho Posada MD Primary Care Provider [phone] Gregorio Garza DPM Unavailable Unavailable Allergies No [...] Toenail avulsion, subsequent encounter 1 Onychocryptosis 08/16/2020 penitentiary (current) use of insulin 07/11/2019 Chest pain 07/11/2019 CKD (chronic kidney disease) stage 3, GFR 30-59 ml/min 07/11/2019 Nuclear sclerotic cataract of left eye 8 Overview (07/27/2018): RIGHT CATARACT SURGERY [facility] Diabetic polyneuropathy asso ciated with type 2 diabetes mellitus 02/25/2018 Paronychia of great toe, right 10/15/2017 Skin ulceration 04/30/2017 Onychogryposis 08/21/2016 Type II diabetes mellitus with peripheral angiop athy [place] or callus Family History Medical History Relation [...] 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 PHQ-2 Answer Date Recorded Total Score - Questions 1-9 0 09/1 03/2022 Sexually Active Control Partners Comments Never Sex and Gender Information Value Date Recorded Sex Assigned at Not on file Legal Sex Male 10:55 AM CDT Gender Identity Not on file Sexual Orientation Not on file Last Filed Vital Signs Vital Sign Reading Time Taken Comments Blood Pressure 142/84 01/01/2023 10:58 AM ORACLE SECURITY CONSULTANT Pulse 85 01/01/2023 10:58 AM ORACLE SECURITY CONSULTANT Temperature 37 C (98.6 F) 10/13/2022 1:21 PM ORACLE SECURITY CONSULTANT Respiratory Rate 16 10/01/2022 9:32 AM ORACLE SECURITY CONSULTANT Oxygen Saturation 96% 10/01/2022 9:32 AM ORACLE SECURITY CONSULTANT Inhaled Oxygen Concentration - - Weight 122.5 kg (270 lb) 01/01/2023 10:58 AM ORACLE SECURITY CONSULTANT Height 182.9 cm (6') 01/01/2023 10:58 AM ORACLE SECURITY CONSULTANT Body Mass Index 36.62 01/01/2023 10:58 AM ORACLE SECURITY CONSULTANT Plan of Treatment Health Maintenance Due Date [...] this topic Medical Devices Implanted Type Area White Lead Filterer Device Identifier Shelf Expiration Date Model / Serial / Lot Iol Toric Sn6at - [id number] Implanted:Qty: 1 on 08/16/2018 by Gregory Jordan MD at [facility] IMPLANT Right: Eye [employer] 01/14/2019 [id number] / [id number] / UNKNOWN Procedures Procedure Name Priority Date/Time Associated Diagnosis Comments UR MICROALBUMIN/CREATI NINE RATIO RANDOM Routine 10/31/2022 9:00 PM ORACLE SECURITY CONSULTANT HEMOGLOBIN A1C W/ ESTIMATED GLUCOSE Routine 10/09/2021 11:03 AM ORACLE SECURITY CONSULTANT Type 2 diabetes with nephropathy (HCC) from Last 3 Months or Most Recently Relevant to Health Maintenance Results * (ABNORMAL) UR MICROALBUMIN/CREATININE RATIO RANDOM (10/31/2022 9:00 PM ORACLE SECURITY CONSULTANT) CREATININE URINE 119.0 >=0.0 mg/dL 11/01/2022 12:15 AM ORACLE SECURITY CONSULTANT [facility] ALB/CREAT RATIO 256(H) 0 - 29 mg/g CRE 11/01/2022 12:15 AM ORACLE SECURITY CONSULTANT [facility] Comment: Per ADA recommendations: Microalbumin/Creatinine Ratio <30 = normal, 30-300 = microalbuminuria, >300 = clinical albuminuria. Classification is based on at least 2 of 3 abnormal results within 3-6 months. [facility] MALB RANDOM UR 305.0 mg/L 11/01/2022 12:15 AM ORACLE SECURITY CONSULTANT [facility] Urine Non-Phlebotomy Collection / Unknown 10/31/2022 9:00 PM ORACLE SECURITY CONSULTANT 10/31/2022 11:39 PM ORACLE SECURITY CONSULTANT us Brian Madsen MD URINE ORDERABLES Final Res ult [facility] [address] [place] [address] * (ABNORMAL) HEMOGLOBIN A1C W/ ESTIMATED GLUCOSE (10/09/2021 11:03 AM ORACLE SECURITY CONSULTANT) HGB-A1C 8.0(H) 4.0 - 6.0 % 10/09/2021 2:06 PM ORACLE SECURITY CONSULTANT [facility] Est Average Glucose 182.9 mg/dL 10/09/2021 2:06 PM ORACLE SECURITY CONSULTANT [facility] Blood Venipuncture / Unknown 10/09/2021 11:03 AM ORACLE SECURITY CONSULTANT 10/09/2021 1:52 PM ORACLE SECURITY CONSULTANT Narrative [facility] - 10/09/2021 2:06 PM ORACLE SECURITY CONSULTANT HEMOGLOBIN A1C: DIABETIC PATIENTS: WELL-CONTROLLED: 6.2 - 7.0 INTERMEDIATE WELL-CONTROLLED: 7.0 - 9.0 POORLY-CONTROLLED: >9.0 Vladimir Luis MD CHEMISTRY ORDERABLES Catia serrato Result [facility] [address] [place] [address] from Last 3 Months or Most Recently Relevant to Health Maintenance Insurance [employer] MEDICARE [employer] Advance Directives * Full Code (Latest Code Status on File) Date Activated Date Inactivated Comments 07/11/2019 6:52 PM 07/13/2019 6:23 PM CPR-Full Jacek atment: FULL ARREST: Attempt Resuscitation/CPR wit intubation and mechanical ventilation. PRE-ARREST: Use entire range of life support measures to stabilize the patient. Care Teams Hyperbaric Nurse Relationship Specialty Start Date End Date Nicho Posada MD [address] [place] [address] [address] [place] [address] PCP - General Family Medicine 01/08/22 María Ochoa, APPRAISER TIMBER, ADOBE MAKER [address] [place] [address] Referring Provider Advanced Practice Nurse 05/01/21 Gregorio Garza DPM [address] [place] [address] [address] [place] [address] Consulting Physician Podiatry 07/03/22
--- OUTSIDE RECORDS SUMMARY | 2025-01-04 14:10 | XMS_ITS | Encounter Summary ---
Author Organization [facility] Address [address] [place] [address] Phone Care Team Providers Care Technology Integration Specialist Name Role Phone María Ochoa APRN, CABLE TENDER Unavailable [phone] Nicho Posada MD Primary Care Provider [phone] Gregorio Garza DPM Unavailable Unavailable Encounter Details Date Type Department Care Team (Late st Contact Info) Description 12/23/2022 Lab Requisition [facility] Laboratory Services [address] [place] [address] Raghavendra Kimble MD [address] [place] [address] Chronic kidney disease, unspecified Social History Tobacco Use Types Packs/Day Years Used Date Smoking Tobacco: Never Smokeless Tobacco: Never Alcohol Use Standard Drinks/Week Comments Yes 1 (1 standard drink = 0.6 oz pure alcohol) 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 No / Unsure 12/11/2022 11:16 AM CLASSIFIER OPERATOR documented as of this encounter Plan of Treatment Not on file documented as of this encounter Procedures Procedure Name Priority Date/Time Associated Diagnosis Comments BASIC METABOLIC PANEL W/ CALCIUM TOTAL Routine 12/23/2022 7:25 AM CLASSIFIER OPERATOR Chronic kidney disease, unspecified documented in this encounter Results * (ABNORMAL) BASIC METABOLIC PANEL W/ CALCIUM TOTAL (12/23/2022 7:25 AM CLASSIFIER OPERATOR) SODIUM 139 133 - 145 mmol/L 12/23/2022 11:03 AM [facility] POTASSIUM 3.9 3.5 - 5.1 mmol/L 12/23/2022 11:03 AM [facility] CHLORIDE 103 96 - 108 mmol/L 12/23/2022 11:03 AM [facility] CO2, VENOUS 28 21 - 32 mmol/L 12/23/2022 11:03 AM [facility] ANION GAP 11.9 10.0 - 20.0 mmol/L 12/23/2022 11:03 AM [facility] GLUCOSE 188(H) 83 - 110 mg/dL 12/23/2022 11:03 AM [facility] BUN 23(H) 6 - 19 mg/dL 12/23/2022 11:03 AM [facility] CREATININE, BLOOD 1.50(H) 0.50 - 1.30 mg/dL 12/23/2022 11:03 AM [facility] BUN/CREATININE RATIO 15 12 - 20 ratio 12/23/2022 11:03 AM [facility] CALCIUM 8.8 8.8 - 10.0 mg/dL 12/23/2022 11:03 AM [facility] GFR, ESTIMATED 49 12/23/2022 11:03 AM [facility] Comment: This eGFR is calculated using 2020 [...] Blood Venipuncture / Unknown 12/23/2022 7:25 AM CLASSIFIER OPERATOR 12/23/2022 8:21 AM CLASSIFIER OPERATOR us Raghavendra Kimble MD CHEMISTRY ORDERABLES Final Resul t [facility] [address] [place] [address] documented in this encounter Visit Diagnoses Diagnosis Chronic kidney disease, unspecified documented in this encounter Additional Health Concerns Assessment Noted Time PHQ-9 Depression Total Score: 0 08/05/20 3:00 PM CDT documented as of this encounter Care Teams Technology Integration Specialist Relationship Specialty Start Date End Date Nicho Posada MD [address] [place] [address] [address] [place] [address] PCP - General Family Medicine 01/08/22 María Ochoa APRN, CABLE TENDER [address] [place] [address] Referring Provider Advanced Practice Nurse 05/01/21 Gregorio Garza DPM [address] [place] [address] [address] [place] [address] Consulting Physician Podiatry 07/03/22 documented as of this encounter
--- OUTSIDE RECORDS SUMMARY | 2025-01-04 14:10 | XMS_ITS | Encounter Summary ---
Author Organization [facility] Address [address] [place] [address] Phone Care Team Providers Care Carbon Furnace Operator Name Role Phone María Ochoa APRN, FORMULA BOTTLER Unavailable [phone] Nicho Posada MD Primary Care Provider [phone] Gregorio Garza DPM Unavailable Unavailable Reason for Visit * Reason Comments Medication Refill Encounter Details Date Type Department Care Team (Late st Contact Info) Description 11/16/2022 Refill [facility] [address] [place] [address] Brian Madsen MD [address] [place] [address] Medication Refill Social History Tobacco Use Types Packs/Day Years Used Date Smoking Tobacco: Never Smokeless Tobacco: Never Alcohol Use Standard Drinks/Week Comments Yes 1 (1 standard drink = 0.6 oz pure alcohol) 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 No / Unsure 11/19/2022 9:28 AM ADOBE ARCHITECT documented as of this encounter Functional Status * Question Answer Date of Assessment Author Little interest or pleasure in doing things Not at all 11/19/2022 10:00 AM ADOBE ARCHITECT Suly Leong RN Feeling down, depressed, or hopeless Not at all 11/19/2022 10:00 AM ADOBE ARCHITECT Suly Leong RN * Over the past 2 weeks, how often have you been bothered by any of the following problems? Question Answer Date of Assessment Author Patient Health Questionnaire-2 Score 0 02/2023 10:00 AM ADOBE ARCHITECT Suly Leong RN documented as of this encounter Miscellaneous Notes * Telephone Encounter - Suly Leong RN - 11/18/2022 3:06 PM CST PT IS CURRENTLY IN CARE HOME E ARCHITECT documented in this encounter Plan of Treatment Not on file documented as of this encounter Visit Diagnoses Not on filedocumented in this encounter Additional Health Concerns Assessment Noted Time PHQ-9 Depression Total Score: 0 08/05/20 21 3:00 PM CDT documented as of this encounter Care Teams Carbon Furnace Operator Relationship Specialty Start Date End Date Nicho Posada MD [address] [place] [address] [employer] [address] [place] [address] PCP - General Family Medicine 01/08/22 María Ochoa APRN, FORMULA BOTTLER [address] [place] [address] Referring Provider Advanced Practice Nurse 05/01/21 Gregorio Garza DPM [address] [place] [address] [employer] [address] [place] [address] Consulting Physician Podiatry 07/03/22 documented as of this encounter
--- OUTSIDE RECORDS SUMMARY | 2025-01-04 14:10 | XMS_ITS | Encounter Summary ---
Author Organization [facility] Address [address] [place] [address] Phone Care Team Providers Care Wet Cotton Feeder Name Role Phone María Ochoa APRN, PRE K TEACHER Unavailable [phone] Nicho Posada MD Primary Care Provider [phone] Gregorio Garza DPM Unavailable Unavailable Encounter Details Date Type Department Care Team (Late st Contact Info) Description 11/05/2022 Lab Requisition [facility] Laboratory Services [address] [place] [address] Brian Madsen MD [address] [place] [address] Chronic kidney disease, stage 3 unspecified (HCC) Social History Tobacco Use Types Packs/Day Years Used Date Smoking Tobacco: Never Smokeless Tobacco: Never Alcohol Use Standard Drinks/Week Comments Yes 1 (1 standard drink = 0.6 oz pure alcohol) 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 No / Unsure 10/29/2022 10:33 AM C++ PROFESSOR documented as of this encounter Plan of Treatment Not on file documented as of this encounter Procedures Procedure Name Priority Date/Time Associated Diagnosis Comments BASIC METABOLIC PANEL W/ CALCIUM TOTAL Routine 11/05/2022 7:45 AM C++ PROFESSOR Chronic kidney disease, stage 3 unspecified (HCC) documented in this encounter Results * (ABNORMAL) BASIC METABOLIC PANEL W/ CALCIUM TOTAL (11/05/2022 7:45 AM C++ PROFESSOR) SODIUM 136 133 - 145 mmol/L 11/05/2022 10:40 AM [facility] POTASSIUM 4.7 3.5 - 5.1 mmol/L 11/05/2022 10:40 AM [facility] CHLORIDE 103 96 - 108 mmol/L 11/05/2022 10:40 AM [facility] CO2, VENOUS 27 21 - 32 mmol/L 11/05/2022 10:40 AM [facility] ANION GAP 10.7 10.0 - 20.0 mmol/L 11/05/2022 10:40 AM [facility] GLUCOSE 225(H) 83 - 110 mg/dL 11/05/2022 10:40 AM [facility] BUN 31(H) 6 - 19 mg/dL 11/05/2022 10:40 AM [facility] CREATININE, BLOOD 1.40(H) 0.50 - 1.30 mg/dL 11/05/2022 10:40 AM [facility] BUN/CREATININE RATIO 22(H) 12 - 20 ratio 11/05/2022 10:40 AM [facility] CALCIUM 8.9 8.8 - 10.0 mg/dL 11/05/2022 10:40 AM [facility] GFR, ESTIMATED 53 11/05/2022 10:40 AM [facility] Comment: This eGFR is calculated using [...] Blood Venipuncture / Unknown 11/05/2022 7:45 AM C++ PROFESSOR 11/05/2022 9:34 AM C++ PROFESSOR us Brian Madsen MD CHEMISTRY ORDERABLES Final Result Performing Organization Address City/State/[facility] Co de Phone Number [facility] [address] [place] [address] documented in this encounter Visit Diagnoses Diagnosis Chronic kidney disease, stage 3 unspecified (HCC) documented in this encounter Additional Health Concerns Assessment Noted Time PHQ-9 Depression Total Score: 0 08/05/20 21 3:00 PM CDT documented as of this encounter Care Teams Wet Cotton Feeder Relationship Specialty Start Date End Date Nicho Posada MD [facility] [employer] [address] [place] [address] PCP - General Family Medicine 01/08/22 María Ochoa APRN, PRE K TEACHER [address] [place] [address] Referring Provider Advanced Practice Nurse 05/01/21 Gregorio Garza DPM [address] [employer] [address] [place] [address] Consulting Physician Podiatry 07/03/22 documented as of this encounter
--- OUTSIDE RECORDS SUMMARY | 2025-01-04 14:10 | XMS_ITS | Encounter Summary ---
Author Organization [facility] Address [address] [place] [address] Phone Care Team Providers Care Border Patrol Agent Name Role Phone María Ochoa APRN, QUILTER FIXER Unavailable [phone] Nicho Posada MD Primary Care Provider [phone]- [phone] Gregorio Garza DPM Unavailable Unavailable Encounter Details Date Type Department Care Team (Late st Contact Info) Description 10/31/2022 Lab Requisition [facility] Laboratory Services [address] [place] [address] Brian Madsen MD [address] [place] [address] Chronic kidney disease, stage 3 unspecified (HCC) Social History Tobacco Use Types Packs/Day Years Used Date Smoking Tobacco: Never Smokeless Tobacco: Never Alcohol Use Standard Drinks/Week Comments Yes 1 (1 standard drink = 0.6 oz pure alcohol) 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 No / Unsure 10/29/2022 10:33 AM CHRONIC DISEASE MANAGER documented as of this encounter Plan of Treatment Not on file documented as of this encounter Procedures Procedure Name Priority Date/Time Associated Diagnosis Comments RENAL FUNCTION PANEL (RFP) Routine 10/31/2022 8:25 AM CHRONIC DISEASE MANAGER Chronic kidney disease, stage 3 unspecified (HCC) [facility] Routine 10/31/2022 8:25 AM CHRONIC DISEASE MANAGER Chronic kidney disease, stage 3 unspecified (HCC) documented in this encounter Results * ADJUSTED CALCIUM*[facility] (10/31/2022 8:25 AM CHRONIC DISEASE MANAGER) ADJUSTED CALCIUM 10.0 8.8 - 10.0 mg/dL 10/31/2022 11:32 AM [facility] Blood Venipuncture / Unknown 10/31/2022 8:25 AM CHRONIC DISEASE MANAGER 10/31/2022 9:54 AM CHRONIC DISEASE MANAGER us Brian Madsen MD CHEMISTRY ORDERABLES Final Result [place] [id number] [place] [address] * (ABNORMAL) RENAL FUNCTION PANEL (RFP) (10/31/2022 8:25 AM CHRONIC DISEASE MANAGER) SODIUM 136 133 - 145 mmol/L 10/31/2022 11:31 AM [facility] POTASSIUM 4.7 3.5 - 5.1 mmol/L 10/31/2022 11:31 AM [facility] CHLORIDE 106 96 - 108 mmol/L 10/31/2022 11:31 AM [facility] CO2, VENOUS 24 21 - 32 mmol/L 10/31/2022 11:31 AM [facility] ANION GAP 10.7 10.0 - 20.0 mmol/L 10/31/2022 11:31 AM [facility] GLUCOSE 275(H) 83 - 110 mg/dL 10/31/2022 11:31 AM [facility] Comment: Venipuncture should occur prior to administration of sulfasalazine and/or sulfapyridine. Glucose can be falsely depressed after administration of sulfasalazine, and falsely elevated with administration of sulfapyridine. BUN 23(H) 6 - 19 mg/dL 10/31/2022 11:31 AM [facility] CREATININE, BLOOD 1.40(H) 0.50 - 1.30 mg/dL 10/31/2022 11:31 AM [facility] BUN/CREATININE RATIO 16 12 - 20 ratio 10/31/2022 11:31 AM [facility] ALBUMIN 2.4(L) 3.4 - 4.8 g/dL 10/31/2022 11:31 AM [facility] CALCIUM 8.7(L) 8.8 - 10.0 mg/dL 10/31/2022 11:31 AM [facility] Comment:Calcium low. Correct ed calcium to follow. PHOSPHORUS 3.5 2.6 - 4.5 mg/dL 10/31/2022 11:31 AM [facility] GFR, ESTIMATED 53 10/31/2022 11:31 AM [facility] Comment: This eGFR is calculated using [...] Blood Venipuncture / Unknown 10/31/2022 8:25 AM CHRONIC DISEASE MANAGER 10/31/2022 9:54 AM CHRONIC DISEASE MANAGER us Brian Madsen MD CHEMISTRY ORDERABLES Final Result [facility] [address] [place] [address] documented in this encounter Visit Diagnoses Diagnosis Chronic kidney disease, stage 3 unspecified (HCC) documented in this encounter Additional Health Concerns Assessment Noted Time PHQ-9 Depression Total Score: 0 08/05/20 21 3:00 PM CDT documented as of this encounter Care Teams Border Patrol Agent Relationship Specialty Start Date End Date Nicho Posada MD [facility] [employer] [address] [place] [address] PCP - General Family Medicine 01/08/22 María Ochoa APRN, QUILTER FIXER [address] [place] [address] Referring Provider Advanced Practice Nurse 05/01/21 Gregorio Garza DPM [address] [facility] [employer] [address] [place] [address] Consulting Physician Podiatry 07/03/22 documented as of this encounter
--- OUTSIDE RECORDS SUMMARY | 2025-01-04 14:10 | XMS_ITS | Encounter Summary ---
Author Organization [facility] Address [address] [place] [address] Phone Care Team Providers Care Fuel System Maintenance Supervisor Name Role Phone María Ochoa APRN, FLAT LOCK OPERATOR Unavailable [phone] Nicho Posada MD Primary Care Provider [phone] Gregorio Garza DPM Unavailable Unavailable Encounter Details Date Type Department Care Team (Latest Contact Info) Description 10/31/2022 Transcribe Orders [facility] [address] [place] [address] Valeriy Flores APRN, FLAT LOCK OPERATOR [address] [place] [address] Hypertension, unspecified type (Primary Dx) Social History Tobacco Use Types Packs/Day Years Used Date Smoking Tobacco: Never Smokeless Tobacco: Never Alcohol Use Standard Drinks/Week Comments Yes 1 (1 standard drink = 0.6 oz pure alcohol) 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 No / Unsure 10/29/2022 10:33 AM FOOTWEAR MACHINERY INSTRUCTOR documented as of this encounter Plan of [...] documented as of this encounter Care Teams Fuel System Maintenance Supervisor Relationship Specialty Start Date End Date Nicho Posada MD [address] [employer] [address] [place] [address] PCP - General Family Medicine 01/08/22 María Ochoa APRN, FLAT LOCK OPERATOR [address] [place] [address] Referring Provider Advanced Practice Nurse 05/01/21 Gregorio Garza DPM [address] [place] [address] Consulting Physician Podiatry 07/03/22 documented as of this encounter
--- OUTSIDE RECORDS SUMMARY | 2025-01-04 14:10 | XMS_ITS | Encounter Summary ---
Author Organization [facility] Address [address] [place] [address] Phone Care Team Providers Care Single Pointed Operator Name Role Phone María Ochoa APRN, IV TECHNICIAN Unavailable [phone] Nicho Posada MD Primary Care Provider [phone] Gregorio Garza DPM Unavailable Unavailable Reason for Visit * Reason Comments Medication Refill Encounter Details Date Type Department Care Team (Late st Contact Info) Description 10/17/2022 Refill [facility] [address] [place] [address] Brian Madsen MD [address] [place] [address] Medication Refill Social History Tobacco Use Types Packs/Day Years Used Date Smoking Tobacco: Never Smokeless Tobacco: Never Alcohol Use Standard Drinks/Week Comments Yes 1 (1 standard drink = 0.6 oz pure alcohol) 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 No / Unsure 10/13/2022 1:07 PM SEARCH SPECIALIST documented as of this encounter Plan of Treatment Not on file documented as of this encounter Visit Diagnoses Not on filedocumented in this encounter Additional Health Concerns Assessment Noted Time PHQ-9 Depression Total Score: 0 08/05/20 21 3:00 PM CDT documented as of this encounter Care Teams Single Pointed Operator Relationship Specialty Start Date End Date Nicho Posada MD [facility] [employer] [address] [place] [address] PCP - General Family Medicine 01/08/22 María Ochoa APRN, IV TECHNICIAN [address] [place] [address] Referring Provider Advanced Practice Nurse 05/01/21 Gregorio Garza DPM [facility] [employer] [address] [place] [address] Consulting Physician Podiatry 07/03/22 documented as of this encounter
--- OUTSIDE RECORDS SUMMARY | 2025-01-04 14:10 | XMS_ITS | Encounter Summary ---
Author Organization [facility] Address [address] [place] [address] Phone Care Team Providers Care Apartment Maintenance Technician Name Role Phone Vladimir Luis MD Primary Care Provider [phone] Mark Mai DPM Unavailable Unavailab María Haile MATERIAL COORDINATOR, GENETIC COORDINATOR Unavailable [phone] Nicho Posada MD Primary Care Provider [phone] Gregorio Garza DPM Unavailable Unavailable Reason for Visit * Reason Comments Medication Refill Encounter Details Date Type Department Care Team (Late st Contact Info) Description 12/23/2021 Refill [facility] [address] [place] [address] Brian Madsen MD [facility] [place] [address] Medication Refill Social History Tobacco Use Types Packs/Day Years Used Date Smoking Tobacco: Never Smokeless Tobacco: Never Alcohol Use Standard Drinks/Week Comments Yes 1 (1 standard drink = 0.6 oz pur e alcohol) Labor Relations Specialist PHQ-2 Answer Date Recorded Total Score - [...] COVID-19? No / Unsure 12/02/2021 4:02 PM CUSTOMER ENGAGEMENT ANALYST documented as of this encounter Plan of Treatment Not on file documented as of this encounter Visit Diagnoses Not on filedocumented in this encounter Additional Health Concerns Assessment Noted Time PHQ-9 Depression Total Score: 0 08/05/20 21 3:00 PM CDT documented as of this encounter Care Teams Apartment Maintenance Technician Relationship Specialty Start Date End Date Vladimir Luis MD [address] [place] [address] PCP - General Family Medicine 07/25/16 01/07/22 Nicho Posada MD [address] [place] [address] [address] [place] [address] PCP - General Family Medicine 01/08/22 Mark Mai DPM [address] [place] [address] Consulting Physician Podiatry 07/25/16 07/31/22 María Ochoa APRN, GENETIC COORDINATOR [address] [place] [address] Referring Provider Advanced Practice Nurse 05/01/21 Gregorio Garza DPM [address] [place] [address] [address] [place] [address] Consulting Physician Podiatry 07/03/22 documented as of this encounter
--- OUTSIDE RECORDS SUMMARY | 2025-01-04 14:10 | XMS_ITS | Encounter Summary ---
Author Organization [facility] Address [address] [place] [address] Phone Care Team Providers Care Electronics Production Supervisor Name Role Phone María Ochoa APRN, ZIGZAG TOPSTITCHER Unavailable [phone] Nicho Posada MD Primary Care Provider [phone] Gregorio Garza DPM Unavailable Unavailable Encounter Details Date Type Department Care Team (Late st Contact Info) Description 12/01/2022 Lab Requisition [facility] Laboratory Services [address] [place] [address] Brian Madsen MD [address] [place] [address] Chronic kidney disease, unspecified Social History Tobacco Use Types Packs/Day Years Used Date Smoking Tobacco: Never Smokeless Tobacco: Never Alcohol Use Standard Drinks/Week Comments Yes 1 (1 standard drink = 0.6 oz pure alcohol) wine , 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 No / Unsure 11/20/2022 2:29 PM MACHINIST LINOTYPE documented as of this encounter Plan of Treatment Not on file documented as of this encounter Procedures Procedure Name Priority Date/Time Associated Diagnosis Comments RENAL FUNCTION PANEL (RFP) Routine 12/01/2022 9:25 AM MACHINIST LINOTYPE Chronic kidney disease, unspecified ADJUSTED CALCIUM*[facility] Routine 12/01/2022 9:25 AM MACHINIST LINOTYPE Chronic kidney disease, unspecified documented in this encounter Results * ADJUSTED CALCIUM*[facility] (12/01/2022 9:25 AM MACHINIST LINOTYPE) ADJUSTED CALCIUM 9.6 8.8 - 10.0 mg/dL 12/01/2022 1:00 PM [facility] Blood Venipuncture / Unknown 12/01/2022 9:25 AM MACHINIST LINOTYPE 12/01/2022 10:22 AM MACHINIST LINOTYPE us Brian Madsen MD CHEMISTRY ORDERABLES Final Result [address] [address] * (ABNORMAL) RENAL FUNCTION PANEL (RFP) (12/01/2022 9:25 AM MACHINIST LINOTYPE) SODIUM 140 133 - 145 mmol/L 12/01/2022 12:34 PM [facility] POTASSIUM 4.3 3.5 - 5.1 mmol/L 12/01/2022 12:34 PM [facility] CHLORIDE 107 96 - 108 mmol/L 12/01/2022 12:34 PM [facility] CO2, VENOUS 29 21 - 32 mmol/L 12/01/2022 12:34 PM [facility] ANION GAP 8.3(L) 10.0 - 20.0 mmol/L 12/01/2022 12:34 PM [facility] GLUCOSE 226(H) 83 - 110 mg/dL 12/01/2022 12:34 PM [facility] Comment: Venipuncture should occur prior to administration of sulfasalazine and/or sulfapyridine. Glucose can be falsely depressed after administration of sulfasalazine, and falsely elevated with administration of sulfapyridine. BUN 21(H) 6 - 19 mg/dL 12/01/2022 12:34 PM [facility] CREATININE, BLOOD 1.20 0.50 - 1.30 mg/dL 12/01/2022 12:34 PM [facility] BUN/CREATININE RATIO 18 12 - 20 ratio 12/01/2022 12:34 PM [facility] ALBUMIN 2.9(L) 3.4 - 4.8 g/dL 12/01/2022 12:34 PM [facility] CALCIUM 8.7(L) 8.8 - 10.0 mg/dL 12/01/2022 12:34 PM [facility] Comment:Calcium low. Correct ed calcium to follow. PHOSPHORUS 3.7 2.6 - 4.5 mg/dL 12/01/2022 12:34 PM [facility] GFR, ESTIMATED 64 12/01/2022 12:34 PM [facility] Comment: This eGFR is calculated using [...] Blood Venipuncture / Unknown 12/01/2022 9:25 AM MACHINIST LINOTYPE 12/01/2022 10:22 AM MACHINIST LINOTYPE us Brian Madsen MD CHEMISTRY ORDERABLES Final Result [facility] [address] [place] [address] documented in this encounter Visit Diagnoses Diagnosis Chronic kidney disease, unspecified documented in this encounter Additional Health Concerns Assessment Noted Time PHQ-9 Depression Total Score: 0 08/05/20 21 3:00 PM CDT documented as of this encounter Care Teams Electronics Production Supervisor Relationship Specialty Start Date End Date Nicho Posada MD [address] [employer] [address] [place] [address] PCP - General Family Medicine 01/08/22 María Ochoa APRN, ZIGZAG TOPSTITCHER [address] [place] [address] Referring Provider Advanced Practice Nurse 05/01/21 Gregorio Garza DPM [address] [place] [address] Consulting Physician Podiatry 07/03/22 documented as of this encounter
--- OUTSIDE RECORDS SUMMARY | 2025-01-04 14:10 | XMS_ITS | Encounter Summary ---
Author Organization [facility][1] Address [address] [place] [address] Phone Care Team Providers Care Purchasing Manager/Sales Name Role Phone Mark Mai DPM Unavailable Unavailab María Haile INSTRUMENTATION ENGINEERING TECHNICIAN, DESIGN CHECKER Unavailable [phone] Nicho Posada MD Primary Care Provider [phone] Gregorio Garza DPM Unavailable Unavailable Reason for Visit * Reason Comments Medication Refill Encounter Details Date Type Department Care Team (Late st Contact Info) Description 02/21/2022 Refill [facility] [address] [place] [address] Brian Madsen MD [facility] [place] [address] Medication Refill Social History Tobacco Use Types Packs/Day Years Used Date Smoking Tobacco: Never Smokeless Tobacco: Never Alcohol Use Standard Drinks/Week Comments Yes 1 (1 standard drink = 0.6 oz pur e alcohol) Is Technician PHQ-2 Answer Date Recorded Total Score - [...] documented as of this encounter Care Teams Purchasing Manager/Sales Relationship Specialty Start Date End Date Nicho Posada MD [facility] [employer] [address] [place] [address] PCP - General Family Medicine 01/08/22 Mark Mai DPM Consulting Physician Podiatry 07/25/16 07/31/22 María Ochoa, TYRA, DESIGN CHECKER [address] [place] [address] Referring Provider Advanced Practice Nurse 05/01/21 Gregorio Garza DPM [facility] [address] [employer] [address] [place] [address] Consulting Physician Podiatry 07/03/22 documented as of this encounter
--- OUTSIDE RECORDS SUMMARY | 2025-01-04 14:10 | XMS_ITS | Clinical Summary ---
Author Organization [facility] Address [facility] [place] [address] Care Team Providers Care Environmental Intern Name Role Phone Puma Coronado MD Unavailable Edu Saavedra MD Unavailable Unavailab Alexis Deras MD Unavailable [phone] Familia Ford APRN Unavailable [phone] Nicho Posada MD Primary Care Provider [phone] Dhaval Dyer MD Unavailable Allergies No known [...] Misc CHANGE SENSOR EVERY 10 DAYS 04/12/20 23 Active Continuous Blood Gluc Transmit (DEXCOM G6 TRANSMITTER) Misc CHANGE TRANSMITTER EVERY 3 MONTHS 03/02/20 23 Active B-D UF III MINI PEN NEEDLES 31G X 5 MM Misc 06/21/20 Active insulin degludec (TRESIBA FLEXTOUCH) 200 UNIT/ML injection (PEN) Inject 18 Units into the skin daily. 04/04/20 Active losartan (COZAAR) 100 MG tablet Take 1 tablet (100 mg total) by mouth daily. 08/27/20 23 Active LORazepam (ATIVAN) 2 MG tabletIndicat ions:Anxiety [...] ML Misc 2 (two) times daily. 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 10/29/2022 Chronic venous hypertension (idiopathic) with ulcer of right lower extremity ([facility]) 10/29/2022 Syncope 10/16/2022 Carotid stenosis 04/24/2022 Vitamin D deficiency 07/16/2021 Microalbuminuria 07/16/2021 Diabetic nephropathy associa vinay with type 2 diabetes mellitus ([facility]) 05/28/2021 Bilateral leg edema 05/28/2021 PVC (premature ventricular contraction) 02/28/20 21 Syncope, unspecified syncope type 02/27/2021 Systolic murmur 01/17/2021 PVC (pulmonary venous congestion) 01/17/2021 Onychocryptosis 08/16/2020 Chest pain 07/11/2019 CKD (chronic kidney disease) stage 3, GFR 30-59 ml/min ([facility]) 07/11/2019 [place] or callus 10/14/2018 Type 2 diabetes mellitus wit h peripheral angiopathy ([facility]) 10/14/2018 Nuclear sclerotic cataract of left eye 8 Overview (10/25/2018): Overview: RIGHT CATARACT SURGERY [facility] DIABETIC Everett's esophagus without dysplasia 03/01/2018 Overview (10/14/2018): Description: 02/19/2018, Dr. Saavedra. Diabetic polyneuropathy asso ciated with type 2 diabetes mellitus ([facility]) 02/25/2018 Occult blood in stools 02/19/2018 Unintentional weight loss 02/19/2018 Family history of esophageal cancer 02/19/2018 Paronychia of great toe, right 10/15/2017 Skin ulceration ([facility]) 04/30/2017 Onychogryposis 08/21/2016 Stroke ([facility]) Pneumonia Obesity Iron deficiency anemia Hypertension Dyslipidemia Diabetes ([facility]) Coronary artery disease Resolved Problems Problem Noted Date Diagnosed Date Resolved Date Hospital discharge follow-up 11/24/2022 12/01/2022 Encounter for screening colonoscopy 02/19/2018 07/27/2020 Encounter for preventive health examination 12/30/2017 07/27/2020 Right carotid bruit 10/27/20 23 Encounters Date Type Department Care Team Description 12/16/2024 2:00 PM LINEN AIDE Office Visit [facility] [address] [place] [address] Familia Ford, UTILITY BILL COMPLAINTS INVESTIGATOR Follow Up (CAD, CS, SND (PPM), HTN, DLD) 12/16/2024 12:57 PM LINEN AIDE - 12/16/2024 11:59 PM LINEN AIDE Hospital Encounter [facility] Vascular Ultrasound - [facility] [address] [place] [address] Familia Ford, UTILITY BILL COMPLAINTS INVESTIGATOR Discharge Disposition: Home or Self Care (Routine Discharge) 12/16/2024 Travel 11/25/2024 1:30 PM LINEN AIDE [facility] [address] [place] [address] Servando Kumar, DPM [place]/ Callous Removal; Hammer Toe 10/21/2024 10:45 AM LINEN AIDE [facility] [address] [place] [address] Servando Kumar, DPM Hammer Toe; Foot Ulcer 10/19/2024 8:00 AM LINEN AIDE Allied Health/Nurse Visit [facility] [address] [place] [address] Dhaval Dyer MD from Last 3 Months Immunizations Name Administration [...] Sex Assigned at Male 12/16/2024 1:31 PM LINEN AIDE Legal Sex Male 9:51 PM CDT Gender Identity Male 02/24/2022 7:56 AM CDT Sexual Orientation Not on file Last Filed Vital Signs Vital Sign Reading Time Taken Comments Blood Pressure 132/84 12/16/2024 1:39 PM LINEN AIDE Pulse 97 12/16/2024 1:39 PM LINEN AIDE Temperature 36.4 C (97.5 F) 05/08/2023 6:12 AM CDT Respiratory Rate 16 12/16/2024 1:39 PM LINEN AIDE Oxygen Saturation 95% 12/16/2024 1:39 PM LINEN AIDE Inhaled Oxygen Concentration - - Weight 105.9 kg (233 lb 6.4 oz) 12/16/2024 1:39 PM LINEN AIDE Height 181.6 cm (5' 11.5 ) 12/16/2024 1:39 PM CS T Body Mass Index 32.1 12/16/2024 1:39 PM LINEN AIDE Plan of Treatment Upcoming Encounters Date Type Department Care Team (Late st Contact Info) Description 02/02/2025 3:30 AM CDT [facility] [address] [place] [phone] Dhaval Dyer MD [address] [place] [address] 02/10/2025 11:15 AM CDT [facility] [address] [place], [place] [address] Servando Kumar, DPM [address] [address] Health Maintenance Due Date Last [...] (#1) 2024 08/09/2020, 08/19/2019, 09/11/2016 PHQ-2 (Physician [place]) 11/16/2024 Colorectal Cancer Screening Colonoscopy (10 Years) [...] this topic Medical Devices Implanted Type Area Skein Yard Drier Device Identifier Shelf Expiration Date Model / Serial / Lot Medtronic His/Lbb- 023 Implanted:04/17 by Dhaval Dyer MD (Quantity not on file) Lead Implant [employer] 03/05/2025 [id number] / [id number] / Medtronic Ra-05/08/2023 Implanted:04/17 by Dhaval Dyer MD (Quantity not on file) Lead Implant [employer] 02/03/2025 [id number] / [id number] / Medtronic Delma Mri -05/08/2023 Implanted:04/17 by Dhaval Dyer MD (Quantity not on file) Pacemaker [employer] 10/13/2024 [id number] / [id number] / Description:DX:SND Procedures Procedure Name Priority Date/Time Associated Diagnosis Comments USV CAROTID DUPLEX VEE Routine 12/16/2024 1:27 PM LINEN AIDE Bilateral carotid artery stenosis COLONOSCOPY Routine 02/19/2018 12:00 AM CDT from Last 3 Months or Most Recently Relevant to Health Maintenance Results * USV CAROTID DUPLEX VEE (12/16/2024 1:27 PM LINEN AIDE) Anatomical Region Laterality Modality Neck Ultrasound 12/16/2024 1:01 PM LINEN AIDE Narrative 12/16/2024 2:29 PM LINEN AIDE SJS Vascular Report Pat.Name: ANCA HUGHES Pat.ID: [id number] .Date: 12/16/2024 Refer.MD: FAMILIA FORD Exam Time: 1:01:00 PM Study Type:PVI CAROTID SCAN - BILATERAL Height: 72 in Age: 4 1950,74Y Sex: M Sonogrphr: SUKHWINDER Wade Pat. Stat.:Outpatient ICD - 9: I65.23 Carotid occlusion/Stenosis bilateral CPT - 4: 70467 Carotid Duplex Reason for Study:Carotid Stenosis Race: [...] S Vascular Report Pat.Name: ANCA HUGHES Pat.ID: [id number] .Date: 12/16/2024 Refer.MD: FAMILIA FORD Exam Time: 1:01:00 PM Study Type:PVI CAROTID SCAN - BILATERAL Height: 72 in Age: 4 1950,74Y Sex: M Sonogrphr: SUKHWINDER Wade Pat. Stat.:Outpatient ICD - 9: I65.23 Carotid occlusion/Stenosis bilateral CPT - 4: 03780 Carotid Duplex Reason for Study:Carotid Stenosis Race: [...] Maxwell Lezama M.D. us Familia N Liliana UTILITY BILL COMPLAINTS INVESTIGATOR US VASC Final R esult * Colonoscopy (02/19/2018 12:00 AM CDT) 02/19/2018 02/19/2018 Narrative [facility] TO EPIC CONVERSION - 02/19/2018 12:00 AM CDT Documented hx of procedure Procedure Note Md Generic Conversion, - 09/19/2018 Documented hx of procedure Generic Conversion Md [facility] PROCEDURE ORDERABLES Final Result [facility] TO EPIC CONVERSION from Last 3 Months or Most Recently Relevant to Health Maintenance Insurance Advance Directives Documents on File Type Date Recorded Patient Cold Mill Inspector Expl anation Advance Directive (Activated) 12/09/2022 3:17 PM POLST Advance Directives and Livin g Will 11/13/2022 12:18 PM POLST Advance Directive (Activated) 10/28/2022 9:57 AM POLST * Full Code (Latest Code Status on File) Date Activated Date Inactivated Comments 10/29/2022 10:23 AM 05/08/2023 5:34 AM * Full Code Date Activated Date Inactivated Comments 10/16/2022 4:00 PM 10/24/2022 12:19 AM Care Teams Environmental Intern Relationship Specialty Start Date End Date Nicho Posada MD [address] [place] [address] PCP - General FAMILY PRACTICE 02/21/22 Puma Coronado MD [address] [place] [address] Mikael Range Feeder CARDIOVASCULAR DISEASE 01/28/18 Edu Saavedra MD [address] [address] Consulting Physician SURGERY 01/28/18 Alexis Bush MD [address] [place] [address] Consulting Physician INTERVENTIONAL CARDIOLOGY 01/09/21 Familia Ford APRN [address] [place] [address] [id number] Nurse Practitioner NURSE PRACTITIONER 01/09/21 Dhaval Dyer MD [address] [place] [id number] Consulting Physician CLINICAL CARDIAC ELECTROPHYSIOLOGY 05/08/23
[2025-01-04 20:55] LABS: Alanine Aminotransferase 31 U/L (6-50); Albumin Level 4.1 g/dL (3.5-5.1); Alkaline Phosphatase 78 U/L (38-126); Anion Gap 11 mmol/L (4-12); Aspartate Amino Transferase 56 U/L (17-59); Bilirubin,Total 0.6 mg/dL (0.2-1.3); Blood Urea Nitrogen 46 mg/dL (9-20); Calcium 9.5 mg/dL (8.4-10.2); Carbon Dioxide 27 mmol/L (22-30); Chloride 102 mmol/L (98-107); Estimated Glomerular Filt Rate 46; Glucose 107 mg/dL (65-110); Potassium 5.3 mmol/L (3.4-5.0); Sodium 140 mmol/L (137-145)
[2025-01-04 21:17] LABS: Hemoglobin A1C 6.7 % (<5.7)
== END 2025-01-04 14:08 | disposition home or self-care (01) ==
LOC: ANHGOSHLAB 14:08
PROVIDERS: PCP Family Medicine; Visit Provider Family Medicine
DX: E11.9 Type 2 diabetes mellitus without complications (principal)
CPT/HCPCS: 36415; 80053; 83036

== ENCOUNTER 2025-01-09 13:35 | Outpatient (CLI) | payer BC, SELFPAY ==
--- OUTSIDE RECORDS SUMMARY | 2025-01-09 15:33 | XMS_ITS | Encounter Summary ---
Author Organization [facility] Address [address] [place] [address] Phone Care Team Providers Care Hand Spinner Name Role Phone Mark Mai DPM Unavailable Unavailab María Haile CONVICT GUARD, TECHNICAL SERVICES SPECIALIST Unavailable [phone] Nicho Posada MD Primary Care Provider [phone] Gregorio Garza DPM Unavailable Unavailable Reason for Visit * Reason Comments Medication Refill Encounter Details Date Type Department Care Team (Late st Contact Info) Description 02/21/2022 Refill [facility] [address] [place] [address] Brian Madsen MD [facility]note 3] [place] [address] Medication Refill Social History Tobacco Use Types Packs/Day Years Used Date Smoking Tobacco: Never Smokeless Tobacco: Never Alcohol Use Standard Drinks/Week Comments Yes 1 (1 standard drink = 0.6 oz pur e alcohol) Fish Cutter PHQ-2 Answer Date Recorded Total Score - [...] documented as of this encounter Care Teams Hand Spinner Relationship Specialty Start Date End Date Nicho Posada MD [facility] [place] [address] PCP - General Family Medicine 01/08/22 Mark Mai DPM Consulting Physician Podiatry 07/25/16 07/31/22 María Ochoa, TYRA, TECHNICAL SERVICES SPECIALIST [address] [place] [address] Referring Provider Advanced Practice Nurse 05/01/21 Gregorio Garza DPM [facility] [place] [address] Consulting Physician Podiatry 07/03/22 documented as of this encounter
--- OUTSIDE RECORDS SUMMARY | 2025-01-09 15:33 | XMS_ITS | Encounter Summary ---
Author Organization [facility] Address [address] [place] [address] Phone Care Team Providers Care Fishing Vessel Operator Name Role Phone María Ochoa APRN, AMA Unavailable [phone] Nicho Posada MD Primary Care Provider [phone] Gregorio Garza DPM Unavailable Unavailable Encounter Details Date Type Department Care Team (Late st Contact Info) Description 10/30/2022 Lab Requisition [facility] Services [address] [place] [address] Raghavendra Kimble MD [address] [place] [address] Syncope and collapse Social History Tobacco Use Types Packs/Day Years Used Date Smoking Tobacco: Never Smokeless Tobacco: Never Alcohol Use Standard Drinks/Week Comments Yes 1 (1 standard drink = 0.6 oz pure alcohol) 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 No / Unsure 10/29/2022 10:33 AM COMMERCIAL LINES ACCOUNT ASSISTANT documented as of this encounter Plan of Treatment Not on file documented as of this encounter Procedures Procedure Name Priority Date/Time Associated Diagnosis Comments CBC WITH AUTO DIFFERENTIAL Routine 10/30/2022 8:15 AM COMMERCIAL LINES ACCOUNT ASSISTANT Syncope and collapse COMPLETE BLOOD COUNT (CBC) WITH DIFF Routine 10/30/2022 8:15 AM COMMERCIAL LINES ACCOUNT ASSISTANT Syncope and collapse BASIC METABOLIC PANEL W/ CALCIUM TOTAL Routine 10/30/2022 8:15 AM COMMERCIAL LINES ACCOUNT ASSISTANT Syncope and collapse ALBUMIN Routine 10/30/2022 8:15 AM COMMERCIAL LINES ACCOUNT ASSISTANT Syncope and collapse ADJUSTED CALCIUM*[facility]C Routine 10/30/2022 8:15 AM COMMERCIAL LINES ACCOUNT ASSISTANT Syncope and collapse documented in this encounter Results * (ABNORMAL) ALBUMIN (10/30/2022 8:15 AM COMMERCIAL LINES ACCOUNT ASSISTANT) ALBUMIN 2.5(L) 3.4 - 4.8 g/dL 10/30/2022 12:02 PM COMMERCIAL LINES ACCOUNT ASSISTANT [facility] Blood Venipuncture / Unknown 10/30/2022 8:15 AM COMMERCIAL LINES ACCOUNT ASSISTANT 10/30/2022 10:36 AM COMMERCIAL LINES ACCOUNT ASSISTANT us Raghavendra Kimble MD CHEMISTRY ORDERABLES Final Resul t Performing Organization Address City/State/[facility] Co de Phone Number [facility] [address] [place] [address] * ADJUSTED CALCIUM*SAMC (10/30/2022 8:15 AM COMMERCIAL LINES ACCOUNT ASSISTANT) ADJUSTED CALCIUM 9.9 8.8 - 10.0 mg/dL 10/30/2022 12:03 PM COMMERCIAL LINES ACCOUNT ASSISTANT [facility] Blood Venipuncture / Unknown 10/30/2022 8:15 AM COMMERCIAL LINES ACCOUNT ASSISTANT 10/30/2022 10:36 AM COMMERCIAL LINES ACCOUNT ASSISTANT us Raghavendra Kimble MD CHEMISTRY ORDERABLES Final Resul t [facility] [address] [place] [address] * (ABNORMAL) CBC WITH AUTO DIFFERENTIAL (10/30/2022 8:15 AM [facility]) WBC 9.16 3.90 - 11.00 10(3)/mcL 10/30/2022 11:41 AM [facility] RBC 4.06(L) 4.20 - 5.80 10(6)/mcL 10/30/2022 11:41 AM [facility] HEMOGLOBIN (HGB) 11.3(L) 12.6 - 17.4 g/dL 10/30/2022 11:41 AM [facility] HEMATOCRIT (HCT) 35.3(L) 39.8 - 52.2 % 10/30/2022 11:41 AM [facility] MCV 86.9 80.0 - 100.0 fL 10/30/2022 11:41 AM [facility] MCH 27.8 26.5 - 33.9 pg 10/30/2022 11:41 AM [facility] MCHC 32.0 31.5 - 36.0 g/dL 10/30/2022 11:41 AM [facility] PLATELET COUNT 345 140 - 445 10(3)/mcL 10/30/2022 11:41 AM [facility] MPV 9.2 >=0.0 fL 10/30/2022 11:41 AM [facility] RDW 14.0 12.0 - 15.0 % 10/30/2022 11:41 AM [facility] NEUTROPHILS 72.2 % 10/30/2022 11:41 AM [facility] LYMPHOCYTES 11.7 % 10/30/2022 11:41 AM [facility] MONOCYTES 11.1 % 10/30/2022 11:41 AM [facility] EOSINOPHILS 3.7 % 10/30/2022 11:41 AM [facility] IMMATURE GRANULOCYTE % 0.9 % 10/30/2022 11:41 AM [facility] BASOPHILS 0.4 % 10/30/2022 11:41 AM [facility] ABSOLUTE NEUTROPHILS 6.61 1.40 - 7.30 10(3)/[facility] 10/30/2022 11:41 AM [facility] ABSOLUTE LYMPHOCYTES 1.07(L) 1.30 - 2.90 10(3)/mcL 10/30/2022 11:41 AM [facility] ABSOLUTE MONOCYTES 1.02(H) 0.10 - 0.80 10(3)/mcL 10/30/2022 11:41 AM [facility] ABSOLUTE EOSINOPHIL 0.34(H) 0.00 - 0.30 10(3)/[facility] 10/30/2022 11:41 AM [facility] ABSOLUTE BASOPHILS 0.04 0.00 - 0.10 10(3)/[facility] 10/30/2022 11:41 AM [facility] ABSOLUTE IMMATURE GRANULOCYTE 0.08 0.00 - 0.10 10 (3) mcL. 10/30/2022 11:41 AM [facility] NRBC PER 100 WBC 0.0 0.0 - 0.0 % 10/30/2022 11:41 AM [facility] ABSOLUTE NRBC 0.00 10 (3) mcL. 10/30/2022 11:41 AM [facility] Blood Venipuncture / Unknown 10/30/2022 8:15 AM [facility] 10/30/2022 10:36 AM [facility] us Raghavendra Shyanne [facility] HEMATOLOGY ORDERABLES Final Resu lt [facility] [address] [place] [address] * (ABNORMAL) BASIC METABOLIC PANEL W/ CALCIUM TOTAL (10/30/2022 8:15 AM [facility]) SODIUM 138 133 - 145 mmol/L 10/30/2022 11:55 AM [facility] POTASSIUM 4.3 3.5 - 5.1 mmol/L 10/30/2022 11:55 AM [facility] CHLORIDE 108 96 - 108 mmol/L 10/30/2022 11:55 AM [facility] CO2, VENOUS 24 21 - 32 mmol/L 10/30/2022 11:55 AM [facility] ANION GAP 10.3 10.0 - 20.0 mmol/L 10/30/2022 11:55 AM [facility] GLUCOSE 243(H) 83 - 110 mg/dL 10/30/2022 11:55 AM [facility] BUN 23(H) 6 - 19 mg/dL 10/30/2022 11:55 AM [facility] CREATININE, BLOOD 1.40(H) 0.50 - 1.30 mg/dL 10/30/2022 11:55 AM [facility] BUN/CREATININE RATIO 16 12 - 20 ratio 10/30/2022 11:55 AM [facility] CALCIUM 8.7(L) 8.8 - 10.0 mg/dL 10/30/2022 11:55 AM [facility] Comment:Calcium low. Correct ed calcium to follow. GFR, ESTIMATED 53 10/30/2022 11:55 AM [facility] Comment: This eGFR is calculated using [...] Blood Venipuncture / Unknown 10/30/2022 8:15 AM COMMERCIAL LINES ACCOUNT ASSISTANT 10/30/2022 10:36 AM [facility] us Raghavendra Kimble MD CHEMISTRY ORDERABLES Final Resul t [facility] [address] [place] [address] documented in this encounter Visit Diagnoses Diagnosis Syncope and collapse documented in this encounter Additional Health Concerns Assessment Noted Time PHQ-9 Depression Total Score: 0 08/05/20 3:00 PM CDT documented as of this encounter Care Teams Fishing Vessel Operator Relationship Specialty Start Date End Date Nicho Posada MD [facility] [place] [address] PCP - General Family Medicine 01/08/22 María Ochoa APRN, SWEET DOUGH MIXER [address] [place] [address] Referring Provider Advanced Practice Nurse 05/01/21 Gregorio Garza DPM [address] [place] [address] Consulting Physician Podiatry 07/03/22 documented as of this encounter
--- OUTSIDE RECORDS SUMMARY | 2025-01-09 15:33 | XMS_ITS | Encounter Summary ---
Author Organization [facility] Address [address] [place] [address] Phone Care Team Providers Care Taxonomy Teacher Name Role Phone María Ochoa APRN, INFORMATION RESOURCES MANAGER Unavailable [phone] Nicho Posada MD Primary Care Provider [phone] Gregorio Garza DPM Unavailable Unavailable Encounter Details Date Type Department Care Team (Late st Contact Info) Description 10/31/2022 Lab Requisition [facility] Laboratory Services [address] [place] [address] Brian Madsen MD [address] [place] [address] Chronic kidney disease, stage 3 unspecified (HCC) Social History Tobacco Use Types Packs/Day Years Used Date Smoking Tobacco: Never Smokeless Tobacco: Never Alcohol Use Standard Drinks/Week Comments Yes 1 (1 standard drink = 0.6 oz pure alcohol) 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 No / Unsure 10/29/2022 10:33 AM AUDIO VISUAL PROJECT MANAGER documented as of this encounter Plan [...] documented as of this encounter Care Teams Taxonomy Teacher Relationship Specialty Start Date End Date Nicho Posada MD [facility] [place] [address] PCP - General Family Medicine 01/08/22 María Ochoa APRN, INFORMATION RESOURCES MANAGER [address] [place] [address] Referring Provider Advanced Practice Nurse 05/01/21 Gregorio Garza DPM [facility] [employer] [address] [place] [address] Consulting Physician Podiatry 07/03/22 documented as of this encounter
--- OUTSIDE RECORDS SUMMARY | 2025-01-09 15:33 | XMS_ITS | Encounter Summary ---
Author Organization [facility] Address [address] [place] [address] Phone Care Team Providers Care Compressor Station Operator Name Role Phone María Ochoa APRN, INSPECTOR PRINTED CIRCUIT BOARDS Unavailable [phone] Nicho Posada MD Primary Care Provider [phone] Gregorio Garza DPM Unavailable Unavailable Encounter Details Date Type Department Care Team (Late st Contact Info) Description 11/05/2022 Lab Requisition [facility] Laboratory Services [address] [place] [address] Brian Madsen MD [address] [place] [address] Chronic kidney disease, stage 3 unspecified (HCC) Social History Tobacco Use Types Packs/Day Years Used Date Smoking Tobacco: Never Smokeless Tobacco: Never Alcohol Use Standard Drinks/Week Comments Yes 1 (1 standard drink = 0.6 oz pure alcohol) 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 No / Unsure 10/29/2022 10:33 AM PRIZE COORDINATOR documented as of this encounter Plan of Treatment Not on file documented as of this encounter Procedures Procedure Name Priority Date/Time Associated Diagnosis Comments BASIC METABOLIC PANEL W/ CALCIUM TOTAL Routine 11/05/2022 7:45 AM PRIZE COORDINATOR Chronic kidney disease, stage 3 unspecified (HCC) documented in this encounter Results * (ABNORMAL) BASIC METABOLIC PANEL W/ CALCIUM TOTAL (11/05/2022 7:45 AM PRIZE COORDINATOR) SODIUM 136 133 - 145 mmol/L 11/05/2022 10:40 AM [facility] POTASSIUM 4.7 3.5 - 5.1 mmol/L 11/05/2022 10:40 AM [facility] CHLORIDE 103 96 - 108 mmol/L 11/05/2022 10:40 AM [facility] CO2, VENOUS 27 21 - 32 mmol/L 11/05/2022 10:40 AM [facility] ANION GAP 10.7 10.0 - 20.0 mmol/L 11/05/2022 10:40 AM [facility] GLUCOSE 225(H) 83 - 110 mg/dL 11/05/2022 10:40 AM [facility] BUN 31(H) 6 - 19 mg/dL 11/05/2022 10:40 AM [facility] CREATININE, BLOOD 1.40(H) 0.50 - 1.30 mg/dL 11/05/2022 10:40 AM [facility] BUN/CREATININE RATIO 22(H) 12 - 20 ratio 11/05/2022 10:40 AM [facility] CALCIUM 8.9 8.8 - 10.0 mg/dL 11/05/2022 10:40 AM [facility] GFR, ESTIMATED 53 11/05/2022 10:40 AM [facility] Comment: This eGFR is calculated [...] Blood Venipuncture / Unknown 11/05/2022 7:45 AM PRIZE COORDINATOR 11/05/2022 9:34 AM PRIZE COORDINATOR us Brina Madsen MD CHEMISTRY ORDERABLES Final Result Performing Organization Address City/State/[facility] Co de Phone Number [facility] [address] [place] [address] documented in this encounter Visit Diagnoses Diagnosis Chronic kidney disease, stage 3 unspecified (HCC) documented in this encounter Additional Health Concerns Assessment Noted Time PHQ-9 Depression Total Score: 0 08/05/20 21 3:00 PM CDT documented as of this encounter Care Teams Compressor Station Operator Relationship Specialty Start Date End Date Nicho Posada MD [facility] [employer] [address] [place] [address] PCP - General Family Medicine 01/08/22 María Ochoa APRN, INSPECTOR PRINTED CIRCUIT BOARDS [address] [place] [address] Referring Provider Advanced Practice Nurse 05/01/21 Gregorio Garza DPM [address] [place] [address] Consulting Physician Podiatry 07/03/22 documented as of this encounter
--- OUTSIDE RECORDS SUMMARY | 2025-01-09 15:33 | XMS_ITS | Encounter Summary ---
Author Organization [facility] Address [address] [place] [address] Phone Care Team Providers Care Data Communications Engineer Name Role Phone María Ochoa APRN, MOSS GATHERER Unavailable [phone] Nicho Posada MD Primary Care Provider [phone]- [phone] Gregorio Garza DPM Unavailable Unavailable Encounter Details Date Type Department Care Team (Latest Contact Info) Description 10/31/2022 Transcribe Orders [facility] [address] [place] [address] Valeriy Flores APRN, MOSS GATHERER [address] [place] [address] Hypertension, unspecified type (Primary Dx) Social History Tobacco Use Types Packs/Day Years Used Date Smoking Tobacco: Never Smokeless Tobacco: Never Alcohol Use Standard Drinks/Week Comments Yes 1 (1 standard drink = 0.6 oz pure alcohol) 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 No / Unsure 10/29/2022 10:33 AM TAIL DOGGER documented as of this encounter Plan of [...] documented as of this encounter Care Teams Data Communications Engineer Relationship Specialty Start Date End Date Nicho Posada MD [address] [place] [address] PCP - General Family Medicine 01/08/22 María Ochoa APRN, MOSS GATHERER [address] [place] [address] Referring Provider Advanced Practice Nurse 05/01/21 Gregorio Garza DPM [address] [place] [address] Consulting Physician Podiatry 07/03/22 documented as of this encounter
--- OUTSIDE RECORDS SUMMARY | 2025-01-09 15:33 | XMS_ITS | Encounter Summary ---
Author Organization [facility] Address [address] [place] [address] Phone Care Team Providers Care Log Clerk Name Role Phone María Ochoa APRN, EMERGENCY ROOM CLERK Unavailable [phone] Nicho Posada MD Primary Care Provider [phone]- [phone] Gregorio Garza DPM Unavailable Unavailable Encounter Details Date Type Department Care Team (Late st Contact Info) Description 10/31/2022 Lab Requisition [facility] Laboratory Services [address] [place] [address] Brian Madsen MD [address] [place] [address] Chronic kidney disease, stage 3 unspecified (HCC) Social History Tobacco Use Types Packs/Day Years Used Date Smoking Tobacco: Never Smokeless Tobacco: Never Alcohol Use Standard Drinks/Week Comments Yes 1 (1 standard drink = 0.6 oz pure alcohol) 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 No / Unsure 10/29/2022 10:33 AM ASSISTANT CREDIT MANAGER documented as of this encounter Plan of Treatment Not on file documented as of this encounter Procedures Procedure Name Priority Date/Time Associated Diagnosis Comments RENAL FUNCTION PANEL (RFP) Routine 10/31/2022 8:25 AM ASSISTANT CREDIT MANAGER Chronic kidney disease, stage 3 unspecified (HCC) [facility] Routine 10/31/2022 8:25 AM ASSISTANT CREDIT MANAGER Chronic kidney disease, stage 3 unspecified (HCC) documented in this encounter Results * ADJUSTED CALCIUM*[facility] (10/31/2022 8:25 AM ASSISTANT CREDIT MANAGER) ADJUSTED CALCIUM 10.0 8.8 - 10.0 mg/dL 10/31/2022 11:32 AM [facility] Blood Venipuncture / Unknown 10/31/2022 8:25 AM ASSISTANT CREDIT MANAGER 10/31/2022 9:54 AM ASSISTANT CREDIT MANAGER us Brian Madsen MD CHEMISTRY ORDERABLES Final Result [place] [id number] [place] [address] * (ABNORMAL) RENAL FUNCTION PANEL (RFP) (10/31/2022 8:25 AM ASSISTANT CREDIT MANAGER) SODIUM 136 133 - 145 mmol/L 10/31/2022 11:31 AM [facility] POTASSIUM 4.7 3.5 - 5.1 mmol/L 10/31/2022 11:31 AM [facility] CHLORIDE 106 96 - 108 mmol/L 10/31/2022 11:31 AM [facility] CO2, VENOUS 24 21 - 32 mmol/L 10/31/2022 11:31 AM [facility] ANION GAP 10.7 10.0 - 20.0 mmol/L 10/31/2022 11:31 AM [facility] GLUCOSE 275(H) 83 - 110 mg/dL 10/31/2022 11:31 AM [facility] Comment: Venipuncture should occur prior to administration of sulfasalazine and/or sulfapyridine. Glucose can be falsely depressed after administration of sulfasalazine, and falsely elevated with administration of sulfapyridine. BUN 23(H) 6 - 19 mg/dL 10/31/2022 11:31 AM [facility] CREATININE, BLOOD 1.40(H) 0.50 - 1.30 mg/dL 10/31/2022 11:31 AM [facility] BUN/CREATININE RATIO 16 12 - 20 ratio 10/31/2022 11:31 AM [facility] ALBUMIN 2.4(L) 3.4 - 4.8 g/dL 10/31/2022 11:31 AM [facility] CALCIUM 8.7(L) 8.8 - 10.0 mg/dL 10/31/2022 11:31 AM [facility] Comment:Calcium low. Correct ed calcium to follow. PHOSPHORUS 3.5 2.6 - 4.5 mg/dL 10/31/2022 11:31 AM [facility] GFR, ESTIMATED 53 10/31/2022 11:31 AM [facility] Comment: This eGFR is calculated [...] Blood Venipuncture / Unknown 10/31/2022 8:25 AM ASSISTANT CREDIT MANAGER 10/31/2022 9:54 AM ASSISTANT CREDIT MANAGER us Brian Madsen MD CHEMISTRY ORDERABLES Final Result [facility] [address] [place] [address] documented in this encounter Visit Diagnoses Diagnosis Chronic kidney disease, stage 3 unspecified (HCC) documented in this encounter Additional Health Concerns Assessment Noted Time PHQ-9 Depression Total Score: 0 08/05/20 21 3:00 PM CDT documented as of this encounter Care Teams Log Clerk Relationship Specialty Start Date End Date Nicho Posada MD [facility] [employer] [address] [place] [address] PCP - General Family Medicine 01/08/22 María Ochoa APRN, EMERGENCY ROOM CLERK [address] [place] [address] Referring Provider Advanced Practice Nurse 05/01/21 Gregorio Garza DPM [address] [facility] [employer] [address] [place] [address] Consulting Physician Podiatry 07/03/22 documented as of this encounter
--- OUTSIDE RECORDS SUMMARY | 2025-01-09 15:33 | XMS_ITS | Clinical Summary ---
Author Organization [facility] Address [address] [facility] [address] [place] [address] Phone Care Team Providers Care Supervisor Drilling And Shooting Name Role Phone María Ochoa APRN, AMA Unavailable [phone] Nicho Posada MD Primary Care Provider [phone] Gregorio Garza DPM Unavailable Unavailable Allergies No [...] Toenail avulsion, subsequent encounter 1 Onychocryptosis 08/16/2020 senior living (current) use of insulin 07/11/2019 Chest pain 07/11/2019 CKD (chronic kidney disease) stage 3, GFR 30-59 ml/min 07/11/2019 Nuclear sclerotic cataract of left eye 8 Overview (07/27/2018): RIGHT CATARACT SURGERY [facility] Diabetic polyneuropathy asso ciated with type 2 diabetes mellitus 02/25/2018 Paronychia of great toe, right 10/15/2017 Skin ulceration 04/30/2017 Onychogryposis 08/21/2016 Type II diabetes mellitus with peripheral angiop athy [place] or callus Family History Medical History Relation [...] 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 PHQ-2 Answer Date Recorded Total Score [...] Comments Blood Pressure 142/84 01/01/2023 10:58 AM FIREWORKS ASSEMBLER Pulse 85 01/01/2023 10:58 AM FIREWORKS ASSEMBLER Temperature 37 C (98.6 F) 10/13/2022 1:21 PM FIREWORKS ASSEMBLER Respiratory Rate 16 10/01/2022 9:32 AM FIREWORKS ASSEMBLER Oxygen Saturation 96% 10/01/2022 9:32 AM FIREWORKS ASSEMBLER Inhaled Oxygen Concentration - - Weight 122.5 kg (270 lb) 01/01/2023 10:58 AM FIREWORKS ASSEMBLER Height 182.9 cm (6') 01/01/2023 10:58 AM FIREWORKS ASSEMBLER Body Mass Index 36.62 01/01/2023 10:58 AM FIREWORKS ASSEMBLER Plan of Treatment Health Maintenance Due Date [...] this topic Medical Devices Implanted Type Area Corn Chip Maker Device Identifier Shelf Expiration Date Model / Serial / Lot Iol Toric Sn6at - [id number] Implanted:Qty: 1 on 08/16/2018 by Gregory Jordan MD at [facility] IMPLANT Right: Eye [employer] 01/14/2019 [id number] / [id number] / UNKNOWN Procedures Procedure Name Priority Date/Time Associated Diagnosis Comments UR MICROALBUMIN/CREATI NINE RATIO RANDOM Routine 10/31/2022 9:00 PM FIREWORKS ASSEMBLER HEMOGLOBIN A1C W/ ESTIMATED GLUCOSE Routine 10/09/2021 11:03 AM FIREWORKS ASSEMBLER Type 2 diabetes with nephropathy (HCC) from Last 3 Months or Most Recently Relevant to Health Maintenance Results * (ABNORMAL) UR MICROALBUMIN/CREATININE RATIO RANDOM (10/31/2022 9:00 PM FIREWORKS ASSEMBLER) CREATININE URINE 119.0 >=0.0 mg/dL 11/01/2022 12:15 AM FIREWORKS ASSEMBLER [facility] ALB/CREAT RATIO 256(H) 0 - 29 mg/g CRE 11/01/2022 12:15 AM FIREWORKS ASSEMBLER [facility] Comment: Per ADA recommendations: Microalbumin/Creatinine Ratio <30 = normal, 30-300 = microalbuminuria, >300 = clinical albuminuria. Classification is based on at least 2 of 3 abnormal results within 3-6 months. [facility] MALB RANDOM UR 305.0 mg/L 11/01/2022 12:15 AM FIREWORKS ASSEMBLER [facility] Urine Non-Phlebotomy Collection / Unknown 10/31/2022 9:00 PM FIREWORKS ASSEMBLER 10/31/2022 11:39 PM FIREWORKS ASSEMBLER us Brian Madsen MD URINE ORDERABLES Final Res ult [facility] [address] [place] [address] * (ABNORMAL) HEMOGLOBIN A1C W/ ESTIMATED GLUCOSE (10/09/2021 11:03 AM FIREWORKS ASSEMBLER) HGB-A1C 8.0(H) 4.0 - 6.0 % 10/09/2021 2:06 PM FIREWORKS ASSEMBLER [facility] Est Average Glucose 182.9 mg/dL 10/09/2021 2:06 PM FIREWORKS ASSEMBLER [facility] Blood Venipuncture / Unknown 10/09/2021 11:03 AM FIREWORKS ASSEMBLER 10/09/2021 1:52 PM FIREWORKS ASSEMBLER Narrative [facility] - 10/09/2021 2:06 PM FIREWORKS ASSEMBLER HEMOGLOBIN A1C: DIABETIC PATIENTS: WELL-CONTROLLED: 6.2 - 7.0 INTERMEDIATE WELL-CONTROLLED: 7.0 - 9.0 POORLY-CONTROLLED: >9.0 Vladimir Luis MD CHEMISTRY ORDERABLES Catia serrato Result [facility] [address] [place] [address] from Last 3 Months or Most Recently Relevant to Health Maintenance Insurance [employer]IC[employer] Advance Directives * Full Code (Latest Code Status on File) Date Activated Date Inactivated Comments 07/11/2019 6:52 PM 07/13/2019 6:23 PM CPR-Full Jacek atment: FULL ARREST: Attempt Resuscitation/CPR wit intubation and mechanical ventilation. PRE-ARREST: Use entire range of life support measures to stabilize the patient. Care Teams Supervisor Drilling And Shooting Relationship Specialty Start Date End Date Nicho Posada MD [address] [place] [address] [address] [place] [address] PCP - General Family Medicine 01/08/22 María Ochoa, PRETZEL TWISTING MACHINE OPERATOR, BAGGAGEMASTER [address] [place] [address] Referring Provider Advanced Practice Nurse 05/01/21 Gregorio Garza DPM [address] [place] [address] [address] [place] [address] Consulting Physician Podiatry 07/03/22
--- OUTSIDE RECORDS SUMMARY | 2025-01-09 15:33 | XMS_ITS | Encounter Summary ---
Author Organization [facility] Address [address] [place] [address] Phone Care Team Providers Care Die Cast Operator Name Role Phone María Ochoa APRN, ELECTRICAL TESTS SUPERVISOR Unavailable [phone] Nicho Posada MD Primary Care Provider [phone] Gregorio Garza DPM Unavailable Unavailable Encounter Details Date Type Department Care Team (Late st Contact Info) Description 12/15/[address] 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 No / Unsure 12/11/2022 11:16 AM CSR TECHNICIAN documented as of this encounter Plan of Treatment Not on file documented as of this encounter Procedures Procedure Name Priority Date/Time Associated Diagnosis Comments BASIC METABOLIC PANEL W/ CALCIUM TOTAL Routine 12/15/2022 10:35 AM CSR TECHNICIAN Chronic kidney disease, unspecified ALBUMIN Routine 12/15/2022 10:35 AM CSR TECHNICIAN Chronic kidney disease, unspecified ADJUSTED CALCIUM*[facility] Routine 12/15/2022 10:35 AM CSR TECHNICIAN Chronic kidney disease, unspecified documented in this encounter Results * (ABNORMAL) ALBUMIN (12/15/2022 10:35 AM CSR TECHNICIAN) ALBUMIN 2.6(L) 3.4 - 4.8 g/dL 12/15/2022 1:58 PM CSR TECHNICIAN [facility] Blood Venipuncture / Unknown 12/15/2022 10:35 AM CSR TECHNICIAN 12/15/2022 12:10 PM CSR TECHNICIAN us Raghavendra Kimble MD CHEMISTRY ORDERABLES Final Resul t Performing Organization Address [facility] Co de Phone Number [address] [address] * ADJUSTED CALCIUM*[facility] (12/15/2022 10:35 AM CSR TECHNICIAN) ADJUSTED CALCIUM 9.5 8.8 - 10.0 mg/dL 12/15/2022 2:07 PM CSR TECHNICIAN [facility] Blood Venipuncture / Unknown 12/15/2022 10:35 AM CSR TECHNICIAN 12/15/2022 12:10 PM CSR TECHNICIAN us Raghavendra Kimble MD CHEMISTRY ORDERABLES Final Resul t Performing Organization Address City/[facility] Co de Phone Number [address] [address] * (ABNORMAL) BASIC METABOLIC PANEL W/ CALCIUM TOTAL (12/15/2022 10:35 AM CSR TECHNICIAN) SODIUM 136 133 - 145 mmol/L 12/15/2022 1:51 PM [facility] POTASSIUM 3.9 3.5 - 5.1 mmol/L 12/15/2022 1:51 PM [facility] CHLORIDE 104 96 - 108 mmol/L 12/15/2022 1:51 PM [facility] CO2, VENOUS 26 21 - 32 mmol/L 12/15/2022 1:51 PM [facility] ANION GAP 9.9(L) 10.0 - 20.0 mmol/L 12/15/2022 1:51 PM [facility] GLUCOSE 307(H) 83 - 110 mg/dL 12/15/2022 1:51 PM [facility] BUN 23(H) 6 - 19 mg/dL 12/15/2022 1:51 PM [facility] CREATININE, BLOOD 1.50(H) 0.50 - 1.30 mg/dL 12/15/2022 1:51 PM [facility] BUN/CREATININE RATIO 15 12 - 20 ratio 12/15/2022 1:51 PM [facility] CALCIUM 8.4(L) 8.8 - 10.0 mg/dL 12/15/2022 1:51 PM [facility] Comment:Calcium low. Correct ed calcium to follow. GFR, ESTIMATED 49 12/15/2022 1:51 PM [facility] Comment: This eGFR is calculated [...] Blood Venipuncture / Unknown 12/15/2022 10:35 AM CSR TECHNICIAN 12/15/2022 12:10 PM CSR TECHNICIAN us Raghavendra Kimble MD CHEMISTRY ORDERABLES Final Resul t [facility] [address] [place] [address] documented in this encounter Visit Diagnoses Diagnosis Chronic kidney disease, unspecified documented in this encounter Additional Health Concerns Assessment Noted Time PHQ-9 Depression Total Score: 0 08/05/20 21 3:00 PM CDT documented as of this encounter Care Teams Die Cast Operator Relationship Specialty Start Date End Date Nicho Posada MD [address] [employer] [address] [place] [address] PCP - General Family Medicine 01/08/22 María Ochoa APRN, ELECTRICAL TESTS SUPERVISOR [address] [place] [address] Referring Provider Advanced Practice Nurse 05/01/21 Gregorio Garza DPM [address] [employer] [place] [address] Consulting Physician Podiatry 07/03/22 documented as of this encounter
--- OUTSIDE RECORDS SUMMARY | 2025-01-09 15:33 | XMS_ITS | Encounter Summary ---
Author Organization [facility] Address [address] [place] [address] Phone Care Team Providers Care Liquor Clerk Name Role Phone María Ochoa APRN, CHILD LIFE ASSISTANT Unavailable [phone] Nicho Posada MD Primary Care Provider [phone]- [phone] Gregorio Garza DPM Unavailable Unavailable Reason for Visit * Reason Comments Medication Refill Encounter Details Date Type Department Care Team (Late st Contact Info) Description 10/17/2022 Refill [facility] [address] [place] [address] Brian Madsen MD [address] [place] [address] Medication Refill Social History Tobacco Use Types Packs/Day Years Used Date Smoking Tobacco: Never Smokeless Tobacco: Never Alcohol Use Standard Drinks/Week Comments Yes 1 (1 standard drink = 0.6 oz pure alcohol) 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 No / Unsure 10/13/2022 1:07 PM WAREHOUSE ORDER PICKER documented as of this encounter Plan of Treatment Not on file documented as of this encounter Visit Diagnoses Not on filedocumented in this encounter Additional Health Concerns Assessment Noted Time PHQ-9 Depression Total Score: 0 08/05/20 21 3:00 PM CDT documented as of this encounter Care Teams Liquor Clerk Relationship Specialty Start Date End Date Nicho Posada MD [facility] [employer] [address] [place] [address] PCP - General Family Medicine 01/08/22 María Ochoa APRN, CHILD LIFE ASSISTANT [address] [place] [address] Referring Provider Advanced Practice Nurse 05/01/21 Gregorio Garza DPM [facility] [employer] [address] [place] [address] Consulting Physician Podiatry 07/03/22 documented as of this encounter
--- OUTSIDE RECORDS SUMMARY | 2025-01-09 15:33 | XMS_ITS | Encounter Summary ---
Author Organization [facility] Address [address] [place] [address] Phone Care Team Providers Care Internet Merchant Name Role Phone María Ochoa APRN, SAFETY ASSOCIATE Unavailable [phone] Nicho Posada MD Primary Care Provider [phone] Gregorio Garza DPM Unavailable Unavailable Encounter Details Date Type Department Care Team (Late st Contact Info) Description 10/31/2022 Lab Requisition [facility] Laboratory Services [address] [place] [address] Brian Madsen MD [address] [place] [address] Chronic kidney disease, stage 3 unspecified (HCC) Social History Tobacco Use Types Packs/Day Years Used Date Smoking Tobacco: Never Smokeless Tobacco: Never Alcohol Use Standard Drinks/Week Comments Yes 1 (1 standard drink = 0.6 oz pure alcohol) 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 No / Unsure 10/29/2022 10:33 AM ANIMAL SCIENTIST documented as of this encounter Plan of Treatment Not on file documented as of this encounter Procedures Procedure Name Priority Date/Time Associated Diagnosis Comments URINALYSIS MICROSCOPIC IF INDICATED Routine 10/31/2022 9:00 PM ANIMAL SCIENTIST UR PROTEIN/CREATININE RATIO Routine 10/31/2022 9:00 PM ANIMAL SCIENTIST UR MICROALBUMIN/CREATIN INE RATIO RANDOM Routine 10/31/2022 9:00 PM ANIMAL SCIENTIST documented in this encounter Results * (ABNORMAL) URINALYSIS MICROSCOPIC IF INDICATED (10/31/2022 9:00 PM ANIMAL SCIENTIST) SPECIFIC GRAVITY 1.016 1.003 - 1.035 11/01/2022 7:47 AM [facility] URINE PH 5.5 5.0 - 8.0 11/01/2022 7:47 AM [facility] WBC ESTERASE Negative Negative 11/01/2022 7:47 AM [facility] NITRITE Negative Negative 11/01/2022 7:47 AM [facility] PROTEIN, RANDOM URINE 1+(A) Negative 11/01/2022 7:47 AM [facility] URINE GLUCOSE, QUAL 3+(A) Negative 11/01/2022 7:47 AM [facility] URINE KETONES Negative Negative 11/01/2022 7:47 AM [facility] UROBILINOGEN <2.0 <2.0 mg/dL 11/01/2022 7:47 AM [facility] URINE BILIRUBIN Negative Negative 7:47 AM [facility] URINE BLOOD Negative Negative jamie/ul 11/01/2022 7:47 AM [facility] URINALYSIS COLOR Yellow Yellow 11/01/20 7:47 AM [facility] URINALYSIS CLARITY Clear Clear 11/01/2022 7:47 AM [facility] WBC (Urine) 0-5 0-5, Negative /hpf 11/01/2022 7:47 AM [facility] URINE RBC'S 0-5 0-5, Negative, None /hpf 11/01/2022 7:47 AM [facility] URINE MUCOUS Rare None, Rare, Few 11/01/2022 7:47 AM [facility] DMH RENAL EPI CELLS 11/01/2022 7:47 AM [facility] URINE SPERM 11/01/2022 7:47 AM [facility] URINE TRICHOMONAS 11/01/2022 7:47 AM [facility] URINE YEAST 11/01/2022 7:47 AM [facility] Urine Non-Phlebotomy Collection / Unknown 10/31/2022 9:00 PM ANIMAL SCIENTIST 10/31/2022 11:40 PM ANIMAL SCIENTIST us Brian Madsen MD URINE ORDERABLES Edited Re sult - Final Performing Organization Address City/[facility]/ZIP Co de Phone Number [place] [phone] * (ABNORMAL) UR MICROALBUMIN/CREATININE RATIO RANDOM (10/31/2022 9:00 PM ANIMAL SCIENTIST) CREATININE URINE 119.0 >=0.0 mg/dL 11/01/2022 12:15 AM [facility] ALB/CREAT RATIO 256(H) 0 - 29 mg/g CRE 11/01/2022 12:15 AM [facility] Comment: Per ADA recommendations: Microalbumin/Creatinine Ratio <30 = normal, 30-300 = microalbuminuria, >300 = clinical albuminuria. Classification is based on at least 2 of 3 abnormal results within 3-6 months. [facility] MALB RANDOM UR 305.0 mg/L 11/01/2022 12:15 AM [facility] Urine Non-Phlebotomy Collection / Unknown 10/31/2022 9:00 PM ANIMAL SCIENTIST 10/31/2022 11:39 PM ANIMAL SCIENTIST us Brian Madsen MD URINE ORDERABLES Final Res ult Performing Organization Address City/[facility]/ZIP Co de Phone Number [facility] [address] [place] [address] * (ABNORMAL) UR PROTEIN/CREATININE RATIO (10/31/2022 9:00 PM ANIMAL SCIENTIST) UR PROTEIN RAND, QT 88.1(H) 0.0 - 14.0 mg/dL 11/01/2022 12:51 AM ANIMAL SCIENTIST [facility] URINE CREATININE 119.0 mg/dL 11/01/2022 12:51 AM ANIMAL SCIENTIST [facility] URINE PROTEIN/CREATIN INE RATIO 0.74 11/01/2022 12:51 AM ANIMAL SCIENTIST [facility] Comment: Ratio calculation: Protein(mg/dl)/Creatinine(mg/dl). No reference range available. Urine Non-Phlebotomy Collection / Unknown 10/31/2022 9:00 PM ANIMAL SCIENTIST 10/31/2022 11:39 PM ANIMAL SCIENTIST us Brian Madsen MD URINE ORDERABLES Final Res ult [facility] [address] [place], [place] [id number] documented in this encounter Visit Diagnoses Diagnosis Chronic kidney disease, stage 3 unspecified (HCC) documented in this encounter Additional Health Concerns Assessment Noted Time PHQ-9 Depression Total Score: 0 08/05/20 21 3:00 PM CDT documented as of this encounter Care Teams Internet Merchant Relationship Specialty Start Date End Date Nicho Posada MD [address] [place] [address] [address] [place] [address] PCP - General Family Medicine 01/08/22 María Ochoa APRN, SAFETY ASSOCIATE [address] [place] [address] Referring Provider Advanced Practice Nurse 05/01/21 Gregorio Garza DPM [address] [place] [address] [address] [place] [address] Consulting Physician Podiatry 07/03/22 documented as of this encounter
--- OUTSIDE RECORDS SUMMARY | 2025-01-09 15:33 | XMS_ITS | Encounter Summary ---
Author Organization [facility] Address [address] [place] [address] Phone Care Team Providers Care Drug Worker Name Role Phone María Ochoa APRN, FIELD KILN BURNER Unavailable [phone] Nicho Posada MD Primary Care Provider [phone] Gregorio Garza DPM Unavailable Unavailable Reason for Visit * Reason Comments Medication Refill Encounter Details Date Type Department Care Team (Late st Contact Info) Description 11/16/2022 Refill [facility] [address] [place] [address] Brian Madsen MD [address] [place] [address] Medication Refill Social History Tobacco Use Types Packs/Day Years Used Date Smoking Tobacco: Never Smokeless Tobacco: Never Alcohol Use Standard Drinks/Week Comments Yes 1 (1 standard drink = 0.6 oz pure alcohol) 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 No / Unsure 11/19/2022 9:28 AM SLIP CASTER documented as of this encounter Functional Status * Question Answer Date of Assessment Author Little interest or pleasure in doing things Not at all 11/19/2022 10:00 AM SLIP CASTER Suly Leong RN Feeling down, depressed, or hopeless Not at all 11/19/2022 10:00 AM SLIP CASTER Suly Leong RN * Over the past 2 weeks, how often have you been bothered by any of the following problems? Question Answer Date of Assessment Author Patient Health Questionnaire-2 Score 0 02/2023 10:00 AM SLIP CASTER Suly Leong RN documented as of this encounter Miscellaneous Notes * Telephone Encounter - Suly Leong RN - 11/18/2022 3:06 PM CST PT IS CURRENTLY IN [facility] documented in this encounter Plan of Treatment Not on file documented as of this encounter Visit Diagnoses Not on filedocumented in this encounter Additional Health Concerns Assessment Noted Time PHQ-9 Depression Total Score: 0 08/05/20 21 3:00 PM CDT documented as of this encounter Care Teams Drug Worker Relationship Specialty Start Date End Date Nicho Posada MD [address] [place] [address] [employer] [address] [place] [address] PCP - General Family Medicine 01/08/22 María Ochoa APRN, FIELD KILN BURNER [address] [place] [address] Referring Provider Advanced Practice Nurse 05/01/21 Gregorio Garza DPM [address] [place] [address] [employer] [address] [place] [address] Consulting Physician Podiatry 07/03/22 documented as of this encounter
--- OUTSIDE RECORDS SUMMARY | 2025-01-09 15:33 | XMS_ITS | Clinical Summary ---
Author Organization [facility] Address Critical access hospital[address] [place] [address] Care Team Providers Care Utility Arborist Name Role Phone Puma Coronado MD Unavailable Edu Saavedra MD Unavailable Unavailab Alexis Deras MD Unavailable [phone] Familia Ford APRN Unavailable [phone] Nicho Posada MD Primary Care Provider [phone] Dhaval Dyer MD Unavailable Allergies No known [...] chronic kidney disease, or chronic kidney disease ([facility]) 10/29/2022 Chronic diastolic congestive heart failure ([facility]) 10/29/2022 Atherosclerotic heart diseas e of [place] coronary artery without angina pectoris 10/29/2022 Chronic venous hypertension (idiopathic) with ulcer of right lower extremity ([facility]) 10/29/2022 Syncope 10/16/2022 Carotid stenosis 04/24/2022 Vitamin D deficiency 07/16/2021 Microalbuminuria 07/16/2021 Diabetic nephropathy associa vinay with type 2 diabetes mellitus ([facility]) 05/28/2021 Bilateral leg edema 05/28/2021 PVC (premature ventricular contraction) 02/28/20 21 Syncope, unspecified syncope type 02/27/2021 Systolic murmur 01/17/2021 PVC (pulmonary venous congestion) 01/17/2021 Onychocryptosis 08/16/2020 Chest pain 07/11/2019 CKD (chronic kidney disease) stage 3, GFR 30-59 ml/min ([facility]) 07/11/2019 [place] or callus 10/14/2018 Type 2 diabetes mellitus wit h peripheral angiopathy ([facility]) 10/14/2018 Nuclear sclerotic cataract of left eye 8 Overview (10/25/2018): Overview: RIGHT CATARACT SURGERY [facility] Everett's esophagus without dysplasia 03/01/2018 Overview (10/14/2018): Description: 02/19/2018, Dr. Saavedra. Diabetic polyneuropathy asso ciated with type 2 diabetes mellitus ([facility]) 02/25/2018 Occult blood in stools 02/19/2018 Unintentional weight loss 02/19/2018 Family history of esophageal cancer 02/19/2018 Paronychia of great toe, right 10/15/2017 Skin ulceration ([facility]) 04/30/2017 Onychogryposis 08/21/2016 Stroke ([facility]) Pneumonia Obesity Iron deficiency anemia Hypertension Dyslipidemia Diabetes ([facility]) Coronary artery disease Resolved Problems Problem Noted Date Diagnosed Date Resolved Date Hospital discharge follow-up 11/24/2022 12/01/2022 Encounter for screening colonoscopy 02/19/2018 07/27/2020 Encounter for preventive health examination 12/30/2017 07/27/2020 Right carotid bruit 10/27/20 23 Encounters Date Type Department Care Team Description 12/16/2024 2:00 PM WELDING MACHINE SETTER Office Visit [facility] [address] [place] [address] Familia Ford, INVESTIGATOR OPERATOR Follow Up (CAD, CS, SND (PPM), HTN, DLD) 12/16/2024 12:57 PM WELDING MACHINE SETTER - 12/16/2024 11:59 PM WELDING MACHINE SETTER Hospital Encounter [facility] Vascular Ultrasound - [facility] [address] [place] [address] Familia Ford, INVESTIGATOR OPERATOR Discharge Disposition: Home or Self Care (Routine Discharge) 12/16/2024 Travel 11/25/2024 1:30 PM WELDING MACHINE SETTER [facility] [address] [place] [address] Servando Kumar, DPM [place]/ Callous Removal; Hammer Toe 10/21/2024 10:45 AM WELDING MACHINE SETTER [facility] [address] [place] [address] Servando Kumar, DPM Hammer Toe; Foot Ulcer 10/19/2024 8:00 AM WELDING MACHINE SETTER Allied Health/Nurse Visit [facility] [address] [place] [address] Dhaval Dyer MD from Last 3 Months [...] Sex Assigned at Male 12/16/2024 1:31 PM WELDING MACHINE SETTER Legal Sex Male 9:51 PM CDT Gender Identity Male 02/24/2022 7:56 AM CDT Sexual Orientation Not on file Last Filed Vital Signs Vital Sign Reading Time Taken Comments Blood Pressure 132/84 12/16/2024 1:39 PM WELDING MACHINE SETTER Pulse 97 12/16/2024 1:39 PM WELDING MACHINE SETTER Temperature 36.4 C (97.5 F) 05/08/2023 6:12 AM CDT Respiratory Rate 16 12/16/2024 1:39 PM WELDING MACHINE SETTER Oxygen Saturation 95% 12/16/2024 1:39 PM WELDING MACHINE SETTER Inhaled Oxygen Concentration - - Weight 105.9 kg (233 lb 6.4 oz) 12/16/2024 1:39 PM WELDING MACHINE SETTER Height 181.6 cm (5' 11.5 ) 12/16/2024 1:39 PM CS T Body Mass Index 32.1 12/16/2024 1:39 PM WELDING MACHINE SETTER Plan of Treatment Upcoming Encounters Date Type Department Care Team (Late st Contact Info) Description 02/02/2025 3:30 AM CDT [facility] [address] [place] [id number] Dhaval Dyer MD [address] [place] [address] 02/10/2025 11:15 AM CDT [facility] [address] [place], [place] [address] Servando Kumar, DPM [address] [place] [address] Health Maintenance Due Date Last [...] (#1) 2024 08/09/2020, 08/19/2019, 09/11/2016 PHQ-2 (Physician [place]) 11/16/2024 Colorectal Cancer Screening Colonoscopy (10 Years) [...] this topic Medical Devices Implanted Type Area Yard Brakeman Device Identifier Shelf Expiration Date Model / Serial / Lot Medtronic His/Lbb- 023 Implanted:04/17 by Dhaval Dyer MD (Quantity not on file) Lead Implant [employer] 03/05/2025 [id number] / [id number] / Medtronic Ra-05/08/2023 Implanted:04/17 by Dhaval Dyer MD (Quantity not on file) Lead Implant [employer] 02/03/2025 [id number] / [id number] / Medtronic Delma Mri -05/08/2023 Implanted:04/17 by Dhaval Dyer MD (Quantity not on file) Pacemaker [employer] 10/13/2024 [id number] / [id number] / Description:DX:SND Procedures Procedure Name Priority Date/Time Associated Diagnosis Comments USV CAROTID DUPLEX VEE Routine 12/16/2024 1:27 PM WELDING MACHINE SETTER Bilateral carotid artery stenosis COLONOSCOPY Routine 02/19/2018 12:00 AM CDT from Last 3 Months or Most Recently Relevant to Health Maintenance Results * USV CAROTID DUPLEX VEE (12/16/2024 1:27 PM WELDING MACHINE SETTER) Anatomical Region Laterality Modality Neck Ultrasound 12/16/2024 1:01 PM WELDING MACHINE SETTER Narrative 12/16/2024 2:29 PM WELDING MACHINE SETTER SJS Vascular Report Pat.Name: ANCA HUGHES Pat.ID: [id number] .Date: 12/16/2024 Refer.MD: FAMILIA FORD Exam Time: 1:01:00 PM Study Type:PVI CAROTID SCAN - BILATERAL Height: 72 in Age: 4 1950,74Y Sex: M Sonogrphr: SUKHWINDER Wade Pat. Stat.:Outpatient ICD - 9: I65.23 Carotid occlusion/Stenosis bilateral CPT - 4: 91874 Carotid Duplex Reason for Study:Carotid Stenosis Race: [...] S Vascular Report Pat.Name: ANCA HUGHES Pat.ID: [id number] .Date: 12/16/2024 Refer.MD: FAMILIA FORD Exam Time: 1:01:00 PM Study Type:PVI CAROTID SCAN - BILATERAL Height: 72 in Age: 4 1950,74Y Sex: M Sonogrphr: SUKHWINDER Wade Pat. Stat.:Outpatient ICD - 9: I65.23 Carotid occlusion/Stenosis bilateral CPT - 4: 47177 Carotid Duplex Reason for Study:Carotid Stenosis Race: [...] Maxwell Lezama M.D. us Familia N Liliana INVESTIGATOR OPERATOR US VASC Final R esult * Colonoscopy [...] Documents on File Type Date Recorded Patient Blood Collector Expl anation Advance Directive (Activated) 12/09/2022 3:17 PM POLST Advance Directives and Livin g Will 11/13/2022 12:18 PM POLST Advance Directive (Activated) 10/28/2022 9:57 AM POLST * Full Code (Latest Code Status on File) Date Activated Date Inactivated Comments 10/29/2022 10:23 AM 05/08/2023 5:34 AM * Full Code Date Activated Date Inactivated Comments 10/16/2022 4:00 PM 10/24/2022 12:19 AM Care Teams Utility Arborist Relationship Specialty Start Date End Date Nicho Posada MD [address] [place] [address] PCP - General FAMILY PRACTICE 02/21/22 Puma Coronado MD [address] [place] [address] Mikael Station Agent CARDIOVASCULAR DISEASE 01/28/18 Edu Savaedra MD [address] [place] [address] Consulting Physician SURGERY 01/28/18 Alexis Bush MD [address] [place] [address] Consulting Physician INTERVENTIONAL CARDIOLOGY 01/09/21 Familia Ford APRN [address] [place] [address] 725149 Nurse Practitioner NURSE PRACTITIONER 01/09/21 Dhaval Dyer MD [address] [place] [phone] Consulting Physician CLINICAL CARDIAC ELECTROPHYSIOLOGY 05/08/23
--- OUTSIDE RECORDS SUMMARY | 2025-01-09 15:33 | XMS_ITS | Encounter Summary ---
Author Organization [facility] Address [address] [place] [address] Phone Care Team Providers Care Labor Crew Supervisor Name Role Phone María Ochoa APRN, FINGERER Unavailable [phone] Nicho Posada MD Primary Care Provider [phone] Gregorio Garza DPM Unavailable Unavailable Reason for Visit * Reason Comments Medication Refill Encounter Details Date Type Department Care Team (Late st Contact Info) Description 08/18/2022 Refill [facility] [address] [place] [address] Brian Madsne MD [address] [place] [address] Medication Refill Social History Tobacco Use Types Packs/Day Years Used Date Smoking Tobacco: Never Smokeless Tobacco: Never Alcohol Use Standard Drinks/Week Comments Yes 1 (1 standard drink = 0.6 oz pur e alcohol) Manager Maritime PHQ-2 Answer Date Recorded Total Score - [...] documented as of this encounter Care Teams Labor Crew Supervisor Relationship Specialty Start Date End Date Nicho Posada MD [address] [place] [address] [employer] [address] [place] [address] PCP - General Family Medicine 01/08/22 María Ochoa APRN, FINGERER [address] [place] [address] Referring Provider Advanced Practice Nurse 05/01/21 Gregorio Garza DPM [address] [place] [address] [employer] [address] [place] [address] Consulting Physician Podiatry 07/03/22 documented as of this encounter
--- OUTSIDE RECORDS SUMMARY | 2025-01-09 15:33 | XMS_ITS | Encounter Summary ---
Author Organization [facility] Address [address] [place] [address] Phone Care Team Providers Care Consumer Advocate Name Role Phone María Ochoa APRN, CLASSIFICATION AND TREATMENT DIRECTOR Unavailable [phone] Nicho Posada MD Primary Care Provider [phone] Gregorio Garza DPM Unavailable Unavailable Reason for Visit * Reason Comments Medication Refill Encounter Details Date Type Department Care Team (Late st Contact Info) Description 11/07/2022 Refill [facility] [address] [place] [address] Brian Madsen MD [address] [place] [address] Medication Refill Social History Tobacco Use Types Packs/Day Years Used Date Smoking Tobacco: Never Smokeless Tobacco: Never Alcohol Use Standard Drinks/Week Comments Yes 1 (1 standard drink = 0.6 oz pure alcohol) 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 No / Unsure 10/29/2022 10:33 AM DIRECTOR OF CORPORATE MARKETING documented as of this encounter Miscellaneous Notes * Telephone Encounter - Suly Leong RN - 11/11/2022 4:03 PM CST [place] CUR[place]HAS APPT 11/13 CTOR OF CORPORATE MARKETING documented in this encounter Plan of Treatment Not on file documented as of this encounter Visit Diagnoses Not on filedocumented in this encounter Additional Health Concerns Assessment Noted Time PHQ-9 Depression Total Score: 0 08/05/20 21 3:00 PM CDT documented as of this encounter Care Teams Consumer Advocate Relationship Specialty Start Date End Date Nicho Posada MD [address] [place] [address] [employer] [address] [place] [address] PCP - General Family Medicine 01/08/22 María Ochoa, PT SITTER, CLASSIFICATION AND TREATMENT DIRECTOR [address] [place] [address] Referring Provider Advanced Practice Nurse 05/01/21 Gregorio Garza DPM [address] [place] [address] [employer] [address] [place] [address] Consulting Physician Podiatry 07/03/22 documented as of this encounter
--- OUTSIDE RECORDS SUMMARY | 2025-01-09 15:33 | XMS_ITS | Encounter Summary ---
Author Organization [facility] Address [address] [place] [address] Phone Care Team Providers Care Grinder Hand Name Role Phone Vladimir Luis MD Primary Care Provider [phone] Mark Mai DPM Unavailable Unavailab María Haile RD MANAGER, DRUM DYEING MACHINE OPERATOR Unavailable [phone] Nicho Posada MD Primary Care Provider [phone] Gregorio Garza DPM Unavailable Unavailable Reason for Visit * Reason Comments Medication Refill Encounter Details Date Type Department Care Team (Late st Contact Info) Description 12/23/2021 Refill [facility] [place] [address] [place] [address] Brian Madsen MD [facility] [place] [address] Medication Refill Social History Tobacco Use Types Packs/Day Years Used Date Smoking Tobacco: Never Smokeless Tobacco: Never Alcohol Use Standard Drinks/Week Comments Yes 1 (1 standard drink = 0.6 oz pur e alcohol) Sorority Supervisor PHQ-2 Answer Date Recorded Total Score - [...] COVID-19? No / Unsure 12/02/2021 4:02 PM ULTRASOUND COORDINATOR documented as of this encounter Plan of Treatment Not on file documented as of this encounter Visit Diagnoses Not on filedocumented in this encounter Additional Health Concerns Assessment Noted Time PHQ-9 Depression Total Score: 0 08/05/20 21 3:00 PM CDT documented as of this encounter Care Teams Grinder Hand Relationship Specialty Start Date End Date Vladimir Luis MD [address] [place] [address] PCP - General Family Medicine 07/25/16 01/07/22 Nicho Posada MD [address] [place] [address] [address] [place] [address] PCP - General Family Medicine 01/08/22 Mark Mai DPM [address] [place] [address] Consulting Physician Podiatry 07/25/16 07/31/22 María Ochoa APRN, DRUM DYEING MACHINE OPERATOR [address] [place] [address] Referring Provider Advanced Practice Nurse 05/01/21 Gregorio Garza DPM [address] [place] [address] [email or web address] [address] [place] [address] Consulting Physician Podiatry 07/03/22 documented as of this encounter
--- OUTSIDE RECORDS SUMMARY | 2025-01-09 15:33 | XMS_ITS | Encounter Summary ---
Author Organization [facility] Address [address] [place] [address] Phone Care Team Providers Care Two Needle Machine Operator Name Role Phone Vladimir Luis MD Primary Care Provider [phone] Mark Mai DPM Unavailable Unavailab María Haile AGRI BUSINESS AGENT, CASH MANAGEMENT SPECIALIST Unavailable [phone] Nicho Posada MD Primary Care Provider [phone] Gregorio Garza DPM Unavailable Unavailable Reason for Visit * Reason Comments Medication Refill Encounter Details Date Type Department Care Team (Late st Contact Info) Description 11/11/2021 Refill [facility] [place] [address] [place] [address] Brian Madsen MD [facility] [place] [address] Medication Refill Social History Tobacco Use Types Packs/Day Years Used Date Smoking Tobacco: Never Smokeless Tobacco: Never Alcohol Use Standard Drinks/Week Comments Yes 1 (1 standard drink = 0.6 oz pur e alcohol) Public Relations Writer PHQ-2 Answer Date Recorded Total Score - [...] COVID-19? No / Unsure 10/31/2021 2:34 PM ROUTER SETTER documented as of this encounter Plan of Treatment Not on file documented as of this encounter Visit Diagnoses Not on filedocumented in this encounter Additional Health Concerns Assessment Noted Time PHQ-9 Depression Total Score: 0 08/05/20 21 3:00 PM CDT documented as of this encounter Care Teams Two Needle Machine Operator Relationship Specialty Start Date End Date Vladimir Luis MD [address] [place] [address] PCP - General Family Medicine 07/25/16 01/07/22 Nicho Posada MD [address] [place] [address] [address] [place] [address] PCP - General Family Medicine 01/08/22 Mark Mai DPM [address] [place] [address] Consulting Physician Podiatry 07/25/16 07/31/22 María Ochoa APRN, CASH MANAGEMENT SPECIALIST [address] [place] [address] Referring Provider Advanced Practice Nurse 05/01/21 Gregorio Garza DPM [address] [place] [address] [employer] [address] [place] [address] Consulting Physician Podiatry 07/03/22 documented as of this encounter
--- OUTSIDE RECORDS SUMMARY | 2025-01-09 15:33 | XMS_ITS | Encounter Summary ---
Author Organization [facility] Address [address] [place] [address] Phone Care Team Providers Care Mold Maker Helper Name Role Phone María Ochoa APRN, STRING STUDIES DIRECTOR Unavailable [phone] Nicho Posada MD Primary Care Provider [phone] Gregorio Garza DPM Unavailable Unavailable Encounter Details Date Type Department Care Team (Late st Contact Info) Description 12/01/2022 Lab Requisition [facility] Laboratory Services [address] [place] [address] Brian Madsen MD [address] [place] [address] Chronic kidney disease, unspecified Social History Tobacco Use Types Packs/Day Years Used Date Smoking Tobacco: Never Smokeless Tobacco: Never Alcohol Use Standard Drinks/Week Comments Yes 1 (1 standard drink = 0.6 oz pure alcohol) 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 No / Unsure 11/20/2022 2:29 PM SVP MONETIZATION documented as of this encounter Plan of Treatment Not on file documented as of this encounter Procedures Procedure Name Priority Date/Time Associated Diagnosis Comments RENAL FUNCTION PANEL (RFP) Routine 12/01/2022 9:25 AM SVP MONETIZATION Chronic kidney disease, unspecified ADJUSTED CALCIUM*[facility] Routine 12/01/2022 9:25 AM SVP MONETIZATION Chronic kidney disease, unspecified documented in this encounter Results * ADJUSTED CALCIUM*[facility] (12/01/2022 9:25 AM SVP MONETIZATION) ADJUSTED CALCIUM 9.6 8.8 - 10.0 mg/dL 12/01/2022 1:00 PM [facility] Blood Venipuncture / Unknown 12/01/2022 9:25 AM SVP MONETIZATION 12/01/2022 10:22 AM SVP MONETIZATION us Brian Madsen MD CHEMISTRY ORDERABLES Final Result [address] [address] * (ABNORMAL) RENAL FUNCTION PANEL (RFP) (12/01/2022 9:25 AM SVP MONETIZATION) SODIUM 140 133 - 145 mmol/L 12/01/2022 12:34 PM [facility] POTASSIUM 4.3 3.5 - 5.1 mmol/L 12/01/2022 12:34 PM [facility] CHLORIDE 107 96 - 108 mmol/L 12/01/2022 12:34 PM [facility] CO2, VENOUS 29 21 - 32 mmol/L 12/01/2022 12:34 PM [facility] ANION GAP 8.3(L) 10.0 - 20.0 mmol/L 12/01/2022 12:34 PM [facility] GLUCOSE 226(H) 83 - 110 mg/dL 12/01/2022 12:34 PM [facility] Comment: Venipuncture should occur prior to administration of sulfasalazine and/or sulfapyridine. Glucose can be falsely depressed after administration of sulfasalazine, and falsely elevated with administration of sulfapyridine. BUN 21(H) 6 - 19 mg/dL 12/01/2022 12:34 PM [facility] CREATININE, BLOOD 1.20 0.50 - 1.30 mg/dL 12/01/2022 12:34 PM [facility] BUN/CREATININE RATIO 18 12 - 20 ratio 12/01/2022 12:34 PM [facility] ALBUMIN 2.9(L) 3.4 - 4.8 g/dL 12/01/2022 12:34 PM [facility] CALCIUM 8.7(L) 8.8 - 10.0 mg/dL 12/01/2022 12:34 PM [facility] Comment:Calcium low. Correct ed calcium to follow. PHOSPHORUS 3.7 2.6 - 4.5 mg/dL 12/01/2022 12:34 PM [facility] GFR, ESTIMATED 64 12/01/2022 12:34 PM [facility] Comment: This eGFR is calculated using 2020 [...] Blood Venipuncture / Unknown 12/01/2022 9:25 AM SVP MONETIZATION 12/01/2022 10:22 AM SVP MONETIZATION us Brian Madsen MD CHEMISTRY ORDERABLES Final Result [facility] [address] [place] [address] documented in this encounter Visit Diagnoses Diagnosis Chronic kidney disease, unspecified documented in this encounter Additional Health Concerns Assessment Noted Time PHQ-9 Depression Total Score: 0 08/05/20 21 3:00 PM CDT documented as of this encounter Care Teams Mold Maker Helper Relationship Specialty Start Date End Date Nicho Posada MD [address] [place] [address] PCP - General Family Medicine 01/08/22 María Ochoa APRN, STRING STUDIES DIRECTOR [address] [place] [address] Referring Provider Advanced Practice Nurse 05/01/21 Gregorio Garza DPM [email or web address] [place] [address] Consulting Physician Podiatry 07/03/22 documented as of this encounter
--- OUTSIDE RECORDS SUMMARY | 2025-01-09 15:33 | XMS_ITS | Encounter Summary ---
Author Organization [facility] Address [address] [place] [address] Phone Care Team Providers Care Director Of Integrated Marketing Name Role Phone María Ochoa APRN, TAX ASSOCIATE Unavailable [phone] Nicho Posada MD Primary Care Provider [phone] Gregorio Garza DPM Unavailable Unavailable Encounter Details Date Type Department Care Team (Late st Contact Info) Description 12/23/2022 Lab Requisition [facility] Laboratory Services [address] [place] [address] Raghavendra Kimble MD [address] [place] [address] Chronic kidney disease, unspecified Social History Tobacco Use Types Packs/Day Years Used Date Smoking Tobacco: Never Smokeless Tobacco: Never Alcohol Use Standard Drinks/Week Comments Yes 1 (1 standard drink = 0.6 oz pure alcohol) 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 No / Unsure 12/11/2022 11:16 AM ELECTROTYPE MOLDER documented as of this encounter Plan of Treatment Not on file documented as of this encounter Procedures Procedure Name Priority Date/Time Associated Diagnosis Comments BASIC METABOLIC PANEL W/ CALCIUM TOTAL Routine 12/23/2022 7:25 AM ELECTROTYPE MOLDER Chronic kidney disease, unspecified documented in this encounter Results * (ABNORMAL) BASIC METABOLIC PANEL W/ CALCIUM TOTAL (12/23/2022 7:25 AM ELECTROTYPE MOLDER) SODIUM 139 133 - 145 mmol/L 12/23/2022 11:03 AM [facility] POTASSIUM 3.9 3.5 - 5.1 mmol/L 12/23/2022 11:03 AM [facility] CHLORIDE 103 96 - 108 mmol/L 12/23/2022 11:03 AM [facility] CO2, VENOUS 28 21 - 32 mmol/L 12/23/2022 11:03 AM [facility] ANION GAP 11.9 10.0 - 20.0 mmol/L 12/23/2022 11:03 AM [facility] GLUCOSE 188(H) 83 - 110 mg/dL 12/23/2022 11:03 AM [facility] BUN 23(H) 6 - 19 mg/dL 12/23/2022 11:03 AM [facility] CREATININE, BLOOD 1.50(H) 0.50 - 1.30 mg/dL 12/23/2022 11:03 AM [facility] BUN/CREATININE RATIO 15 12 - 20 ratio 12/23/2022 11:03 AM [facility] CALCIUM 8.8 8.8 - 10.0 mg/dL 12/23/2022 11:03 AM [facility] GFR, ESTIMATED 49 12/23/2022 11:03 AM [facility] Comment: This eGFR is calculated using [...] Blood Venipuncture / Unknown 12/23/2022 7:25 AM ELECTROTYPE MOLDER 12/23/2022 8:21 AM ELECTROTYPE MOLDER us Raghavendra Kimble MD CHEMISTRY ORDERABLES Final Resul t [facility] [address] [place] [address] documented in this encounter Visit Diagnoses Diagnosis Chronic kidney disease, unspecified documented in this encounter Additional Health Concerns Assessment Noted Time PHQ-9 Depression Total Score: 0 08/05/20 3:00 PM CDT documented as of this encounter Care Teams Director Of Integrated Marketing Relationship Specialty Start Date End Date Nicho Posada MD [address] [place] [address] [address] [place] [address] PCP - General Family Medicine 01/08/22 María Ochoa APRN, TAX ASSOCIATE [address] [place] [address] Referring Provider Advanced Practice Nurse 05/01/21 Gregorio Garza DPM [address] [place] [address] [address] [place] [address] Consulting Physician Podiatry 07/03/22 documented as of this encounter
--- OUTSIDE RECORDS SUMMARY | 2025-01-09 15:33 | XMS_ITS | Encounter Summary ---
Author Organization [facility] Address [facility] [place] [address] Care Team Providers Care Continuity Editor Name Role Phone Puma Coronado MD Unavailable Edu Saavedra MD Unavailable Unavailab Alexis Deras MD Unavailable [phone] Familia Ford APRN Unavailable [phone] Nicho Posada MD Primary Care Provider + [phone] Dhaval Dyer MD Unavailable Encounter Details Date Type Department Care Team (Late st Contact Info) Description 05/04/2023 Hospital Orders Only [employer] Technician Pre/Post [address] [place] [address] Dhaval Dyer MD [address] [place] [address] Social History Tobacco Use Types Packs/Day Years Used Date Smoking Tobacco: Never Smokeless Tobacco: Never Alcohol Use Standard Drinks/Week Comments No 0 (1 standard drink = 0.6 oz pur e alcohol) Sex and Gender Information Value Date Recorded Sex Assigned at Male 12/16/2024 1:31 PM THIRD OFFICER Legal Sex Male 9:51 PM CDT Gender [...] Assessment Author Status No 10/17/2022 12:00 AM THIRD OFFICER Acti ve * RETIRED Are you blind or do you have serious difficulty seeing, even when wearing glasses? Answer Date of Assessment Author Status No 10/17/2022 12:00 AM THIRD OFFICER Acti ve * Do you have serious [...] 02/02/2025 3:30 AM CDT [facility] [address] [place] [address] Dhaval Dyer MD [address] [place] [address] 02/10/2025 11:15 AM CDT Office Visit [facility] [address] [place] [address] Servando Kumar, DPJohn [address] [place] [address] documented as of this encounter Visit Diagnoses Not on filedocumented in this encounter Care Teams Continuity Editor Relationship Specialty Start Date End Date Nicho Posada MD [address] [id number] PCP - General FAMILY PRACTICE 02/21/22 Puma Coronado MD [address] [place] [address] Mikael Van Cdl Driver CARDIOVASCULAR DISEASE 01/28/18 Edu Saavedra MD [address] [place] [address] Consulting Physician SURGERY 01/28/18 Alexis Bush MD [address] [place] [id number] Consulting Physician INTERVENTIONAL CARDIOLOGY 01/09/21 Familia Ford APRN [address] [address] Nurse Practitioner NURSE PRACTITIONER 01/09/21 Dhaval Dyer MD [address] [place] [address] Consulting Physician CLINICAL CARDIAC ELECTROPHYSIOLOGY 05/08/23 documented as of this encounter
--- OUTSIDE RECORDS SUMMARY | 2025-01-09 15:34 | XMS_ITS | Encounter Summary ---
Author Organization [facility] Address [address] [place] [address] Care Team Providers Care Carport Erector Name Role Phone Puma Coronado MD Unavailable Edu Saavedra MD Unavailable Unavailab Alexis Deras MD Unavailable [phone] Familia Ford APRN Unavailable [phone] Nicho Posada MD Primary Care Provider + [phone] Raghavendra Kimble MD Unavailable [phone] Dhaval Dyer MD Unavailable Encounter Details Date Type Department Care Team (Late st Contact Info) Description 01/30/2018 Abstract [facility] CONVERSION [address] [place] [address] , Generic Conversion, Social History Tobacco Use Types Packs/Day Years Used Date Smoking Tobacco: Never Alcohol Use Standard Drinks/Week Comments No 0 (1 standard drink = 0.6 oz pur e alcohol) Sex and Gender Information Value Date Recorded Sex Assigned at Male 12/16/2024 1:31 PM ASSEMBLER MECHANICAL ORDNANCE Legal Sex Male 9:51 PM CDT Gender Identity Male 02/24/2022 7:56 AM CDT Sexual Orientation Not on file documented as of this encounter Plan of Treatment Upcoming Encounters Date Type Department Care Team (Late Contact Info) Description 02/02/2025 3:30 AM CDT Allied Health/Nurse Visit [facility] [address] [place] [phone] Dhaval Dyer MD [address] [place] [address] 02/10/2025 11:15 AM CDT Office Visit [facility] [address] [place] [address] Servando Kumar, DPM [address] [place] [address] documented as of this encounter Visit Diagnoses Not on filedocumented in this encounter Additional Health Concerns Infection Onset Date Last Indicated Resolved Time COVID-19 Rule Out 10/23/2022 10/23/2022 10/23/2022 1:33 PM ASSEMBLER MECHANICAL ORDNANCE documented as of this encounter Care Teams Carport Erector Relationship Specialty Start Date End Date Nicho Posada MD [address] [place] [id number] PCP - General FAMILY PRACTICE 02/21/22 Puma Coronado MD [address] [place] [address] Mikael Cold Molding Press Operator CARDIOVASCULAR DISEASE 01/28/18 Edu Saavedra MD [address] [place] [address] Consulting Physician SURGERY 01/28/18 Alexis Bush MD [address] [place] [address] Consulting Physician INTERVENTIONAL CARDIOLOGY 01/09/21 Familia Ford APRN [address] [place] [address] Nurse Practitioner NURSE PRACTITIONER 01/09/21 Raghavendra Kimble MD [address] [place] [address] HOSPITALIST 10/24/22 01/13/23 Dhaval Dyer MD [address] [place] [address] Consulting Physician CLINICAL CARDIAC ELECTROPHYSIOLOGY 05/08/23 documented as of this encounter
[2025-01-09 19:55] LABS: Anion Gap 10 mmol/L (4-12); Blood Urea Nitrogen 61 mg/dL (9-20); Calcium 9.2 mg/dL (8.4-10.2); Carbon Dioxide 28 mmol/L (22-30); Chloride 101 mmol/L (98-107); Estimated Glomerular Filt Rate 43; Glucose 130 mg/dL (65-110); Sodium 139 mmol/L (137-145)
== END 2025-01-09 13:36 | disposition home or self-care (01) ==
LOC: ANHGOSHLAB 13:36
PROVIDERS: PCP Family Medicine; Visit Provider Nurse Practitioner Family
DX: E87.5 Hyperkalemia (principal)
CPT/HCPCS: 36415; 80048

== ENCOUNTER 2025-03-31 00:55 | Day surgery (SDC) | payer BC, SELFPAY ==
[2025-03-23 14:36] VITALS: BMI 27.1
--- OUTSIDE RECORDS SUMMARY | 2025-03-31 00:58 | XMS_ITS | Encounter Summary ---
Author Organization [facility] Address [address] [place] [address] Phone Care Team Providers Care Cnc Cutting Operator Name Role Phone María Ochoa APRN, BLAST FURNACE OPERATOR Unavailable [phone] Nicho Posada MD Primary Care Provider [phone]- [phone] Gregoroi Garza DPM Unavailable Unavailable Encounter Details Date Type Department Care Team (Late st Contact Info) Description 12/23/2022 Lab Requisition 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 No / Unsure 12/11/2022 11:16 AM LOAN UNDERWRITER documented as of this encounter Plan of Treatment Not on file documented as of this encounter Procedures Procedure Name Priority Date/Time Associated Diagnosis Comments BASIC METABOLIC PANEL W/ CALCIUM TOTAL Routine 12/23/2022 7:25 AM LOAN UNDERWRITER Chronic kidney disease, unspecified documented in this encounter Results * (ABNORMAL) BASIC METABOLIC PANEL W/ CALCIUM TOTAL (12/23/2022 7:25 AM LOAN UNDERWRITER) SODIUM 139 133 - 145 mmol/L 12/23/2022 11:03 AM [facility] POTASSIUM 3.9 3.5 - 5.1 mmol/L 12/23/2022 11:03 AM [facility] CHLORIDE 103 96 - 108 mmol/L 12/23/2022 11:03 AM [facility] CO2, VENOUS 28 21 - 32 mmol/L 12/23/2022 11:03 AM [facility] ANION GAP 11.9 10.0 - 20.0 mmol/L 12/23/2022 11:03 AM [facility] GLUCOSE 188(H) 83 - 110 mg/dL 12/23/2022 11:03 AM [facility] BUN 23(H) 6 - 19 mg/dL 12/23/2022 11:03 AM [facility] CREATININE, BLOOD 1.50(H) 0.50 - 1.30 mg/dL 12/23/2022 11:03 AM [facility] BUN/CREATININE RATIO 15 12 - 20 ratio 12/23/2022 11:03 AM [facility] CALCIUM 8.8 8.8 - 10.0 mg/dL 12/23/2022 11:03 AM [facility] GFR, ESTIMATED 49 12/23/2022 11:03 AM [facility] Comment: This eGFR is calculated using 2020 [...] Blood Venipuncture / Unknown 12/23/2022 7:25 AM LOAN UNDERWRITER 12/23/2022 8:21 AM LOAN UNDERWRITER us Raghavendra Kimble MD CHEMISTRY ORDERABLES Final Resul t [facility] [address] [place] [address] documented in this encounter Visit Diagnoses Diagnosis Chronic kidney disease, unspecified documented in this encounter Additional Health Concerns Assessment Noted Time PHQ-9 Depression Total Score: 0 08/05/20 3:00 PM CDT documented as of this encounter Care Teams Cnc Cutting Operator Relationship Specialty Start Date End Date Nicho Posada MD [address] [place] [address] [address] [place] [address] PCP - General Family Medicine 01/08/22 María Ochoa APRN, BLAST FURNACE OPERATOR [address] [place] [address] Referring Provider Advanced Practice Nurse 05/01/21 Gregorio Garza DPM [address] [place] [address] [address] [place] [address] Consulting Physician Podiatry 07/03/22 documented as of this encounter
--- OUTSIDE RECORDS SUMMARY | 2025-03-31 00:58 | XMS_ITS | Encounter Summary ---
Author Organization [facility] Address [address] [place] [address] Phone Care Team Providers Care Control And Recovery Combat Rescue Name Role Phone María Ochoa APRN, AUTOMOBILE TAILLIGHT ASSEMBLER Unavailable [phone] Nicho Posada MD Primary Care Provider [phone] Gregorio Garza DPM Unavailable Unavailable Encounter Details Date Type Department Care Team (Late st Contact Info) Description 10/31/[address] 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 No / Unsure 10/29/2022 10:33 AM SAMPLES AND REPAIRS PREPARER documented as of this encounter Plan of Treatment Not on file documented as of this encounter Procedures Procedure Name Priority Date/Time Associated Diagnosis Comments URINALYSIS MICROSCOPIC IF INDICATED Routine 10/31/2022 9:00 PM SAMPLES AND REPAIRS PREPARER UR PROTEIN/CREATININE RATIO Routine 10/31/2022 9:00 PM SAMPLES AND REPAIRS PREPARER UR MICROALBUMIN/CREATIN INE RATIO RANDOM Routine 10/31/2022 9:00 PM SAMPLES AND REPAIRS PREPARER documented in this encounter Results * (ABNORMAL) URINALYSIS MICROSCOPIC IF INDICATED (10/31/2022 9:00 PM SAMPLES AND REPAIRS PREPARER) SPECIFIC GRAVITY 1.016 1.003 - 1.035 11/01/2022 7:47 AM [facility] URINE PH 5.5 5.0 - 8.0 11/01/2022 7:47 AM [facility] WBC ESTERASE Negative Negative 11/01/2022 7:47 AM [facility] NITRITE Negative Negative 11/01/2022 7:47 AM [facility] PROTEIN, RANDOM URINE 1+(A) Negative 11/01/2022 7:47 AM [facility] URINE GLUCOSE, QUAL 3+(A) Negative 11/01/2022 7:47 AM [facility] URINE KETONES Negative Negative 11/01/2022 7:47 AM [facility] UROBILINOGEN <2.0 <2.0 mg/dL 11/01/2022 7:47 AM [facility] URINE BILIRUBIN Negative Negative 7:47 AM [facility] URINE BLOOD Negative Negative jamie/ul 11/01/2022 7:47 AM [facility] URINALYSIS COLOR Yellow Yellow 11/01/20 7:47 AM [facility] URINALYSIS CLARITY Clear Clear 11/01/2022 7:47 AM [facility] WBC (Urine) 0-5 0-5, Negative /hpf 11/01/2022 7:47 AM [facility] URINE RBC'S 0-5 0-5, Negative, None /hpf 11/01/2022 7:47 AM [facility] URINE MUCOUS Rare None, Rare, Few 11/01/2022 7:47 AM [facility] DMH RENAL EPI CELLS 11/01/2022 7:47 AM [facility] URINE SPERM 11/01/2022 7:47 AM [facility] URINE TRICHOMONAS 11/01/2022 7:47 AM [facility] URINE YEAST 11/01/2022 7:47 AM [facility] Urine Non-Phlebotomy Collection / Unknown 10/31/2022 9:00 PM SAMPLES AND REPAIRS PREPARER 10/31/2022 11:40 PM SAMPLES AND REPAIRS PREPARER us Brian Madsen MD URINE ORDERABLES Edited Re sult - Final Performing Organization Address City/[facility]/ZIP Co de Phone Number [place] [phone] * (ABNORMAL) UR MICROALBUMIN/CREATININE RATIO RANDOM (10/31/2022 9:00 PM SAMPLES AND REPAIRS PREPARER) CREATININE URINE 119.0 >=0.0 mg/dL 11/01/2022 12:15 AM [facility] ALB/CREAT RATIO 256(H) 0 - 29 mg/g CRE 11/01/2022 12:15 AM [facility] Comment: Per ADA recommendations: Microalbumin/Creatinine Ratio <30 = normal, 30-300 = microalbuminuria, >300 = clinical albuminuria. Classification is based on at least 2 of 3 abnormal results within 3-[address] [facility] MALB RANDOM UR 305.0 mg/L 11/01/2022 12:15 AM [facility] Urine Non-Phlebotomy Collection / Unknown 10/31/2022 9:00 PM SAMPLES AND REPAIRS PREPARER 10/31/2022 11:39 PM SAMPLES AND REPAIRS PREPARER us Brian Madsen MD URINE ORDERABLES Final Res ult Performing Organization Address City/[facility]/ZIP Co de Phone Number [facility] [address] [place] [address] * (ABNORMAL) UR PROTEIN/CREATININE RATIO (10/31/2022 9:00 PM SAMPLES AND REPAIRS PREPARER) UR PROTEIN RAND, QT 88.1(H) 0.0 - 14.0 mg/dL 11/01/2022 12:51 AM SAMPLES AND REPAIRS PREPARER [facility] URINE CREATININE 119.0 mg/dL 11/01/2022 12:51 AM SAMPLES AND REPAIRS PREPARER [facility] URINE PROTEIN/CREATIN INE RATIO 0.74 11/01/2022 12:51 AM SAMPLES AND REPAIRS PREPARER [facility] Comment: Ratio calculation: Protein(mg/dl)/Creatinine(mg/dl). No reference range available. Urine Non-Phlebotomy Collection / Unknown 10/31/2022 9:00 PM SAMPLES AND REPAIRS PREPARER 10/31/2022 11:39 PM SAMPLES AND REPAIRS PREPARER us Brian Madsen MD URINE ORDERABLES Final Res ult [facility] [address] [place], [place] [id number] documented in this encounter Visit Diagnoses Diagnosis Chronic kidney disease, stage 3 unspecified (HCC) documented in this encounter Additional Health Concerns Assessment Noted Time PHQ-9 Depression Total Score: 0 08/05/20 21 3:00 PM CDT documented as of this encounter Care Teams Control And Recovery Combat Rescue Relationship Specialty Start Date End Date Nicho Posada MD [address] [place] [address] [address] [place] [address] PCP - General Family Medicine 01/08/22 María Ochoa APRN, AUTOMOBILE TAILLIGHT ASSEMBLER [address] [place] [address] Referring Provider Advanced Practice Nurse 05/01/21 Gregorio Garza DPM [address] [place] [address] [address] [place] [address] Consulting Physician Podiatry 07/03/22 documented as of this encounter
--- OUTSIDE RECORDS SUMMARY | 2025-03-31 00:58 | XMS_ITS | Encounter Summary ---
Author Organization [facility] Address [address] [place] [address] Phone Care Team Providers Care Branch Banker Name Role Phone María Ochoa APRN, COOPER APPRENTICE Unavailable [phone] Nicho Posada MD Primary Care Provider [phone] Gregorio Garza DPM Unavailable Unavailable Encounter Details Date Type Department Care Team (Late st Contact Info) Description 10/31/2022 Lab Requisition [facility] Laboratory Services [address] [place] [address] Brian Madsen MD [address] [place] [address] Chronic kidney disease, stage 3 unspecified (HCC) Social History Tobacco Use Types Packs/Day Years Used Date Smoking Tobacco: Never Smokeless Tobacco: Never Alcohol Use Standard Drinks/Week Comments Yes 1 (1 standard drink = 0.6 oz pure alcohol) 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 No / Unsure 10/29/2022 10:33 AM UNIT CONTROL CLERK documented as of this encounter Plan of [...] documented as of this encounter Care Teams Branch Banker Relationship Specialty Start Date End Date Nicho Posada MD [facility] [employer] [address] [place] [address] PCP - General Family Medicine 01/08/22 María Ochoa APRN, COOPER APPRENTICE [address] [place] [address] Referring Provider Advanced Practice Nurse 05/01/21 Gregorio Garza DPM [facility] [place] [address] Consulting Physician Podiatry 07/03/22 documented as of this encounter
--- OUTSIDE RECORDS SUMMARY | 2025-03-31 00:58 | XMS_ITS | Encounter Summary ---
Author Organization [facility] Address [address] [place] [address] Phone Care Team Providers Care Men'S Leather Dress Belt Maker Name Role Phone María Ochoa APRN, AMA Unavailable [phone] Nicho Posada MD Primary Care Provider [phone]- [phone] Gregorio Garza DPM Unavailable Unavailable Encounter Details Date Type Department Care Team (Late st Contact Info) Description 10/30/2022 Lab Requisition [facility] Laboratory Services [address] [place] [address] Raghavendra Kimble MD [address] [place] [address] Syncope and collapse Social History Tobacco Use Types Packs/Day Years Used Date Smoking Tobacco: Never Smokeless Tobacco: Never Alcohol Use Standard Drinks/Week Comments Yes 1 (1 standard drink = 0.6 oz pure alcohol) wine , 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 No / Unsure 10/29/2022 10:33 AM DRUM REEL CUTTER documented as of this encounter Plan of Treatment Not on file documented as of this encounter Procedures Procedure Name Priority Date/Time Associated Diagnosis Comments CBC WITH AUTO DIFFERENTIAL Routine 10/30/2022 8:15 AM DRUM REEL CUTTER Syncope and collapse COMPLETE BLOOD COUNT (CBC) WITH DIFF Routine 10/30/2022 8:15 AM DRUM REEL CUTTER Syncope and collapse BASIC METABOLIC PANEL W/ CALCIUM TOTAL Routine 10/30/2022 8:15 AM DRUM REEL CUTTER Syncope and collapse ALBUMIN Routine 10/30/2022 8:15 AM DRUM REEL CUTTER Syncope and collapse ADJUSTED CALCIUM*SAMC Routine 10/30/2022 8:15 AM DRUM REEL CUTTER Syncope and collapse documented in this encounter Results * (ABNORMAL) ALBUMIN (10/30/2022 8:15 AM DRUM REEL CUTTER) ALBUMIN 2.5(L) 3.4 - 4.8 g/dL 10/30/2022 12:02 PM DRUM REEL CUTTER [facility] Blood Venipuncture / Unknown 10/30/2022 8:15 AM DRUM REEL CUTTER 10/30/2022 10:36 AM DRUM REEL CUTTER us Raghavendra Kimble MD CHEMISTRY ORDERABLES Final Resul t Performing Organization Address City/State/[facility] Co de Phone Number [facility] [address] [place] [address] * ADJUSTED CALCIUM*SAMC (10/30/2022 8:15 AM DRUM REEL CUTTER) ADJUSTED CALCIUM 9.9 8.8 - 10.0 mg/dL 10/30/2022 12:03 PM DRUM REEL CUTTER [facility] Blood Venipuncture / Unknown 10/30/2022 8:15 AM DRUM REEL CUTTER 10/30/2022 10:36 AM DRUM REEL CUTTER us Raghavendra Kimble MD CHEMISTRY ORDERABLES Final Resul t [facility] [address] [place] [address] * (ABNORMAL) CBC WITH AUTO DIFFERENTIAL (10/30/2022 8:15 AM [facility]) WBC 9.16 3.90 - 11.00 10(3)/mcL 10/30/2022 11:41 AM [facility] RBC 4.06(L) 4.20 - 5.80 10(6)/mcL 10/30/2022 11:41 AM [facility] HEMOGLOBIN (HGB) 11.3(L) 12.6 - 17.4 g/dL 10/30/2022 11:41 AM [facility] HEMATOCRIT (HCT) 35.3(L) 39.8 - 52.2 % 10/30/2022 11:41 AM [facility] MCV 86.9 80.0 - 100.0 fL 10/30/2022 11:41 AM [facility] MCH 27.8 26.5 - 33.9 pg 10/30/2022 11:41 AM [facility] MCHC 32.0 31.5 - 36.0 g/dL 10/30/2022 11:41 AM [facility] PLATELET COUNT 345 140 - 445 10(3)/mcL 10/30/2022 11:41 AM [facility] MPV 9.2 >=0.0 fL 10/30/2022 11:41 AM [facility] RDW 14.0 12.0 - 15.0 % 10/30/2022 11:41 AM [facility] NEUTROPHILS 72.2 % 10/30/2022 11:41 AM [facility] LYMPHOCYTES 11.7 % 10/30/2022 11:41 AM [facility] MONOCYTES 11.1 % 10/30/2022 11:41 AM [facility] EOSINOPHILS 3.7 % 10/30/2022 11:41 AM [facility] IMMATURE GRANULOCYTE % 0.9 % 10/30/2022 11:41 AM [facility] BASOPHILS 0.4 % 10/30/2022 11:41 AM [facility] ABSOLUTE NEUTROPHILS 6.61 1.40 - 7.30 10(3)/[facility] 10/30/2022 11:41 AM [facility] ABSOLUTE LYMPHOCYTES 1.07(L) 1.30 - 2.90 10(3)/mcL 10/30/2022 11:41 AM [facility] ABSOLUTE MONOCYTES 1.02(H) 0.10 - 0.80 10(3)/mcL 10/30/2022 11:41 AM [facility] ABSOLUTE EOSINOPHIL 0.34(H) 0.00 - 0.30 10(3)/[facility] 10/30/2022 11:41 AM [facility] ABSOLUTE BASOPHILS 0.04 0.00 - 0.10 10(3)/[facility] 10/30/2022 11:41 AM [facility] ABSOLUTE IMMATURE GRANULOCYTE 0.08 0.00 - 0.10 10 (3) mcL. 10/30/2022 11:41 AM [facility] NRBC PER 100 WBC 0.0 0.0 - 0.0 % 10/30/2022 11:41 AM [facility] ABSOLUTE NRBC 0.00 10 (3) mcL. 10/30/2022 11:41 AM [facility] Blood Venipuncture / Unknown 10/30/2022 8:15 AM [facility] 10/30/2022 10:36 AM [facility] us Raghavendra Shyanne VILLARREAL HEMATOLOGY ORDERABLES Final Resu lt [facility] [address] [place] [address] * (ABNORMAL) BASIC METABOLIC PANEL W/ CALCIUM TOTAL (10/30/2022 8:15 AM [facility]) SODIUM 138 133 - 145 mmol/L 10/30/2022 11:55 AM [facility] POTASSIUM 4.3 3.5 - 5.1 mmol/L 10/30/2022 11:55 AM [facility] CHLORIDE 108 96 - 108 mmol/L 10/30/2022 11:55 AM [facility] CO2, VENOUS 24 21 - 32 mmol/L 10/30/2022 11:55 AM [facility] ANION GAP 10.3 10.0 - 20.0 mmol/L 10/30/2022 11:55 AM [facility] GLUCOSE 243(H) 83 - 110 mg/dL 10/30/2022 11:55 AM [facility] BUN 23(H) 6 - 19 mg/dL 10/30/2022 11:55 AM [facility] CREATININE, BLOOD 1.40(H) 0.50 - 1.30 mg/dL 10/30/2022 11:55 AM [facility] BUN/CREATININE RATIO 16 12 - 20 ratio 10/30/2022 11:55 AM [facility] CALCIUM 8.7(L) 8.8 - 10.0 mg/dL 10/30/2022 11:55 AM [facility] Comment:Calcium low. Correct ed calcium to follow. GFR, ESTIMATED 53 10/30/2022 11:55 AM [facility] Comment: This eGFR is calculated using [...] Blood Venipuncture / Unknown 10/30/2022 8:15 AM DRUM REEL CUTTER 10/30/2022 10:36 AM [facility] us Raghavendra Kimble MD CHEMISTRY ORDERABLES Final Resul t [facility] [address] [place] [address] documented in this encounter Visit Diagnoses Diagnosis Syncope and collapse documented in this encounter Additional Health Concerns Assessment Noted Time PHQ-9 Depression Total Score: 0 08/05/20 3:00 PM CDT documented as of this encounter Care Teams Men'S Leather Dress Belt Maker Relationship Specialty Start Date End Date Nicho Posada MD [facility] [employer] [address] [place] [address] PCP - General Family Medicine 01/08/22 María Ochoa APRN, HOUSEKEEPING ATTENDANT [address] [place] [address] Referring Provider Advanced Practice Nurse 05/01/21 Gregorio Garza DPM [address] [place] [address] Consulting Physician Podiatry 07/03/22 documented as of this encounter
--- OUTSIDE RECORDS SUMMARY | 2025-03-31 00:58 | XMS_ITS | Encounter Summary ---
Author Organization [facility] Address [address] [place] [address] Phone Care Team Providers Care Principal Scientist Name Role Phone Mark Mai DPM Unavailable Unavailab María Haile AWNING HANGER, LOADER Unavailable [phone] Nicho Posada MD Primary Care Provider [phone] Gregorio Garza DPM Unavailable Unavailable Reason for Visit * Reason Comments Medication Refill Encounter Details Date Type Department Care Team (Late st Contact Info) Description 02/21/2022 Refill [facility] [address] [place] [address] Brian Madsen MD [facility] [place] [address] Medication Refill Social History Tobacco Use Types Packs/Day Years Used Date Smoking Tobacco: Never Smokeless Tobacco: Never Alcohol Use Standard Drinks/Week Comments Yes 1 (1 standard drink = 0.6 oz pur e alcohol) Living Coach PHQ-2 Answer Date Recorded Total Score - [...] documented as of this encounter Care Teams Principal Scientist Relationship Specialty Start Date End Date Nicho Posada MD [facility] [place] [address] PCP - General Family Medicine 01/08/22 Mark Mai DPM Consulting Physician Podiatry 07/25/16 07/31/22 María Ochoa, TYRA, LOADER [address] [place] [address] Referring Provider Advanced Practice Nurse 05/01/21 Gregorio Garza DPM [facility] [place] [address] Consulting Physician Podiatry 07/03/22 documented as of this encounter
--- OUTSIDE RECORDS SUMMARY | 2025-03-31 00:58 | XMS_ITS | Encounter Summary ---
Author Organization [facility] Address [address] [place] [address] Phone Care Team Providers Care Bag Hanger Name Role Phone María Ochoa APRN, INSTRUMENT TECH Unavailable [phone] Nicho Posada MD Primary Care Provider [phone] Gregorio Garza DPM Unavailable Unavailable Reason for Visit * Reason Comments Medication Refill Encounter Details Date Type Department Care Team (Late st Contact Info) Description 11/07/2022 Refill [facility] [address] [place] [address] Brian Madsen MD [address] [place] [address] Medication Refill Social History Tobacco Use Types Packs/Day Years Used Date Smoking Tobacco: Never Smokeless Tobacco: Never Alcohol Use Standard Drinks/Week Comments Yes 1 (1 standard drink = 0.6 oz pure alcohol) 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 No / Unsure 10/29/2022 10:33 AM SHORER documented as of this encounter Miscellaneous Notes * Telephone Encounter - Suly Leong RN - 11/11/2022 4:03 PM CST PT CURRENT [place]HAS APPT 11/13 ER documented in this encounter Plan of Treatment Not on file documented as of this encounter Visit Diagnoses Not on filedocumented in this encounter Additional Health Concerns Assessment Noted Time PHQ-9 Depression Total Score: 0 08/05/20 21 3:00 PM CDT documented as of this encounter Care Teams Bag Hanger Relationship Specialty Start Date End Date Nicho Posada MD [address] [place] [address] [employer] [place] [address] PCP - General Family Medicine 01/08/22 María Ochoa, ORACLE APPLICATIONS ANALYST, INSTRUMENT TECH [address] [place] [address] Referring Provider Advanced Practice Nurse 05/01/21 Gregorio Garza DPM [address] [place] [address] [employer] [place] [address] Consulting Physician Podiatry 07/03/22 documented as of this encounter
--- OUTSIDE RECORDS SUMMARY | 2025-03-31 00:58 | XMS_ITS | Encounter Summary ---
Author Organization [facility] Address [address] [place] [address] Phone Care Team Providers Care Teachers Aide Name Role Phone María Ochoa APRN, REGULATORY COORDINATOR Unavailable [phone] Nicho Posada MD Primary Care Provider [phone] Gregorio Garza DPM Unavailable Unavailable Encounter Details Date Type Department Care Team (Late st Contact Info) Description 11/05/2022 Lab Requisition [facility] Laboratory Services [address] [place] [address] Brian Madsen MD [address] [place] [address] Chronic kidney disease, stage 3 unspecified (HCC) Social History Tobacco Use Types Packs/Day Years Used Date Smoking Tobacco: Never Smokeless Tobacco: Never Alcohol Use Standard Drinks/Week Comments Yes 1 (1 standard drink = 0.6 oz pure alcohol) 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 No / Unsure 10/29/2022 10:33 AM TIRE SERVICE TECHNICIAN documented as of this encounter Plan of Treatment Not on file documented as of this encounter Procedures Procedure Name Priority Date/Time Associated Diagnosis Comments BASIC METABOLIC PANEL W/ CALCIUM TOTAL Routine 11/05/2022 7:45 AM TIRE SERVICE TECHNICIAN Chronic kidney disease, stage 3 unspecified (HCC) documented in this encounter Results * (ABNORMAL) BASIC METABOLIC PANEL W/ CALCIUM TOTAL (11/05/2022 7:45 AM TIRE SERVICE TECHNICIAN) SODIUM 136 133 - 145 mmol/L 11/05/2022 10:40 AM [facility] POTASSIUM 4.7 3.5 - 5.1 mmol/L 11/05/2022 10:40 AM [facility] CHLORIDE 103 96 - 108 mmol/L 11/05/2022 10:40 AM [facility] CO2, VENOUS 27 21 - 32 mmol/L 11/05/2022 10:40 AM [facility] ANION GAP 10.7 10.0 - 20.0 mmol/L 11/05/2022 10:40 AM [facility] GLUCOSE 225(H) 83 - 110 mg/dL 11/05/2022 10:40 AM [facility] BUN 31(H) 6 - 19 mg/dL 11/05/2022 10:40 AM [facility] CREATININE, BLOOD 1.40(H) 0.50 - 1.30 mg/dL 11/05/2022 10:40 AM [facility] BUN/CREATININE RATIO 22(H) 12 - 20 ratio 11/05/2022 10:40 AM [facility] CALCIUM 8.9 8.8 - 10.0 mg/dL 11/05/2022 10:40 AM [facility] GFR, ESTIMATED 53 11/05/2022 10:40 AM [facility] Comment: This eGFR is calculated [...] Blood Venipuncture / Unknown 11/05/2022 7:45 AM TIRE SERVICE TECHNICIAN 11/05/2022 9:34 AM TIRE SERVICE TECHNICIAN us Brian Madsen MD CHEMISTRY ORDERABLES Final Result Performing Organization Address City/State/[facility] Co de Phone Number [facility] [address] [place] [address] documented in this encounter Visit Diagnoses Diagnosis Chronic kidney disease, stage 3 unspecified (HCC) documented in this encounter Additional Health Concerns Assessment Noted Time PHQ-9 Depression Total Score: 0 08/05/20 21 3:00 PM CDT documented as of this encounter Care Teams Teachers Aide Relationship Specialty Start Date End Date Nicho Posada MD [facility] [employer] [address] [place] [address] PCP - General Family Medicine 01/08/22 María Ochoa APRN, REGULATORY COORDINATOR [address] [place] [address] Referring Provider Advanced Practice Nurse 05/01/21 Gregorio Garza DPM [address] [place] [address] Consulting Physician Podiatry 07/03/22 documented as of this encounter
--- OUTSIDE RECORDS SUMMARY | 2025-03-31 00:58 | XMS_ITS | Encounter Summary ---
Author Organization [facility] Address [address] [place] [address] Phone Care Team Providers Care Relief Captain Name Role Phone María Ochoa APRN, LICENSED MARRIAGE AND FAMILY THERAPIST Unavailable [phone] Nicho Posada MD Primary Care Provider [phone] Gregorio Garza DPM Unavailable Unavailable Reason for Visit * Reason Comments Medication Refill Encounter Details Date Type Department Care Team (Late st Contact Info) Description 08/18/2022 Refill [facility] [address] [place] [address] Brian Madsen MD [address] [place] [address] Medication Refill Social History Tobacco Use Types Packs/Day Years Used Date Smoking Tobacco: Never Smokeless Tobacco: Never Alcohol Use Standard Drinks/Week Comments Yes 1 (1 standard drink = 0.6 oz pur e alcohol) Wire Photo Operator PHQ-2 Answer Date Recorded Total Score - [...] CDT Requested Prescriptions Pending Prescriptions Disp Refills â€¢ amLODIPine (NORVASC) 5 MG Tablet [Pharmacy Med [...] documented as of this encounter Care Teams Relief Captain Relationship Specialty Start Date End Date Nicho Posada MD [address] [place] [address] [employer] [address] [place] [address] PCP - General Family Medicine 01/08/22 María Ochoa APRN, LICENSED MARRIAGE AND FAMILY THERAPIST [address] [place] [address] Referring Provider Advanced Practice Nurse 05/01/21 Gregorio Garza DPM [address] [place] [address] [address] [place] [address] Consulting Physician Podiatry 07/03/22 documented as of this encounter
--- OUTSIDE RECORDS SUMMARY | 2025-03-31 00:58 | XMS_ITS | Clinical Summary ---
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 07/11/2019 Chest pain 07/11/2019 CKD (chronic kidney disease) stage 3, GFR 30-59 ml/min 07/11/2019 Nuclear sclerotic cataract of left eye 8 Overview (07/27/2018): RIGHT CATARACT SURGERY [facility] Diabetic polyneuropathy asso ciated with type 2 diabetes mellitus 02/25/2018 Paronychia of great toe, right 10/15/2017 Skin ulceration 04/30/2017 Onychogryposis 08/21/2016 Type II diabetes mellitus with peripheral angiop athy Kennedy or callus Family History Medical History Relation [...] 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 PHQ-2 Answer Date Recorded Total Score - Questions 1-9 0 09/1 03/2022 Sexually Active Control Partners Comments Never Sex and Gender Information Value Date Recorded Sex Assigned at Not on file Legal Sex Male 10:55 AM CDT Gender Identity Not on file Sexual Orientation Not on file Last Filed Vital Signs Vital Sign Reading Time Taken Comments Blood Pressure 142/84 01/01/2023 10:58 AM MARINE ENGINE MACHINIST Pulse 85 01/01/2023 10:58 AM MARINE ENGINE MACHINIST Temperature 37 C (98.6 F) 10/13/2022 1:21 PM MARINE ENGINE MACHINIST Respiratory Rate 16 10/01/2022 9:32 AM MARINE ENGINE MACHINIST Oxygen Saturation 96% 10/01/2022 9:32 AM MARINE ENGINE MACHINIST Inhaled Oxygen Concentration - - Weight 122.5 kg (270 lb) 01/01/2023 10:58 AM MARINE ENGINE MACHINIST Height 182.9 cm (6') 01/01/2023 10:58 AM MARINE ENGINE MACHINIST Body Mass Index 36.62 01/01/2023 10:58 AM MARINE ENGINE MACHINIST Plan of Treatment Health Maintenance Due Date [...] this topic Medical Devices Implanted Type Area Tiler'S Assistant Device Identifier Shelf Expiration Date Model / Serial / Lot Iol Toric Sn6at - [id number] Implanted:Qty: 1 on 08/16/2018 by Gregory Jordan MD at [facility] IMPLANT Right: Eye [employer] 01/14/2019 [id number] / [id number] / UNKNOWN Procedures Procedure Name Priority Date/Time Associated Diagnosis Comments UR MICROALBUMIN/CREATI NINE RATIO RANDOM Routine 10/31/2022 9:00 PM MARINE ENGINE MACHINIST HEMOGLOBIN A1C W/ ESTIMATED GLUCOSE Routine 10/09/2021 11:03 AM MARINE ENGINE MACHINIST Type 2 diabetes with nephropathy (HCC) from Last 3 Months or Most Recently Relevant to Health Maintenance Results * (ABNORMAL) UR MICROALBUMIN/CREATININE RATIO RANDOM (10/31/2022 9:00 PM MARINE ENGINE MACHINIST) CREATININE URINE 119.0 >=0.0 mg/dL 11/01/2022 12:15 AM MARINE ENGINE MACHINIST [facility] ALB/CREAT RATIO 256(H) 0 - 29 mg/g CRE 11/01/2022 12:15 AM MARINE ENGINE MACHINIST [facility] Comment: Per ADA recommendations: Microalbumin/Creatinine Ratio <30 = normal, 30-300 = microalbuminuria, >300 = clinical albuminuria. Classification is based on at least 2 of 3 abnormal results within 3-6 months. [facility] MALB RANDOM UR 305.0 mg/L 11/01/2022 12:15 AM MARINE ENGINE MACHINIST [facility] Urine Non-Phlebotomy Collection / Unknown 10/31/2022 9:00 PM MARINE ENGINE MACHINIST 10/31/2022 11:39 PM MARINE ENGINE MACHINIST us Brian Madsen MD URINE ORDERABLES Final Res ult [facility] [address] [place] [address] * (ABNORMAL) HEMOGLOBIN A1C W/ ESTIMATED GLUCOSE (10/09/2021 11:03 AM MARINE ENGINE MACHINIST) HGB-A1C 8.0(H) 4.0 - 6.0 % 10/09/2021 2:06 PM MARINE ENGINE MACHINIST [facility] Est Average Glucose 182.9 mg/dL 10/09/2021 2:06 PM MARINE ENGINE MACHINIST [facility] Blood Venipuncture / Unknown 10/09/2021 11:03 AM MARINE ENGINE MACHINIST 10/09/2021 1:52 PM MARINE ENGINE MACHINIST Narrative [facility] - 10/09/2021 2:06 PM MARINE ENGINE MACHINIST HEMOGLOBIN A1C: DIABETIC PATIENTS: WELL-CONTROLLED: 6.2 - 7.0 INTERMEDIATE WELL-CONTROLLED: 7.0 - 9.0 POORLY-CONTROLLED: >9.0 Vladimir Luis MD CHEMISTRY ORDERABLES Catia serrato Result [facility] [address] [place] [address] from Last 3 Months or Most Recently Relevant to Health Maintenance Insurance [employer] MEDICARE [employer] Advance Directives * Full Code (Latest Code Status on File) Date Activated Date Inactivated Comments 07/11/2019 6:52 PM 07/13/2019 6:23 PM CPR-Full Jacek atment: FULL ARREST: Attempt Resuscitation/CPR wit intubation and mechanical ventilation. PRE-ARREST: Use entire range of life support measures to stabilize the patient. Care Teams Freight Associate Relationship Specialty Start Date End Date Nicho Posada MD [address] [place] [address] [address] [place] [address] PCP - General Family Medicine 01/08/22 María Ochoa, COUNTER TOP ASSEMBLER, CERTIFIED CODING SPECIALIST [address] [place] [address] Referring Provider Advanced Practice Nurse 05/01/21 Gregorio Garza DPM [address] [place] [address] [address] [place] [address] Consulting Physician Podiatry 07/03/22
--- OUTSIDE RECORDS SUMMARY | 2025-03-31 00:58 | XMS_ITS | Encounter Summary ---
Author Organization [facility] Address [address] [place] [address] Phone Care Team Providers Care Day Care Worker Name Role Phone María Ochoa APRN, SPRINKLER FITTER HELPER Unavailable [phone] Nicho Posada MD Primary Care Provider [phone] Gregorio Garza DPM Unavailable Unavailable Reason for Visit * Reason Comments Medication Refill Encounter Details Date Type Department Care Team (Late st Contact Info) Description 11/16/2022 Refill [facility] [address] [place] [address] Brian Madsen MD [address] [place] [address] Medication Refill Social History Tobacco Use Types Packs/Day Years Used Date Smoking Tobacco: Never Smokeless Tobacco: Never Alcohol Use Standard Drinks/Week Comments Yes 1 (1 standard drink = 0.6 oz pure alcohol) 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 No / Unsure 11/19/2022 9:28 AM CARTON WRAPPER documented as of this encounter Functional Status * Question Answer Date of Assessment Author Little interest or pleasure in doing things Not at all 11/19/2022 10:00 AM CARTON WRAPPER Suly Leong RN Feeling down, depressed, or hopeless Not at all 11/19/2022 10:00 AM CARTON WRAPPER Suly Leong RN * Over the past 2 weeks, how often have you been bothered by any of the following problems? Question Answer Date of Assessment Author Patient Health Questionnaire-2 Score 0 02/2023 10:00 AM CARTON WRAPPER Suly Leong RN documented as of this encounter Miscellaneous Notes * Telephone Encounter - Suly Leong RN - 11/18/2022 3:06 PM CST PT IS CURRENTLY IN ALF ON WRAPPER documented in this encounter Plan of Treatment Not on file documented as of this encounter Visit Diagnoses Not on filedocumented in this encounter Additional Health Concerns Assessment Noted Time PHQ-9 Depression Total Score: 0 08/05/20 21 3:00 PM CDT documented as of this encounter Care Teams Day Care Worker Relationship Specialty Start Date End Date Nicho Posada MD [address] [place] [address] [employer] [address] [place] [address] PCP - General Family Medicine 01/08/22 María Ochoa APRN, SPRINKLER FITTER HELPER [address] [place] [address] Referring Provider Advanced Practice Nurse 05/01/21 Gregorio Garza DPM [address] [place] [address] [employer] [address] [place] [address] Consulting Physician Podiatry 07/03/22 documented as of this encounter
--- OUTSIDE RECORDS SUMMARY | 2025-03-31 00:58 | XMS_ITS | Encounter Summary ---
Author Organization [facility] Address [address] [place] [address] Phone Care Team Providers Care Engagement Executive Name Role Phone María Ochoa APRN, PSYCHIATRIC TECH Unavailable [phone] Nicho Posada MD Primary Care Provider [phone] Gregorio Garza DPM Unavailable Unavailable Reason for Visit * Reason Comments Medication Refill Encounter Details Date Type Department Care Team (Late st Contact Info) Description 10/17/2022 Refill [facility] [address] [place] [address] Brian Madsen MD [address] [place] [address] Medication Refill Social History Tobacco Use Types Packs/Day Years Used Date Smoking Tobacco: Never Smokeless Tobacco: Never Alcohol Use Standard Drinks/Week Comments Yes 1 (1 standard drink = 0.6 oz pure alcohol) 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 No / Unsure 10/13/2022 1:07 PM QUANTITY SURVEYOR documented as of this encounter Plan of Treatment Not on file documented as of this encounter Visit Diagnoses Not on filedocumented in this encounter Additional Health Concerns Assessment Noted Time PHQ-9 Depression Total Score: 0 08/05/20 21 3:00 PM CDT documented as of this encounter Care Teams Engagement Executive Relationship Specialty Start Date End Date Nicho Posada MD [facility] [employer] [address] [place] [address] PCP - General Family Medicine 01/08/22 María Ochoa APRN, PSYCHIATRIC TECH [address] [place] [address] Referring Provider Advanced Practice Nurse 05/01/21 Gregorio Garza DPM [facility] [place] [address] Consulting Physician Podiatry 07/03/22 documented as of this encounter
--- OUTSIDE RECORDS SUMMARY | 2025-03-31 00:58 | XMS_ITS | Encounter Summary ---
Author Organization [facility] Address [address] [place] [address] Phone Care Team Providers Care Noteman Name Role Phone María Ochoa APRN, BIOINFORMATICS SPECIALIST Unavailable [phone] Nicho Posada MD Primary Care Provider [phone] Gregorio Garza DPM Unavailable Unavailable Encounter Details Date Type Department Care Team (Late st Contact Info) Description 12/15/[address] 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 No / Unsure 12/11/2022 11:16 AM EYEGLASS FRAMES POLISHER documented as of this encounter Plan of Treatment Not on file documented as of this encounter Procedures Procedure Name Priority Date/Time Associated Diagnosis Comments BASIC METABOLIC PANEL W/ CALCIUM TOTAL Routine 12/15/2022 10:35 AM EYEGLASS FRAMES POLISHER Chronic kidney disease, unspecified ALBUMIN Routine 12/15/2022 10:35 AM EYEGLASS FRAMES POLISHER Chronic kidney disease, unspecified ADJUSTED CALCIUM*[facility]C Routine 12/15/2022 10:35 AM EYEGLASS FRAMES POLISHER Chronic kidney disease, unspecified documented in this encounter Results * (ABNORMAL) ALBUMIN (12/15/2022 10:35 AM EYEGLASS FRAMES POLISHER) ALBUMIN 2.6(L) 3.4 - 4.8 g/dL 12/15/2022 1:58 PM EYEGLASS FRAMES POLISHER [facility] Blood Venipuncture / Unknown 12/15/2022 10:35 AM EYEGLASS FRAMES POLISHER 12/15/2022 12:10 PM EYEGLASS FRAMES POLISHER us Raghavendra Kimble MD CHEMISTRY ORDERABLES Final Resul t Performing Organization Address [facility] Co de Phone Number [address] [address] * ADJUSTED CALCIUM*SAMC (12/15/2022 10:35 AM EYEGLASS FRAMES POLISHER) ADJUSTED CALCIUM 9.5 8.8 - 10.0 mg/dL 12/15/2022 2:07 PM EYEGLASS FRAMES POLISHER [facility] Blood Venipuncture / Unknown 12/15/2022 10:35 AM EYEGLASS FRAMES POLISHER 12/15/2022 12:10 PM EYEGLASS FRAMES POLISHER us Raghavendra Kimble MD CHEMISTRY ORDERABLES Final Resul t Performing Organization Address City/[facility] Co de Phone Number [address] [address] * (ABNORMAL) BASIC METABOLIC PANEL W/ CALCIUM TOTAL (12/15/2022 10:35 AM EYEGLASS FRAMES POLISHER) SODIUM 136 133 - 145 mmol/L 12/15/2022 1:51 PM [facility] POTASSIUM 3.9 3.5 - 5.1 mmol/L 12/15/2022 1:51 PM [facility] CHLORIDE 104 96 - 108 mmol/L 12/15/2022 1:51 PM [facility] CO2, VENOUS 26 21 - 32 mmol/L 12/15/2022 1:51 PM [facility] ANION GAP 9.9(L) 10.0 - 20.0 mmol/L 12/15/2022 1:51 PM [facility] GLUCOSE 307(H) 83 - 110 mg/dL 12/15/2022 1:51 PM [facility] BUN 23(H) 6 - 19 mg/dL 12/15/2022 1:51 PM [facility] CREATININE, BLOOD 1.50(H) 0.50 - 1.30 mg/dL 12/15/2022 1:51 PM [facility] BUN/CREATININE RATIO 15 12 - 20 ratio 12/15/2022 1:51 PM [facility] CALCIUM 8.4(L) 8.8 - 10.0 mg/dL 12/15/2022 1:51 PM [facility] Comment:Calcium low. Correct ed calcium to follow. GFR, ESTIMATED 49 12/15/2022 1:51 PM [facility] Comment: This eGFR is calculated using [...] Blood Venipuncture / Unknown 12/15/2022 10:35 AM EYEGLASS FRAMES POLISHER 12/15/2022 12:10 PM EYEGLASS FRAMES POLISHER us Raghavendra Kimble MD CHEMISTRY ORDERABLES Final Resul t [facility] [address] [place] [address] documented in this encounter Visit Diagnoses Diagnosis Chronic kidney disease, unspecified documented in this encounter Additional Health Concerns Assessment Noted Time PHQ-9 Depression Total Score: 0 08/05/20 21 3:00 PM CDT documented as of this encounter Care Teams Noteman Relationship Specialty Start Date End Date Nicho Posada MD [address] [place] [address] PCP - General Family Medicine 01/08/22 María Ochoa APRN, BIOINFORMATICS SPECIALIST [address] [place] [address] Referring Provider Advanced Practice Nurse 05/01/21 Gregorio Garza DPM [address] [place] [address] Consulting Physician Podiatry 07/03/22 documented as of this encounter
--- OUTSIDE RECORDS SUMMARY | 2025-03-31 00:58 | XMS_ITS | Encounter Summary ---
Author Organization [facility] Address [address] [place] [address] Phone Care Team Providers Care Cumulative Effects Analyst Name Role Phone María Ochoa APRN, PROFESSOR OF THEATER Unavailable [phone] Nicho Posada MD Primary Care Provider [phone] Gregorio Garza DPM Unavailable Unavailable Encounter Details Date Type Department Care Team (Latest Contact Info) Description 10/31/[address] 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 No / Unsure 10/29/2022 10:33 AM SNOWBOARDING INSTRUCTOR documented as of this encounter Plan [...] documented as of this encounter Care Teams Cumulative Effects Analyst Relationship Specialty Start Date End Date Nicho Posada MD [address] [place] [address] PCP - General Family Medicine 01/08/22 María Ochoa APRN, PROFESSOR OF THEATER [address] [place] [address] Referring Provider Advanced Practice Nurse 05/01/21 Gregorio Garza DPM [address] [place] [address] Consulting Physician Podiatry 07/03/22 documented as of this encounter
--- OUTSIDE RECORDS SUMMARY | 2025-03-31 00:58 | XMS_ITS | Encounter Summary ---
Author Organization [facility] Address [facility] [place] [address] Care Team Providers Care Instructional Resource Teacher Name Role Phone Puma Coronado MD Unavailable Edu Saavedra MD Unavailable Unavailab Alexis Deras MD Unavailable [phone] Familia Ford APRN Unavailable [phone] Nicho Posada MD Primary Care Provider + [phone] Raghavendra Kimble MD Unavailable [phone] Dhaval Dyer MD Unavailable Encounter Details Date Type Department Care Team (Late st Contact Info) Description 01/30/2018 Abstract [facility] CONVERSION [address] [place] [address] , Generic Conversion, Social History Tobacco Use Types Packs/Day Years Used Date Smoking Tobacco: Never Alcohol Use Standard Drinks/Week Comments No 0 (1 standard drink = 0.6 oz pur e alcohol) Sex and Gender Information Value Date Recorded Sex Assigned at Male 12/16/2024 1:31 PM COMBINING MACHINE OPERATOR Legal Sex Male 9:51 PM CDT Gender Identity Male 02/24/2022 7:56 AM CDT Sexual Orientation Not on file documented as of this encounter Plan of Treatment Upcoming Encounters Date Type Department Care Team (Late st Contact Info) Description 05/12/2025 10:30 AM CDT Office Visit [facility] [address] [place] [address] Servando Kumar, DPM [address] [place] [address] 06/02/2025 3:30 AM CDT Allied Health/Nurse Visit [facility] [address] [place] [address] Dhaval Dyer MD [address] [place] [address] documented as of this encounter Visit Diagnoses Not on filedocumented in this encounter Additional Health Concerns Infection Onset Date Last Indicated Resolved Time COVID-19 Rule Out 10/23/2022 10/23/2022 10/23/2022 1:33 PM COMBINING MACHINE OPERATOR documented as of this encounter Care Teams Instructional Resource Teacher Relationship Specialty Start Date End Date Nicho Posada MD [address] [place] [address] PCP - General FAMILY PRACTICE 02/21/22 Puma Coronado MD [address] [place] [address] Mikael Spinal Surgeon CARDIOVASCULAR DISEASE 01/28/18 Edu Saavedra MD [address] [place] [address] Consulting Physician SURGERY 01/28/18 Alexis Bush MD [address] [place] [address] Consulting Physician INTERVENTIONAL CARDIOLOGY 01/09/21 Familia Ford APRN [address] [place] [address] Nurse Practitioner NURSE PRACTITIONER 01/09/21 Raghavendra Kimble MD [address] [place] [address] HOSPITALIST 10/24/22 01/13/23 Dhaval Dyer MD [address] [place] [address] Consulting Physician CLINICAL CARDIAC ELECTROPHYSIOLOGY 05/08/23 documented as of this encounter
--- OUTSIDE RECORDS SUMMARY | 2025-03-31 00:58 | XMS_ITS | Encounter Summary ---
Author Organization [facility] Address [address] [place] [address] Phone Care Team Providers Care Pump Operator Byproducts Name Role Phone María Ochoa APRN, GLAZING SUPERINTENDENT Unavailable [phone] Nicho Posada MD Primary Care Provider [phone] Gregorio Garza DPM Unavailable Unavailable Encounter Details Date Type Department Care Team (Late st Contact Info) Description 10/31/2022 Lab Requisition [facility] Laboratory Services [address] [place] [address] Brian Madsen MD [address] [place] [address] Chronic kidney disease, stage 3 unspecified (HCC) Social History Tobacco Use Types Packs/Day Years Used Date Smoking Tobacco: Never Smokeless Tobacco: Never Alcohol Use Standard Drinks/Week Comments Yes 1 (1 standard drink = 0.6 oz pure alcohol) 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 No / Unsure 10/29/2022 10:33 AM LABOR RELATIONS CONSULTANT documented as of this encounter Plan of Treatment Not on file documented as of this encounter Procedures Procedure Name Priority Date/Time Associated Diagnosis Comments RENAL FUNCTION PANEL (RFP) Routine 10/31/2022 8:25 AM LABOR RELATIONS CONSULTANT Chronic kidney disease, stage 3 unspecified (HCC) [facility] Routine 10/31/2022 8:25 AM LABOR RELATIONS CONSULTANT Chronic kidney disease, stage 3 unspecified (HCC) documented in this encounter Results * ADJUSTED CALCIUM*[facility] (10/31/2022 8:25 AM LABOR RELATIONS CONSULTANT) ADJUSTED CALCIUM 10.0 8.8 - 10.0 mg/dL 10/31/2022 11:32 AM [facility] Blood Venipuncture / Unknown 10/31/2022 8:25 AM LABOR RELATIONS CONSULTANT 10/31/2022 9:54 AM LABOR RELATIONS CONSULTANT us Brian Madsen MD CHEMISTRY ORDERABLES Final Result [place] [id number] [place] [address] * (ABNORMAL) RENAL FUNCTION PANEL (RFP) (10/31/2022 8:25 AM LABOR RELATIONS CONSULTANT) SODIUM 136 133 - 145 mmol/L 10/31/2022 11:31 AM [facility] POTASSIUM 4.7 3.5 - 5.1 mmol/L 10/31/2022 11:31 AM [facility] CHLORIDE 106 96 - 108 mmol/L 10/31/2022 11:31 AM [facility] CO2, VENOUS 24 21 - 32 mmol/L 10/31/2022 11:31 AM [facility] ANION GAP 10.7 10.0 - 20.0 mmol/L 10/31/2022 11:31 AM [facility] GLUCOSE 275(H) 83 - 110 mg/dL 10/31/2022 11:31 AM [facility] Comment: Venipuncture should occur prior to administration of sulfasalazine and/or sulfapyridine. Glucose can be falsely depressed after administration of sulfasalazine, and falsely elevated with administration of sulfapyridine. BUN 23(H) 6 - 19 mg/dL 10/31/2022 11:31 AM [facility] CREATININE, BLOOD 1.40(H) 0.50 - 1.30 mg/dL 10/31/2022 11:31 AM [facility] BUN/CREATININE RATIO 16 12 - 20 ratio 10/31/2022 11:31 AM [facility] ALBUMIN 2.4(L) 3.4 - 4.8 g/dL 10/31/2022 11:31 AM [facility] CALCIUM 8.7(L) 8.8 - 10.0 mg/dL 10/31/2022 11:31 AM [facility] Comment:Calcium low. Correct ed calcium to follow. PHOSPHORUS 3.5 2.6 - 4.5 mg/dL 10/31/2022 11:31 AM [facility] GFR, ESTIMATED 53 10/31/2022 11:31 AM [facility] Comment: This eGFR is calculated using [...] Blood Venipuncture / Unknown 10/31/2022 8:25 AM LABOR RELATIONS CONSULTANT 10/31/2022 9:54 AM LABOR RELATIONS CONSULTANT us Brian Madsen MD CHEMISTRY ORDERABLES Final Result [facility] [address] [place] [address] documented in this encounter Visit Diagnoses Diagnosis Chronic kidney disease, stage 3 unspecified (HCC) documented in this encounter Additional Health Concerns Assessment Noted Time PHQ-9 Depression Total Score: 0 08/05/20 21 3:00 PM CDT documented as of this encounter Care Teams Pump Operator Byproducts Relationship Specialty Start Date End Date Nicho Posada MD [facility] [email or web address] [address] [place] [address] PCP - General Family Medicine 01/08/22 María Ochoa APRN, GLAZING SUPERINTENDENT [address] [place] [address] Referring Provider Advanced Practice Nurse 05/01/21 Gregorio Garza DPM [address] [facility] [email or web address] [address] [place] [address] Consulting Physician Podiatry 07/03/22 documented as of this encounter
--- OUTSIDE RECORDS SUMMARY | 2025-03-31 00:58 | XMS_ITS | Encounter Summary ---
Author Organization [facility] Address [address] [place] [address] Phone Care Team Providers Care Book Sewing Machine Operator Name Role Phone Vladimir Luis MD Primary Care Provider [phone] Mark Mai DPM Unavailable Unavailab María Haile DIRECTOR OF MEDIA, MECHANICAL ASSEMBLY Unavailable [phone] Nicho Posada MD Primary Care Provider [phone] Gregorio Garza DPM Unavailable Unavailable Reason for Visit * Reason Comments Medication Refill Encounter Details Date Type Department Care Team (Late st Contact Info) Description 11/11/2021 Refill [facility] [address] [place] [address] Brian Madsen MD [facility] [place] [address] Medication Refill Social History Tobacco Use Types Packs/Day Years Used Date Smoking Tobacco: Never Smokeless Tobacco: Never Alcohol Use Standard Drinks/Week Comments Yes 1 (1 standard drink = 0.6 oz pur e alcohol) Other Sales Support Worker PHQ-2 Answer Date Recorded Total Score - [...] COVID-19? No / Unsure 10/31/2021 2:34 PM FISHERIES TECHNICAL OFFICER documented as of this encounter Plan of Treatment Not on file documented as of this encounter Visit Diagnoses Not on filedocumented in this encounter Additional Health Concerns Assessment Noted Time PHQ-9 Depression Total Score: 0 08/05/20 21 3:00 PM CDT documented as of this encounter Care Teams Book Sewing Machine Operator Relationship Specialty Start Date End Date Vladimir Luis MD [address] [place] [address] PCP - General Family Medicine 07/25/16 01/07/22 Nicho Posada MD [address] [place] [address] [address] [place] [address] PCP - General Family Medicine 01/08/22 Mark Mai DPM [address] [place] [address] Consulting Physician Podiatry 07/25/16 07/31/22 María Ochoa APRN, MECHANICAL ASSEMBLY [address] [place] [address] Referring Provider Advanced Practice Nurse 05/01/21 Gregorio Garza DPM [address] [place] [address] [employer] [address] [place] [address] Consulting Physician Podiatry 07/03/22 documented as of this encounter
--- OUTSIDE RECORDS SUMMARY | 2025-03-31 00:58 | XMS_ITS | Encounter Summary ---
Author Organization [facility] Address [address] [place] [address] Phone Care Team Providers Care Speech Therapy Teacher Name Role Phone Vladimir Luis MD Primary Care Provider [phone] Mark Mai DPM Unavailable Unavailab María Haile STEEL SASH ERECTOR, SAND AND GRAVEL PLANT OPERATOR Unavailable [phone] Nicho Posada MD Primary Care Provider [phone] Gregorio Garza DPM Unavailable Unavailable Reason for Visit * Reason Comments Medication Refill Encounter Details Date Type Department Care Team (Late st Contact Info) Description 12/23/2021 Refill [facility] [address] [place] [address] Brian Madsen MD [facility] [place] [address] Medication Refill Social History Tobacco Use Types Packs/Day Years Used Date Smoking Tobacco: Never Smokeless Tobacco: Never Alcohol Use Standard Drinks/Week Comments Yes 1 (1 standard drink = 0.6 oz pur e alcohol) Color Blender PHQ-2 Answer Date Recorded Total Score - [...] COVID-19? No / Unsure 12/02/2021 4:02 PM BED AND BREAKFAST COOK documented as of this encounter Plan of Treatment Not on file documented as of this encounter Visit Diagnoses Not on filedocumented in this encounter Additional Health Concerns Assessment Noted Time PHQ-9 Depression Total Score: 0 08/05/20 21 3:00 PM CDT documented as of this encounter Care Teams Speech Therapy Teacher Relationship Specialty Start Date End Date Vladimir Luis MD [address] [place] [address] PCP - General Family Medicine 07/25/16 01/07/22 Nicho Posdaa MD [address] [place] [address] [address] [place] [address] PCP - General Family Medicine 01/08/22 Mark Mai DPM [address] [place] [address] Consulting Physician Podiatry 07/25/16 07/31/22 María Ochoa APRN, SAND AND GRAVEL PLANT OPERATOR [address] [place] [address] Referring Provider Advanced Practice Nurse 05/01/21 Gregorio Garza DPM [address] [place] [address] [employer] [address] [place] [address] Consulting Physician Podiatry 07/03/22 documented as of this encounter
--- OUTSIDE RECORDS SUMMARY | 2025-03-31 00:58 | XMS_ITS | Clinical Summary ---
Author Organization [facility] Address [facility] [place] [address] Care Team Providers Care Wool Sampler Name Role Phone Puma Coronado MD Unavailable Edu Saavedra MD Unavailable Unavailab Alexis Deras MD Unavailable [phone] Familia Ford APRN Unavailable [phone] Nicho Posada MD Primary Care Provider + [phone] Dhaval Dyer MD Unavailable Allergies No known active allergies Medications aspirin EC 81 MG EC tablet Take 1 tablet (81 mg total) by mouth daily. Active atorvastatin 20 MG tablet Take 1 tablet (20 mg total) by mouth daily. 1 8 Active nitroglycerin (NITROSTAT) 0.4 MG SL tablet [...] hours as needed for Pain. 60 tablet 2 Active Multiple Vitamins-Minera ls (MULTIVITAMIN ADULT EXTRA C OR) Take 1 tablet by mouth daily. Active dapagliflozin (FARXIGA) 10 MG Tab Take 10 mg by mouth daily. 30 tablet 11 3 Active amLODIPine (NORVASC) 5 MG tablet Take 1 tablet (5 mg total) by mouth daily. Active Continuous Blood Gluc Sensor (DEXCOM G6 SENSOR) Misc CHANGE SENSOR EVERY 10 DAYS 3 Active Continuous Blood Gluc Transmit (DEXCOM G6 TRANSMITTER) Misc CHANGE TRANSMITTER EVERY 3 MONTHS 3 Active B-D UF III MINI PEN NEEDLES 31G X 5 MM Misc 3 Active insulin degludec (TRESIBA FLEXTOUCH) 200 UNIT/ML injection (PEN) Inject 18 Units into the skin daily. 3 Active losartan (COZAAR) 100 MG tablet Take 1 tablet (100 mg total) by mouth daily. 3 Active LORazepam (ATIVAN) 2 MG tabletIndicatio ns:Anxiety due to invasive procedure Take 1 tablet (2 mg total) by mouth once as needed for Other (take 15 minutes before MRI). 1 tablet 4 Active furosemide (LASIX) 40 MG tablet Take 0.5 tablets (20 mg total) by mouth daily. 5 Active Active Problems Problem Noted Date Diagnosed Date AV block 12/07/2023 Pacemaker 10/27/2023 Sinus node dysfunction ([facility]) 023 Ankle fracture, right, closed, initial encounter [...] chronic kidney disease, or chronic kidney disease ([facility]) 10/29/2022 Chronic diastolic congestive heart failure ([facility]) 10/29/2022 Atherosclerotic heart diseas e of [place] coronary artery without angina pectoris 10/29/2022 Chronic venous hypertension (idiopathic) with ulcer of right lower extremity ([facility]) 10/29/2022 Syncope 10/16/2022 Carotid stenosis 04/24/2022 Vitamin D deficiency 07/16/2021 Microalbuminuria 07/16/2021 Diabetic nephropathy associa vinay with type 2 diabetes mellitus ([facility]) 05/28/2021 Bilateral leg edema 05/28/2021 PVC (premature ventricular contraction) 02/28/20 21 Syncope, unspecified syncope type 02/27/2021 Systolic murmur 01/17/2021 PVC (pulmonary venous congestion) 01/17/2021 Onychocryptosis 08/16/2020 Chest pain 07/11/2019 CKD (chronic kidney disease) stage 3, GFR 30-59 ml/min 07/11/2019 [place] or callus 10/14/2018 Type 2 diabetes mellitus wit h peripheral angiopathy ([facility]) 10/14/2018 Nuclear sclerotic cataract of left eye 8 Overview (10/25/2018): Overview: RIGHT CATARACT SURGERY [facility] DIABETIC [place]'s esophagus without dysplasia 03/01/2018 Overview (10/14/2018): Description: 02/19/2018, Dr. Saavedra. Diabetic polyneuropathy asso ciated with type 2 diabetes mellitus ([facility]) 02/25/2018 Occult blood in stools 02/19/2018 Unintentional weight loss 02/19/2018 Family history of esophageal cancer 02/19/2018 Paronychia of great toe, right 10/15/2017 Skin ulceration ([facility]) 04/30/2017 Onychogryposis 08/21/2016 Stroke ([facility]) Pneumonia Obesity Iron deficiency anemia Hypertension Dyslipidemia Diabetes ([facility]) Coronary artery disease Resolved Problems Problem Noted Date Diagnosed Date Resolved Date Hospital discharge follow-up 11/24/2022 12/01/2022 Encounter for screening colonoscopy 02/19/2018 07/27/2020 Encounter for preventive health examination 12/30/2017 07/27/2020 Right carotid bruit 10/27/20 23 Encounters Date Type Department Care Team Description 03/28/2025 Telephone [facility] [address] [place] [address] Dhaval Dyer MD Cardiac Device Management 02/10/2025 11:15 AM CDT Office Visit [facility] [address] [place] [address] [place] [address] Servando Kumar, DPM Routine Foot Care; [place]/ Callous Removal 02/10/2025 Travel 02/01/2025 2:30 AM CDT Allied Health/Nurse Visit [facility] [address] [place] [address] Dhaval Dyer MD from Last 3 Months Immunizations Immunization Administration Dates Next Due Fluarix 09/11/2016 Influenza [...] Sex Assigned at Male 12/16/2024 1:31 PM ELECTRONICS INSTALLER Legal Sex Male 9:51 PM CDT Gender Identity Male 02/24/2022 7:56 AM CDT Sexual Orientation Not on file Last Filed Vital Signs Vital Sign Reading Time Taken Comments Blood Pressure 132/84 12/16/2024 1:39 PM ELECTRONICS INSTALLER Pulse 97 12/16/2024 1:39 PM ELECTRONICS INSTALLER Temperature 36.4 C (97.5 F) 05/08/2023 6:12 AM CDT Respiratory Rate 16 12/16/2024 1:39 PM ELECTRONICS INSTALLER Oxygen Saturation 95% 12/16/2024 1:39 PM ELECTRONICS INSTALLER Inhaled Oxygen Concentration - - Weight 105.9 kg (233 lb 6.4 oz) 025 11:04 AM CDT Height 181.6 cm (5' 11.5 ) 02/10/2025 1 1:04 AM CDT Body Mass Index 32.1 02/10/2025 11:04 AM CDT Plan of Treatment Upcoming Encounters Date Type Department Care Team (Late st Contact Info) Description 05/12/2025 10:30 AM CDT Office Visit [facility] [address] [place], [place] [address] Servando Kumar, DPJohn [address] [place] [address] 06/02/2025 3:30 AM CDT Allied Health/Nurse Visit [facility] [address] [place] [address] Dhaval Dyer MD [address] [place] [address] Health Maintenance Due Date Last Done Comments ASCVD LDL 1950 ASCVD Statin 1950 EGD-Everett's Surveillance 1950 Kidney Health Evaluation 1950 Lipid Panel 1950 Diabetes: Retinopathy Eye Exam 1968 Hepatitis C 1968 Zoster Vaccines (1 of 2) 2000 Hemoglobin A1C 04/08/2022 10/09/2021 COVID-19 Vaccine ( season) 2024 09/03/2022, 10/22/2021, 01/10/2021, Additional history exists RSV Immunization or 60+ Years (1 - 1-dose 75+ series) 2025 Colorectal Cancer Screening Colonoscopy (10 Years) 02/20/2028 02/19/2018 DTaP, Tdap and Td Vaccines (2 - Td or Tdap) 02/04/2029 02/04/2019 Pneumococcal Vaccine: 50+ Years Completed 09/18/2017, 05/07/2015 Meningococcal B Vaccine Aged Out No l onger eligible based on patient's age to complete this topic Meningococcal Vaccine Aged Out No gisele kinza eligible based on patient's age to complete this topic RSV Immunizations Under 20 Months Aged Out No longer eligible based on patient's age to complete this topic Medical Devices Implanted Type Area Psychiatric Clinical Nurse Specialist Device Identifier Shelf Expiration Date Model / Serial / Lot Medtronic His/Lbb- 023 Implanted:04/17 by Dhaval Dyer MD (Quantity not on file) Lead Implant [employer] 03/05/2025 [id number] / [id number] / Medtronic Ra-05/08/2023 Implanted:04/17 by Dhaval Dyer MD (Quantity not on file) Lead Implant [employer] 02/03/2025 [id number] / [id number] / Medtronic Delma Mri Dr-05/08/2023 Implanted:04/17 by Dhaval Dyer MD (Quantity not on file) Pacemaker [employer] 10/13/2024 [id number] / [id number] / Description:DX:SND Procedures Procedure Name Priority Date/Time Associated Diagnosis Comments COLONOSCOPY Routine 02/19/2018 12:00 AM CDT from Last 3 Months or Most Recently Relevant to Health Maintenance Results * Colonoscopy (02/19/2018 12:00 AM CDT) 02/19/2018 02/19/2018 Narrative [facility] TO EPIC CONVERSION - 02/19/2018 12:00 AM CDT Documented hx of procedure Procedure Note Franck Villarreal MD - 09/19/2018 Documented hx of procedure Generic Conversion Md [facility] PROCEDURE ORDERABLES Final Result Performing Organization Address City/State/[facility] Co de Phone Number [employer] TO EPIC CONVERSION from Last 3 Months or Most Recently Relevant to Health Maintenance Insurance [employer] Advance Directives Documents on File Type Date Recorded Patient Professional Application Designer Expl anation Advance Directive (Activated) 12/09/2022 3:17 PM POLST Advance Directives and Livin g Will 11/13/2022 12:18 PM POLST Advance Directive (Activated) 10/28/2022 9:57 AM POLST * Full Code (Latest Code Status on File) Date Activated Date Inactivated Comments 10/29/2022 10:23 AM 05/08/2023 5:34 AM * Full Code Date Activated Date Inactivated Comments 10/16/2022 4:00 PM 10/24/2022 12:19 AM Care Teams Wool Sampler Relationship Specialty Start Date End Date Nicho Posada MD [address] [place] [address] PCP - General FAMILY PRACTICE 02/21/22 Puma Coronado MD [address] [address] Mikael Cottage Parent CARDIOVASCULAR DISEASE 01/28/18 Edu Saavedra MD [address] [address] Consulting Physician SURGERY 01/28/18 Alexis Bush MD [address] [place] [address] Consulting Physician INTERVENTIONAL CARDIOLOGY 01/09/21 Familia Ford APRN [address] [place] [address] Nurse Practitioner NURSE PRACTITIONER 01/09/21 Dhaval Dyer MD [address] [place] [address] Consulting Physician CLINICAL CARDIAC ELECTROPHYSIOLOGY 05/08/23
--- OUTSIDE RECORDS SUMMARY | 2025-03-31 00:58 | XMS_ITS | Encounter Summary ---
Author Organization [facility] Address [facility] [place] [address] Care Team Providers Care Mechanical Maintenance Foreman Name Role Phone Puma Coronado MD Unavailable Edu Saavedra MD Unavailable Unavailab Alexis Deras MD Unavailable [phone] Familia Ford APRN Unavailable [phone] Nicho Posada MD Primary Care Provider + [phone] Dhaval Dyer MD Unavailable Encounter Details Date Type Department Care Team (Late st Contact Info) Description 05/04/2023 Hospital Orders Only [facility] Manager Pre/Post [address] [place] [address] Dhaval Dyer MD [address] [place] [address] Social History Tobacco Use Types Packs/Day Years Used Date Smoking Tobacco: Never Smokeless Tobacco: Never Alcohol Use Standard Drinks/Week Comments No 0 (1 standard drink = 0.6 oz pur e alcohol) Sex and Gender Information Value Date Recorded Sex Assigned at Male 12/16/2024 1:31 PM DIRECTOR HYDROGEN STORAGE ENGINEERING Legal Sex Male 9:51 PM CDT Gender [...] Assessment Author Status No 10/17/2022 12:00 AM DIRECTOR HYDROGEN STORAGE ENGINEERING Acti ve * RETIRED Are you blind or do you have serious difficulty seeing, even when wearing glasses? Answer Date of Assessment Author Status No 10/17/2022 12:00 AM DIRECTOR HYDROGEN STORAGE ENGINEERING Acti ve * Do you have serious [...] Office Visit [facility] [address] [place] [address] Servando Kumar, DPJohn [address] [place] [address] 06/02/2025 3:30 AM CDT Allied Health/Nurse Visit [facility] [address] [place] [address] Dhaval Dyer MD [address] [place] [address] documented as of this encounter Visit Diagnoses Not on filedocumented in this encounter Care Teams Mechanical Maintenance Foreman Relationship Specialty Start Date End Date Nicho Posada MD [address] [place] [address] PCP - General FAMILY PRACTICE 02/21/22 Puma Coronado MD [address] [facility] [place] [address] Mikael Correspondence Clerk CARDIOVASCULAR DISEASE 01/28/18 Edu Saavedra MD [address] [facility] [place] [address] Consulting Physician SURGERY 01/28/18 Alexis Bush MD [address] [facility] [place] [address] Consulting Physician INTERVENTIONAL CARDIOLOGY 01/09/21 Familia Ford APRN [address] [facility] [place] [address] Nurse Practitioner NURSE PRACTITIONER 01/09/21 Dhaval Dyer MD [address] [place] [address] Consulting Physician CLINICAL CARDIAC ELECTROPHYSIOLOGY 05/08/23 documented as of this encounter
--- OUTSIDE RECORDS SUMMARY | 2025-03-31 00:58 | XMS_ITS | Encounter Summary ---
Author Organization [facility] Address Formerly [facility] [place] [address] Care Team Providers Care Inspector Assemblies And Installations Name Role Phone Puma Coronado MD Unavailable Edu Saavedra MD Unavailable Unavailab Alexis Deras MD Unavailable [phone] Familia Ford APRN Unavailable [phone] Nicho Posada MD Primary Care Provider [phone] Dhaval Dyer MD Unavailable Reason for Visit * Reason Onset Date Comments Cardiac Device Management 03/28/2025 Encounter Details Date Type Department Care Team (Late st Contact Info) Description 03/28/2025 Telephone [facility] [address] [place] [address] Dhaval Dyer MD [address] [place] [address] Cardiac Device Management Social History Tobacco Use Types Packs/Day Years Used Date Smoking Tobacco: Never Smokeless Tobacco: Never Alcohol Use Standard Drinks/Week Comments No 0 (1 standard drink = 0.6 oz pur e alcohol) Sex and Gender Information Value Date Recorded Sex Assigned at Male 12/16/2024 1:31 PM DIVISION CONTROLLER Legal Sex Male 9:51 PM CDT Gender Identity Male 02/24/2022 7:56 AM CDT Sexual Orientation Not on file documented as of this encounter Functional Status * RETIRED Are you deaf or do you have serious difficulty hearing Answer Date of Assessment Author Status No 10/17/2022 12:00 AM DIVISION CONTROLLER Acti ve * RETIRED Are you blind or do you have serious difficulty seeing, even when wearing glasses? Answer Date of Assessment Author Status No 10/17/2022 12:00 AM DIVISION CONTROLLER Acti ve * Do you have serious [...] Beaver RN Active documented in this encounter Progress Notes * Manav Bowser RN - 03/30/2025 7:24 AM CDT Worksheet faxed to number provided * Manav Bowser RN - 03/29/2025 11:50 AM CDT Images from the original note were not included. Perioperative Management of Pacemakers/Defibrillators Patient Name: Yamil Mora Date of : 1950 Surgery Specifications: Type of Surgery: Colonoscopy/Endoscopy Location of Surgery: [facility] (Electrocautery, Lithotripsy) expected? [x] Yes possible [] No Device Specifications: Device Type: [x] Pacemaker [] Single Chamber [x] Medtronic [x] Dual Chamber [] [employer] [] ICD [] Biventricular [] Mario/St Edgardo [] Biotronik [] Sriram Device Programming: Pacing Mode: DDDR Minimum pacing rate: 60 Maximum pacing rate: 130 ICD VT therapy: na Effect of magnet on device: Effect on pacing function: DOO pacing until magnet removed Effect on ICD VT therapy: na Device function normal? [x] Yes [] No [] Unknown Is patient pacing-dependent? [] Yes [x] No(see comments) [] Unknown EP Recommendations Pre-operative device management: [x] No action required [] Device interrogation at [facility] before surgery [] Device interrogation on the day of surgery (Call device company to schedule) [] Reprogram device before surgery as follows: [] Program pacing to asynchronous pacing mode [] Turn off ICD arrhythmia detection Intra-operative device management: [x] No action required [] Apply magnet over the device [] Cardiac monitoring [] Have defibrillator pads immediately available [] Apply defibrillator pads on patient [] Use arterial line so pulse wave and blood pressure can be monitored during short applications of electrocautery. Post-operative device management: [x] No action required [] Remove magnet [] Device interrogation before patient discharge (Call device company to schedule) [] Reprogram device to original programming settings (Call device company to schedule) Comments: Underlying rhythm is NSR w 1:1 conduction [place] interval 212 ms Optometrist Assistant: Dr. Dhaval Dyer Signature: DHAVAL DYER MD Date: 03/29/2025 * Milli Elliott RN - 03/28/2025 4:16 PM CDT [facility] requesting eloise-op worksheet for patient to have Colonoscopy/Endoscopy on 03.31.25 1400. Fax to [phone]. documented in this encounter Plan of Treatment Upcoming Encounters Date Type Department Care Team (Late st Contact Info) Description 05/12/2025 10:30 AM CDT Office Visit Foot and Ankle [facility] [address] [place] [address] Servando Kumar, DPM [address] [place] [phone] 06/02/2025 3:30 AM CDT Allied Health/Nurse Visit [facility] [address] [place] [phone] Dhaval Dyer MD [address] [place] [address] documented as of this encounter Visit Diagnoses Not on filedocumented in this encounter Care Teams Inspector Assemblies And Installations Relationship Specialty Start Date End Date Nicho Posada MD [address] [phone] PCP - General FAMILY PRACTICE 02/21/22 Puma Coronado MD [address] [place] [address] Mikael Optometrist Assistant CARDIOVASCULAR DISEASE 01/28/18 Edu Saavedra MD [address] [place] [address] Consulting Physician SURGERY 01/28/18 Alexis Bush MD [address] [place] [address] Consulting Physician INTERVENTIONAL CARDIOLOGY 01/09/21 Familia Ford APRN [address] [place] [address] Nurse Practitioner NURSE PRACTITIONER 01/09/21 Dhaval Dyer MD [address] [place] [phone] Consulting Physician CLINICAL CARDIAC ELECTROPHYSIOLOGY 05/08/23 documented as of this encounter
--- OUTSIDE RECORDS SUMMARY | 2025-03-31 00:58 | XMS_ITS | Encounter Summary ---
Author Organization [facility] Address [address] [place] [address] Phone Care Team Providers Care Nurse Aide Name Role Phone María Ochoa APRN, DIESEL ENGINE PIPE FITTER Unavailable [phone] Nicho Posada MD Primary Care Provider [phone] Gregorio Garza DPM Unavailable Unavailable Encounter Details Date Type Department Care Team (Late st Contact Info) Description 12/01/2022 Lab Requisition [facility] Laboratory Services [address] [place] [address] Brian Madsen MD [address] [place] [address] Chronic kidney disease, unspecified Social History Tobacco Use Types Packs/Day Years Used Date Smoking Tobacco: Never Smokeless Tobacco: Never Alcohol Use Standard Drinks/Week Comments Yes 1 (1 standard drink = 0.6 oz pure alcohol) wine , 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 No / Unsure 11/20/2022 2:29 PM [facility]ER[facility] documented as of this encounter Plan of Treatment Not on file documented as of this encounter Procedures Procedure Name Priority Date/Time Associated Diagnosis Comments RENAL FUNCTION PANEL (RFP) Routine 12/01/2022 9:25 AM [facility] Chronic kidney disease, unspecified ADJUSTED CALCIUM*[facility] Routine 12/01/2022 9:25 AM [facility]ERONE Chronic kidney disease, unspecified documented in this encounter Results * ADJUSTED CALCIUM*[facility] (12/01/2022 9:25 AM [facility]ER[facility]) ADJUSTED CALCIUM 9.6 8.8 - 10.0 mg/dL 12/01/2022 1:00 PM [facility] Blood Venipuncture / Unknown 12/01/2022 9:25 AM CHAPERONE 12/01/2022 10:22 AM [facility] us Brian Madsen MD CHEMISTRY ORDERABLES Final Result [address] [address] * (ABNORMAL) RENAL FUNCTION PANEL (RFP) (12/01/2022 9:25 AM [facility]) SODIUM 140 133 - 145 mmol/L 12/01/2022 12:34 PM [facility] POTASSIUM 4.3 3.5 - 5.1 mmol/L 12/01/2022 12:34 PM [facility] CHLORIDE 107 96 - 108 mmol/L 12/01/2022 12:34 PM [facility] CO2, VENOUS 29 21 - 32 mmol/L 12/01/2022 12:34 PM [facility] ANION GAP 8.3(L) 10.0 - 20.0 mmol/L 12/01/2022 12:34 PM [facility] GLUCOSE 226(H) 83 - 110 mg/dL 12/01/2022 12:34 PM [facility] Comment: Venipuncture should occur prior to administration of sulfasalazine and/or sulfapyridine. Glucose can be falsely depressed after administration of sulfasalazine, and falsely elevated with administration of sulfapyridine. BUN 21(H) 6 - 19 mg/dL 12/01/2022 12:34 PM [facility] CREATININE, BLOOD 1.20 0.50 - 1.30 mg/dL 12/01/2022 12:34 PM [facility] BUN/CREATININE RATIO 18 12 - 20 ratio 12/01/2022 12:34 PM [facility] ALBUMIN 2.9(L) 3.4 - 4.8 g/dL 12/01/2022 12:34 PM [facility] CALCIUM 8.7(L) 8.8 - 10.0 mg/dL 12/01/2022 12:34 PM [facility] Comment:Calcium low. Correct ed calcium to follow. PHOSPHORUS 3.7 2.6 - 4.5 mg/dL 12/01/2022 12:34 PM [facility] GFR, ESTIMATED 64 12/01/2022 12:34 PM [facility] Comment: This eGFR is calculated using [...] Blood Venipuncture / Unknown 12/01/2022 9:25 AM [facility] 12/01/2022 10:22 AM [facility] us Brian Madsen MD CHEMISTRY ORDERABLES Final Result [facility] [address] [place] [address] documented in this encounter Visit Diagnoses Diagnosis Chronic kidney disease, unspecified documented in this encounter Additional Health Concerns Assessment Noted Time PHQ-9 Depression Total Score: 0 08/05/20 21 3:00 PM CDT documented as of this encounter Care Teams Nurse Aide Relationship Specialty Start Date End Date Nicho Posada MD [address] [place] [address] PCP - General Family Medicine 01/08/22 María Ochoa APRN, DIESEL ENGINE PIPE FITTER [address] [place] [address] Referring Provider Advanced Practice Nurse 05/01/21 Gregorio Garza DPM [phone] [place] [address] Consulting Physician Podiatry 07/03/22 documented as of this encounter
[2025-03-31 13:32] VITALS: BP 150/90; PULSE 95; RESP 20; TEMP 36.1; O2SAT 95; BMI 28.0
--- NOTE | 2025-03-31 13:42 | P.PNAN_ITS ---
Anes - Initial Pre Proc Eval Procedure: Operation Date: 03/31/25 14:00 Proposed Procedures p Screening Colonoscopy - Bertin López MD Date/Time: 03/31/25 13:42 Surgeon: Bertin López MD Pre Op Diagnosis: Screening, Unspecified atrial fibrillation Patient Data Age: 75 Gender: M Height: 1.83 m Weight: 93.6 kg Last Vital Signs Temp 36.1 C L 03/31/25 13:32 Pulse 95 03/31/25 13:32 Resp 20 03/31/25 13:32 BP 150/90 H 03/31/25 13:32 Pulse Ox 95 03/31/25 13:32 O2 Del Method Room Air 03/31/25 13:32 Allergies Allergy/AdvReac Type Severity Reaction Status Date / Time No Known Allergies Allergy Verified 03/31/25 13:28 Home Medications Medication Instructions Recorded Confirmed Type aspirin 81 mg tablet,delayed 81 mg PO DAILY 12/26/21 03/31/25 History release blood-glucose,tip puncher,cont 12/26/21 02/06/25 History (Dexcom G6 Director Of Safety And Security) insulin syringe-needle U-100 1 mL 12/26/21 02/06/25 History 29 gauge x 1/2 (BD Insulin Syringe) insulin syringe-needle U-100 1 mL #500 ea 05/08/23 02/06/25 Rx 31 gauge x 5/16 (BD Insulin Syringe Ultra-Fine) pen needle, diabetic 31 gauge x #1,600 ea 02/11/24 02/06/25 Rx 5/16 (BD Ultra-Fine Short Pen Needle) nitroglycerin 0.4 mg sublingual 0.4 mg sublingual Q5M PRN chest 07/04/24 03/23/25 Rx tablet pain #25 tabs insulin lispro 200 unit/mL (3 mL) 40 unit (0.2 mL) subcut BID #18 mL 10/06/24 03/23/25 Rx subcutaneous pen (Humalog KwikPen U-200 Insulin) losartan 100 mg tablet 100 mg PO DAILY 10/10/24 03/31/25 History atorvastatin 20 mg tablet See Rx Instructions .Route 12/26/24 03/31/25 Rx .COMPLEX #90 tabs blood-glucose sensor (Dexcom G6 #9 ea 12/26/24 02/06/25 Rx Sensor device) dapagliflozin propanediol 10 mg See Rx Instructions .Route 12/26/24 03/31/25 Rx tablet (Farxiga) .COMPLEX #90 tabs omeprazole 40 mg capsule,delayed See Rx Instructions .Route 12/26/24 03/31/25 Rx release .COMPLEX #90 caps Resmed CPAP #1 ea 01/16/25 02/06/25 Rx CPAP #1 ea 02/06/25 02/06/25 Rx eplerenone 25 mg tablet 25 mg PO DAILY 02/06/25 03/31/25 History insulin degludec 200 unit/mL (3 20 unit subcut QAM 02/06/25 03/31/25 History mL) subcutaneous pen (Tresiba FlexTouch U-200 insulin) multivitamin 1 tablet PO DAILY 02/06/25 03/31/25 History semaglutide 2 mg/dose (8 mg/3 mL) See Rx Instructions .Route 02/08/25 03/23/25 Rx subcutaneous pen injector (Ozempic) .COMPLEX #3 mL blood-glucose transmitter (Dexcom #1 ea 03/20/25 Rx G6 Transmitter device) Patient hx anesthesia problems: none Family hx anesthesia problems: none Results Review: All pre-operative results and documents have been reviewed as part of the pre-operative evaluation. [facility] Past Medical History Medical History Atrial fibrillation Fracture, ankle Syncope and collapse Diabetes mellitus type 2, uncontrolled Diabetic neuropathy Hx of essential hypertension Hx of gastroesophageal reflux (GERD) Hx of diabetes mellitus History of anemia Family History Family History Father Heart problem Grandparent Diabetes mellitus Grandparent Diabetes mellitus Social History Social History Social History: Caffeine-occasionally Smoking status: Never smoker Alcohol intake: never Alcohol use details: SIP OF WINE AT [place]ASS DAILY Substance use: never Lack of Transportation: No Lack of Food: Never True Current Housing: I Have Housing Concerned About Future Housing: No Difficulty Paying Gas/Electric Bills: No Difficulty Paying for Meds: No Currently Unemployed: No Education: Master's Degree or Higher Difficulty w/ Childcare or Family Care: No Living arrangements: alone Occupation/Education: occupation 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 Informed Consent: The patient's anesthetic plan and its attendant risks and benefits were discussed with the patient/family/POA. Questions were solicited and answers provided to the satisfaction of the patient/family/POA.
[2025-03-31] MEDS: LACTATED RINGERS 1,000 ML 150 ML IV CONT (13:51)
--- NOTE | 2025-03-31 14:12 | P.HP_ITS ---
History of Present Illness History of Present Illness Consent: Risks, benefits, and alternatives have been discussed and questions answered. Patient agrees to proceed with procedure. Chief complaint: Screening, Unspecified atrial fibrillation Narrative: Yamil Mora is a 75 year old male here for screening colonoscopy, last one more than 2 years ago Review of Systems Review of Systems: All systems reviewed & are unremarkable except as noted in HPI and below PMFSH Past Medical History Medical History (Updated 03/31/25 @ 14:13 by Bertin López MD) Colon cancer screening Atrial fibrillation Fracture, ankle Syncope and collapse Diabetes mellitus type 2, uncontrolled Diabetic neuropathy Hx of essential hypertension Hx of gastroesophageal reflux (GERD) Hx of diabetes mellitus History of anemia Family History Family History Father Heart problem Grandparent Diabetes mellitus Grandparent Diabetes mellitus Social History Social History Social History: Caffeine-occasionally Smoking status: Never smoker Alcohol intake: never Alcohol use details: SIP OF WINE AT [place] DAILY Substance use: never Lack of Transportation: No Lack of Food: Never True Current Housing: I Have Housing Concerned About Future Housing: No Difficulty Paying Gas/Electric Bills: No Difficulty Paying for Meds: No Currently Unemployed: No Education: Master's Degree or Higher Difficulty w/ Childcare or Family Care: No Living arrangements: alone Occupation/Education: occupation 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 Gender identity (if verbalized by the patient): Male Spiritual care concerns: No Meds Home Medications and Allergies Home Medications Medication Instructions Recorded Confirmed Type aspirin 81 mg tablet,delayed 81 mg PO DAILY 12/26/21 03/31/25 History release blood-glucose,interior decorator painting,cont 12/26/21 02/06/25 History (Dexcom G6 Java Performance Engineer) insulin syringe-needle U-100 1 mL 12/26/21 02/06/25 History 29 gauge x 1/2 (BD Insulin Syringe) insulin syringe-needle U-100 1 mL #500 ea 05/08/23 02/06/25 Rx 31 gauge x 5/16 (BD Insulin Syringe Ultra-Fine) pen needle, diabetic 31 gauge x #1,600 ea 02/11/24 02/06/25 Rx 5/16 (BD Ultra-Fine Short Pen Needle) nitroglycerin 0.4 mg sublingual 0.4 mg sublingual Q5M PRN chest 07/04/24 03/23/25 Rx tablet pain #25 tabs insulin lispro 200 unit/mL (3 mL) 40 unit (0.2 mL) subcut BID #18 mL 10/06/24 03/23/25 Rx subcutaneous pen (Humalog KwikPen U-200 Insulin) losartan 100 mg tablet 100 mg PO DAILY 10/10/24 03/31/25 History atorvastatin 20 mg tablet See Rx Instructions .Route 12/26/24 03/31/25 Rx .COMPLEX #90 tabs blood-glucose sensor (Dexcom G6 #9 ea 12/26/24 02/06/25 Rx Sensor device) dapagliflozin propanediol 10 mg See Rx Instructions .Route 12/26/24 03/31/25 Rx tablet (Farxiga) .COMPLEX #90 tabs omeprazole 40 mg capsule,delayed See Rx Instructions .Route 12/26/24 03/31/25 Rx release .COMPLEX #90 caps Resmed CPAP #1 ea 01/16/25 02/06/25 Rx CPAP #1 ea 02/06/25 02/06/25 Rx eplerenone 25 mg tablet 25 mg PO DAILY 02/06/25 03/31/25 History insulin degludec 200 unit/mL (3 20 unit subcut QAM 02/06/25 03/31/25 History mL) subcutaneous pen (Tresiba FlexTouch U-200 insulin) multivitamin 1 tablet PO DAILY 02/06/25 03/31/25 History semaglutide 2 mg/dose (8 mg/3 mL) See Rx Instructions .Route 02/08/25 03/23/25 Rx subcutaneous pen injector (Ozempic) .COMPLEX #3 mL blood-glucose transmitter (Dexcom #1 ea 03/20/25 Rx G6 Transmitter device) Allergies Allergy/AdvReac Type Severity Reaction Status Date / Time No Known Allergies Allergy Verified 03/31/25 13:28 Vital Signs Vital Signs - 24 hr 03/31/25 13:32 Temperature 97 F L Pulse Rate 95 Respiratory Rate 20 Blood Pressure 150/90 H Pulse Oximetry 95 Oxygen Delivery Room Air Exam Const: General: comfortable and no acute distress HENMT: Face/Nose/Sinus: Normal nares present Eyes: General: appearance normal, both eyes and all related structures Neck: Neck: no JVD Resp: Auscultation: clear to auscultation bilaterally Cardio: Rate: regular rate Rhythm: regular rhythm GI: Inspection: non-distended GI Palp: Yes Soft to palpation Skin: General skin exam: normal color Neuro: Speech: normal speech Extrem: General: normal to inspection Psych: Mental Status: mental status grossly normal Assessment and Plan Assessment and plan (1) Colon cancer screening: Code(s): Z12.11 - Encounter for screening for malignant neoplasm of colon Status: Acute Assessment and Plan: colonoscopy
[2025-03-31 14:44] VITALS: BP 113/52; PULSE 65; RESP 18; O2SAT 100
--- NOTE | 2025-03-31 14:53 | SUR.PHASEII ---
Pt glucose per dexcom 74. Pt provided with uriel alberto.
[2025-03-31 14:54] VITALS: BP 110/86; PULSE 61; RESP 24; O2SAT 100
[2025-03-31 15:04] VITALS: BP 140/83; PULSE 65; RESP 20; O2SAT 100
== END 2025-03-31 15:20 | disposition home or self-care (01) ==
PROVIDERS: PCP Family Medicine; Referring Provider Family Medicine; Visit Provider Internal Medicine Gastroenterology
PROC: 0DJD8ZZ Inspection of Lower Intestinal Tract, Via Natural or Artificial Opening Endoscopic (ICD-10-PCS; CPT 45378; principal; 2025-03-31 14:00)
DX: Z12.11 Encounter for screening for malignant neoplasm of colon (principal); D12.3 Benign neoplasm of transverse colon; D12.2 Benign neoplasm of ascending colon
CPT/HCPCS: 45385; 45381; 88305; J2704; J7120

== ENCOUNTER 2025-08-23 14:31 | Outpatient (CLI) | payer BC, SELFPAY ==
[2025-08-23 19:16] LABS: Alanine Aminotransferase 32 U/L (6-50); Albumin Level 4.0 g/dL (3.5-5.1); Alkaline Phosphatase 75 U/L (38-126); Anion Gap 7 mmol/L (4-12); Aspartate Amino Transferase 45 U/L (17-59); Bilirubin,Total 0.4 mg/dL (0.2-1.3); Blood Urea Nitrogen 42 mg/dL (9-20); Calcium 9.0 mg/dL (8.4-10.2); Carbon Dioxide 29 mmol/L (22-30); Chloride 103 mmol/L (98-107); Cholesterol 128 mg/dL (0-200); Estimated Glomerular Filt Rate 53; Glucose 153 mg/dL (65-110); HDL Direct 45 mg/dL; Potassium 4.5 mmol/L (3.4-5.0); Sodium 139 mmol/L (137-145); Total Protein 7.3 g/dL (6.3-8.2); Triglycerides 119 mg/dL (<150)
[2025-08-23 19:20] LABS: Hemoglobin A1C 6.9 % (<5.7)
== END 2025-08-23 14:32 | disposition home or self-care (01) ==
LOC: ANHGOSHLAB 14:32
PROVIDERS: PCP Family Medicine; Visit Provider Family Medicine
DX: E11.9 Type 2 diabetes mellitus without complications (principal)
CPT/HCPCS: 36415; 80053; 80061; 83036